=== PATIENT | male | born 1965 | race Caucasian/White ===

== ENCOUNTER → 2017-04-23 | Outpatient (REF) | payer MEDICAID ==
[~2017-04-23] MED LIST: /ADVA50050 IN; /ADVA50050 INH; /AMLO25TA PO; /AUGM25TA OR; /MOM400 PO; /TIOT18INH INH; /VERA40TA OR; ABIL5TAB5 PO; ACET65TA OR; ACTIVITY; ADV250INH INH; ALBU17IN INH; ALBUTEROL INH; ALBUTEROL INHALER INH; ALBUTEROL NEBS NEB; ALLE25CA OR; AMLO10TA2 PO; AMOX875T2 PO; ATOR1TAB21 PO; AZIT250T3 PO; Advair Diskus INH; Albuterol Inhaler INH; Albuterol Sulfate INH; Aspirin PO; BACT800T OR; CEFT250T OR; COLA100C2 OR; COLA50CA3 PO; COMBAER6 INH; DIET; DUONSOL IN; FLUC10TA OR; FOLI1TAB2 PO; FURO20TA2 OR; GUAI20TA PO; HANDIHALER INH; HYDR25TA7 OR; HYDR25TAB PO; IBUP100SUS PO; IBUP600T26 PO; IPRASOL4 IN; IPRASOL4 INH; LEVA500T PO; LEVA750T OR; LIPI20TA OR; LIPI20TA PO; LORATADINE OR; MIRALEX OR; MUCI600T34 PO; MULTLIQ7 PO; NICO14DI20 TD; NICO21DI4 TD; NICO21DI5 TD; NORCOTAB PO; NORV5TAB OR; Naprosyn; OMEP10CASR PO; OMEP20TA7 OR; OMEP40CA2 PO; Omeprazole PO; PERC7.5T12 PO; POTA20TA2 OR; PRED10TA PO; PRED10TA2 OR; PRED20TA OR; PRED20TAB PO; PRED50TA OR; PRED5SOL2 PO; PREDNISONE TAPER; PRIL20CA PO; PRIL40CA PO; PSEUDOEPHEDRINE OR; Ranitidine PO; SENN8.6T14 OR; SING10TA32 PO; SPIRIVA INH; Singular OR; TESS100C OR; TIOT18INH INH; TIZA4CAP3 PO; TRAZ50TA4 PO; TRIC145T19 OR; TRIL150T PO; TRILEPTAL PO; TYLE325T5 PO; VICO5TAB OR; VITAMIN D50000 UNT OR; WELLTAB38 PO; ZANT300T OR; ZITH500T OR; ZOLO50TA PO; [UNRECOGNIZED DRUG - OTHER]; [UNRECOGNIZED DRUG - REMARK]; calcium chew
[2017-04-23 13:48] LABS: BASO # 0.1 K/mm3 (0.0-0.2); BASO % 0.6 % (0.0-1.0); EOS # 0.2 K/mm3 (0.0-0.50); EOS % 2.1 % (0.0-3.0); LARGE UNSTAINED CELL # 0.1 K/mm3 (0.0-0.4); LARGE UNSTAINED CELL % 1.4 % (0.0-4.0); LYMPH # 2.4 K/mm3 (1.5-4.5); MEAN CORPUSCULAR HEMOGLOBIN 28.7 pg (27.0-33.0); MEAN CORPUSCULAR HGB CONC 32.9 g/dl (32.0-36.5); MEAN CORPUSCULAR VOLUME 87.2 fl (80.0-96.0); MONO # 0.5 K/mm3 (0.0-0.8); MONO % 5.2 % (0.0-5.0); NEUTROPHILS # 6.6 K/mm3 (1.8-7.7); NEUTROPHILS % 67.7 % (36.0-66.0); PLATELET COUNT, AUTOMATED 237 k/mm3 (150-450); RED CELL DISTRIBUTION WIDTH 12.6 % (11.5-14.5); WHITE BLOOD COUNT 9.8 K/mm3 (4.0-10.0)
[2017-04-23 16:50] LABS: ALBUMIN 3.9 GM/DL (3.2-5.2); ALBUMIN/GLOBULIN RATIO 1.08 (1.00-1.93); ALKALINE PHOSPHATASE 112 U/L (45-117); ALT/SGPT 34 U/L (12-78); ANION GAP 6 MEQ/L (8-16); AST/SGOT 16 U/L (15-37); BILIRUBIN,TOTAL 0.5 MG/DL (0.2-1.0); BLOOD UREA NITROGEN 9 MG/DL (7-18); CALCIUM LEVEL 9.1 MG/DL (8.5-10.1); CARBON DIOXIDE LEVEL 30 MEQ/L (21-32); CHLORIDE LEVEL 103 MEQ/L (98-107); CHOLESTEROL LEVEL 214 MG/DL (<200); CREATININE FOR GFR 0.86 MG/DL (0.70-1.30); GLOMERULAR FILTRATION RATE > 60.0 (>56); GLUCOSE, FASTING 83 MG/DL (70-105); POTASSIUM SERUM 3.9 MEQ/L (3.5-5.1); SODIUM LEVEL 139 MEQ/L (136-145); TOTAL PROTEIN 7.5 GM/DL (6.4-8.2); TRIGLYCERIDES LEVEL 222 MG/DL (<150)
== END ==
LOC: M LAB REF 13:19
PROVIDERS: ATTEND Family Medicine Addiction Medicine
DX: R73.09 Other abnormal glucose (principal)

== ENCOUNTER 2017-06-02 12:33 | Emergency (ER) | payer OTHER ==
[~2017-06-02] VITALS: Ht 172.7 cm; Wt 85.9 kg
[~2017-06-02 12:33] MED LIST changes: +ABIL1TAB11 PO; -ABIL5TAB5 PO; +AZIT-12 PO; -AZIT250T3 PO; -FOLI1TAB2 PO; +FOLI1TAB4 PO; +IBUP-1022 PO; -IBUP600T26 PO; +LEVA1TAB2 PO; -LEVA500T PO; +TRAZ50TA11 PO; -TRAZ50TA4 PO
[2017-06-02] MEDS ORDERED: ALBU17IN2 (12:47)
[2017-06-02] MEDS ORDERED: BUPR200T (12:47)
[2017-06-02] MEDS ORDERED: MIRT15TA3 (12:47)
[2017-06-02] MEDS ORDERED: SPIR1CAP (12:47)
[2017-06-02] MEDS ORDERED: OXCA150T (12:47)
[2017-06-02] MEDS ORDERED: ATOR1TAB21 (12:47)
[2017-06-02] MEDS ORDERED: ALBU83IN (12:47)
[2017-06-02] MEDS ORDERED: OMEP20CA3 (12:47)
[2017-06-02] MEDS ORDERED: CLINDAMYCIN 150 MG CAP PO ONE (13:30)
[2017-06-02] MEDS ORDERED: LIDOCAINE 2% MDV 20 ML VIAL SC ONE (13:30)
[2017-06-02] MEDS ORDERED: CLEO300C2 PO (14:06)
[2017-06-02 14:10] VITALS: BP 113/67
== END 2017-06-02 14:11 | disposition home or self-care (01) ==
LOC: M ED 12:33
DX: L02.413 Cutaneous abscess of right upper limb (principal); L02.512 Cutaneous abscess of left hand; M54.5 Low back pain; F41.9 Anxiety disorder, unspecified; F31.9 Bipolar disorder, unspecified; K21.9 Gastro-esophageal reflux disease without esophagitis; E78.00 Pure hypercholesterolemia, unspecified; G47.33 Obstructive sleep apnea (adult) (pediatric); F15.90 Other stimulant use, unspecified, uncomplicated; F17.200 Nicotine dependence, unspecified, uncomplicated; Z79.51 Long term (current) use of inhaled steroids; Z79.899 Other long term (current) drug therapy

== ENCOUNTER 2017-06-04 12:51 | Emergency (ER) | payer OTHER ==
[~2017-06-04] VITALS: Ht 172.7 cm; Wt 84.2 kg
[~2017-06-04 12:51] MED LIST changes: +ALBU17IN2; +ALBU83IN; +ATOR1TAB21; +BUPR200T; +CLEO300C2 PO; +MIRT15TA3; +OMEP20CA3; +OXCA150T; +SPIR1CAP
[2017-06-04 12:53] VITALS: BP 105/69
[2017-06-04] MEDS ORDERED: TRIP1OIN4 TOP (13:50)
== END 2017-06-04 14:31 | disposition home or self-care (01) ==
LOC: M ED 12:51
DX: L03.114 Cellulitis of left upper limb (principal); I10 Essential (primary) hypertension; J45.909 Unspecified asthma, uncomplicated; E78.5 Hyperlipidemia, unspecified; F43.10 Post-traumatic stress disorder, unspecified; F41.9 Anxiety disorder, unspecified; F31.9 Bipolar disorder, unspecified; F17.210 Nicotine dependence, cigarettes, uncomplicated; Z79.899 Other long term (current) drug therapy

== ENCOUNTER 2017-06-10 22:12 | Emergency (ER) | payer OTHER ==
[~2017-06-10] VITALS: Ht 172.7 cm; Wt 83.2 kg
[~2017-06-10 22:12] MED LIST changes: +TRIP1OIN4 TOP
[2017-06-10 22:24] VITALS: BP 114/72
[2017-06-10] MEDS ORDERED: ADVA230A INH (22:29)
--- NOTE | 2017-06-10 22:50 | REPUSA ---
CT of the head Clinical history: trauma. Comparison: 02/01/2015. Technique: Multiple axial CT images were obtained through the head without administration of contrast . Findings: The ventricles and sulci are symmetric bilaterally. There is no evidence of acute hemorrhag e or infarct. There is no midline shift, mass effect, or extra-axial fluid collection. The osseous st ructures are unremarkable. The visualized paranasal sinuses and mastoid air cells are clear. Impression: Negative study.
== END 2017-06-10 23:27 | disposition home or self-care (01) ==
LOC: EDBD 22:12 → M ED 22:12
DX: S00.93XA Contusion of unspecified part of head, initial encounter (principal); Y04.2XXA Assault by strike against or bumped into by another person, initial encounter; Y92.019 Unspecified place in single-family (private) house as the place of occurrence of the external cause; Y93.9 Activity, unspecified; Y99.8 Other external cause status; I10 Essential (primary) hypertension; J44.9 Chronic obstructive pulmonary disease, unspecified; F17.200 Nicotine dependence, unspecified, uncomplicated; Z79.51 Long term (current) use of inhaled steroids; Z79.899 Other long term (current) drug therapy

== ENCOUNTER 2019-01-05 18:57 | Emergency (ER) | payer MEDICAID, OTHER ==
[~2019-01-05] VITALS: Ht 172.7 cm; Wt 95.5 kg
[~2019-01-05 18:57] MED LIST changes: +ADVA230A INH; -AMLO10TA2 PO; +AMLO10TA5 PO; +FOLI1TAB11 PO; -FOLI1TAB4 PO; +IPRA0.00 IN; +IPRA0.00 INH; -IPRASOL4 IN; -IPRASOL4 INH; -NICO21DI5 TD; +NICO21DI6 TD; -OXCA150T; +OXCA150T21; +TIZA4CAP PO; -TIZA4CAP3 PO; +TRAZ-160 PO; -TRAZ50TA11 PO
[2019-01-05] MEDS ORDERED: NS 1,000 ML IV SCH (19:22)
[2019-01-05] MEDS ORDERED: IPRATROPIUM 0.5MG/ALBUTEROL 2.5MG INH SOL UD 3ML (DUONEB)(J7620) NEB PRN (19:30)
[2019-01-05] MEDS ORDERED: methylPREDNISolone INJ 125 MG/2 ML VIAL (J2930) IV ONE (19:30)
[2019-01-05] MEDS ORDERED: ASPIRIN 81 MG CHEW TABLET PO ONE (19:30)
[2019-01-05 19:33] LABS: BASO % 0.4 % (0.0-1.0); EOS # 0.3 10^3/uL (0.0-0.50); EOS % 2.7 % (0.0-3.0); HEMATOCRIT 47.2 % (42.0-52.0); HEMOGLOBIN 15.8 g/dl (13.5-17.5); LYMPH # 2.1 10^3/uL (1.5-4.5); LYMPH % 21.4 % (24.0-44.0); MEAN CORPUSCULAR HEMOGLOBIN 28.9 pg (27.0-33.0); MEAN CORPUSCULAR HGB CONC 33.5 g/dl (32.0-36.5); MEAN CORPUSCULAR VOLUME 86.3 fl (80.0-96.0); MONO # 0.8 10^3/uL (0.0-0.8); MONO % 8.4 % (0.0-5.0); NEUTROPHILS # 6.6 10^3/uL (1.8-7.7); NEUTROPHILS % 66.7 % (36.0-66.0); PLATELET COUNT, AUTOMATED 220 10^3/uL (150-450); RED BLOOD COUNT 5.47 10^6/uL (4.30-6.10); WHITE BLOOD COUNT 9.9 10^3/uL (4.0-10.0)
[2019-01-05 19:51] LABS: INR 0.95; PROTHROMBIN TIME 12.8 SECONDS (12.1-14.4)
[2019-01-05 19:56] LABS: VENOUS BASE EXCESS 0.5 (-2.0-2.0); VENOUS HCO3 26.9 MEQ/L (23.0-27.0); VENOUS O2 SATURATION 86.3 % (60.0-80.0); VENOUS PARTIAL PRESSURE CO2 49.3 mmHg (38.0-50.0); VENOUS PH 7.355 UNITS (7.330-7.430); VENOUS STANDARD HCO3 24.7 MEQ/L; VENOUS TOTAL CO2 28.4 MEQ/L (24.0-28.0)
[2019-01-05] MEDS ORDERED: ONDANSETRON 4MG/2ML VIAL (J2405) IV ONE (20:00)
[2019-01-05 20:09] LABS: ALBUMIN 3.5 GM/DL (3.2-5.2); ALT/SGPT 38 U/L (12-78); BILIRUBIN,DIRECT < 0.1 MG/DL (0.0-0.2); BILIRUBIN,TOTAL 0.3 MG/DL (0.2-1.0); BLOOD UREA NITROGEN 9 MG/DL (7-18); CALCIUM LEVEL 8.5 MG/DL (8.5-10.1); CARBON DIOXIDE LEVEL 31 MEQ/L (21-32); CHLORIDE LEVEL 103 MEQ/L (98-107); CPK CREATINE PHOSPHOKINASE 124 U/L (39-308); CREATININE FOR GFR 0.72 MG/DL (0.70-1.30); GLOMERULAR FILTRATION RATE > 60.0 (>56); GLUCOSE, FASTING 86 MG/DL (70-100); MB/CK RELATIVE INDEX 1.37 (< OR =4); POTASSIUM SERUM 4.1 MEQ/L (3.5-5.1); SODIUM LEVEL 140 MEQ/L (136-145); TOTAL PROTEIN 7.4 GM/DL (6.4-8.2); TROPONIN I < 0.02 NG/ML (< 0.10)
[2019-01-05 20:56] LABS: INFLUENZA A AMPLIFICATION NEGATIVE (NEGATIVE); INFLUENZA B AMPLIFICATION NEGATIVE (NEGATIVE)
--- NOTE | 2019-01-05 21:07 | REP ---
The portable chest, 07:53 p.m., single AP view, the patient upright: Comparison is 10/08, 12/18/2014. The lung lynch are clear. The cardiac size is normal. The varsha, mediastinum, and skeletal structures are unremarkable. Impression: Negative portable chest. There is no interval change. Electronically Signed by Greg Lovett MD 01/05/2019 08:58 P
[2019-01-05 21:15] VITALS: BP 127/63
[2019-01-05] MEDS ORDERED: KETOROLAC 30 MG/ML VIAL (J1885) IV ONE (21:45)
[2019-01-05] MEDS ORDERED: IPRATROPIUM 0.5MG/ALBUTEROL 2.5MG INH SOL UD 3ML (DUONEB)(J7620) NEB ONE (21:45)
--- NOTE | 2019-01-06 06:42 | ECGEPIP ---
Stationary ECG Study [facility] - ED Test Date: 2019-01-05 Pat Name: SEVERIANO DOYLE Department: Room: - Gender: M Jde Developer: : 1965 Requested By: CESAR CARSON Order Number: [id number] Reading MD: Jules Sorto Measurements Intervals [place] Rate: 89 P: 78 W[place]: 125 QRS: 82 QRSD: 69 T: 66 QT: 314 QTc: 383 Interpretive Statements SINUS RHYTHM POSSIBLE LEFT ATRIAL ENLARGEMENT SIMILAR TO 11/08/15 Electronically Signed On 01-06-2019 6:42:32 EST by Jules Sorto
== END 2019-01-05 22:07 | disposition left against medical advice (07) ==
LOC: M ED 18:57
DX: J44.1 Chronic obstructive pulmonary disease with (acute) exacerbation (principal); R06.02 Shortness of breath; E11.9 Type 2 diabetes mellitus without complications; I10 Essential (primary) hypertension; E78.5 Hyperlipidemia, unspecified; F17.200 Nicotine dependence, unspecified, uncomplicated
CPT/HCPCS: 36415; 71045; 80048; 80076; 82550; 82553; 82803; 85025; 85610; 87040; 87502; 93005; 93041; 96361; 96374; 96375; 99285; J2405; J2930

== ENCOUNTER 2019-09-09 04:42 | Inpatient (IN) | payer MEDICAID, SELFPAY ==
[~2019-09-09] VITALS: Ht 172.7 cm; Wt 74.7 kg
[~2019-09-09 04:42] MED LIST changes: -/ADVA50050 IN; -/ADVA50050 INH; -/AMLO25TA PO; -/MOM400 PO; -/TIOT18INH INH; -/VERA40TA OR; +ADVA1AER2 IN; +ADVA1AER2 INH; +HYDR-2541 PO; +HYDR-3715 PO; -HYDR25TAB PO; +IBUP100S44 PO; -IBUP100SUS PO; +MILK10SU PO; -NORCOTAB PO; +NORV2TAB PO; -OMEP20CA3; +OMEP20CA4; -OMEP40CA2 PO; +OMEP40CA97 PO; +PRED-351 PO; -PRED10TA PO; +SPIR1CAP INH; -TRAZ-160 PO; +TRAZ-252 PO; -TRIP1OIN4 TOP; +TRIPOIN9 TOP; +VERA1TAB23 OR
[2019-09-09] MEDS ORDERED: ONDANSETRON 4MG/2ML VIAL (J2405) IV ONE (05:30)
[2019-09-09] MEDS ORDERED: VANCOMYCIN HCL 1,000 MG, VIAL MATE ADAPTER 1 EACH in D5W 250 ML IV ONE (05:45)
[2019-09-09] MEDS ORDERED: PIPERACILLIN/TAZOBACTAM SOD 3.375 GM in D5W MINI-BAG PLUS 50 ML IV ONE (05:45)
[2019-09-09] MEDS: MORPHINE 4 MG/ML 1ML VIAL/SYRINGE (J2270) IV PRN ×4 (06:14→20:45)
[2019-09-09 06:22] LABS: BASO % 0.4 % (0.0-1.0); EOS # 0.3 10^3/uL (0.0-0.5); EOS % 2.9 % (0.0-3.0); HEMATOCRIT 44.6 % (42.0-52.0); HEMOGLOBIN 14.7 g/dl (13.5-17.5); LYMPH # 1.8 10^3/uL (1.5-5.0); LYMPH % 16.1 % (24.0-44.0); MEAN CORPUSCULAR HEMOGLOBIN 28.5 pg (27.0-33.0); MEAN CORPUSCULAR VOLUME 86.4 fl (80.0-96.0); MONO # 0.9 10^3/uL (0.0-0.8); MONO % 8.1 % (0.0-5.0); NEUTROPHILS # 8.2 10^3/uL (1.5-8.5); NEUTROPHILS % 72.1 % (36.0-66.0); PLATELET COUNT, AUTOMATED 211 10^3/uL (150-450); RED BLOOD COUNT 5.16 10^6/uL (4.30-6.10); WHITE BLOOD COUNT 11.4 10^3/uL (4.0-10.0)
--- NOTE | 2019-09-09 06:46 | REPVR ---
PROCEDURE INFORMATION: Exam: US Left Non-Vascular Joint or Other Extremity Structure, Limited Upper Extremity Exam date and time: 09/09/2019 6:22 AM Clinical history: 53 years old, male; Pain; Lower or forearm; Left; Additional info: Abscess left forearm TECHNIQUE: Imaging protocol: Left US Non-Vascular Joint or Other Extremity Structure. Limited exam of the upper extremity. COMPARISON: No relevant prior studies available. FINDINGS: Soft tissues: There is marked edema and increased echogenicity of the fat within the subcutaneous tissues of the left forearm. There is a somewhat poorly defined focal area of heterogeneous hypoechogenicity in the mid left forearm, likely representing complex fluid, measuring 2.0 x 1.7 x 2.4 cm. IMPRESSION: Somewhat poorly defined collection of complex fluid with marked adjacent edema and echogenic fat, consistent with early abscess or phlegmon. Electronically signed by: Marleni Gray On 09/09/2019 06:45:44 AM
[2019-09-09 06:51] LABS: BLOOD UREA NITROGEN 9 MG/DL (7-18); CALCIUM LEVEL 8.8 MG/DL (8.5-10.1); CARBON DIOXIDE LEVEL 29 MEQ/L (21-32); CHLORIDE LEVEL 106 MEQ/L (98-107); CREATININE FOR GFR 0.64 MG/DL (0.70-1.30); GLOMERULAR FILTRATION RATE > 60.0 (>56); GLUCOSE, FASTING 68 MG/DL (70-100); POTASSIUM SERUM 4.2 MEQ/L (3.5-5.1); SODIUM LEVEL 139 MEQ/L (136-145)
[2019-09-09] MEDS ORDERED: IPRATROPIUM 0.5MG/ALBUTEROL 2.5MG INH SOL UD 3ML (DUONEB)(J7620) NEB PRN (08:30)
--- NOTE | 2019-09-09 08:32 | CR.PDOC ---
General Surgery Consultation Date of Consultation 09/09/19 History and Physical CONSULT REPORT FOR: Purnima Dale MD (hospitalist service) REASON FOR CONSULTATION: left arm abscess HISTORY OF PRESENT ILLNESS: PAST MEDICAL HISTORY: 1. . PAST SURGICAL HISTORY: INCLUDES: 1. . PREVIOUS ANESTHESIA REACTIONS: ALLERGIES: Please see below. FAMILY HISTORY: . HOME MEDICATIONS: Please see below. REVIEW OF SYSTEMS: GENERAL: [Denies chills, reports weight gain, reports feeling febrile yesterday]. HEENT: [Denies blurred vision and double vision. Denies ear symptoms. Denies hoarseness]. NECK: Denies any neck pain]. CARDIOVASCULAR: [Denies chest pain and palpitations]. MUSCULOSKELETAL: [Denies arthralgias, back pain and thrombophlebitis]. SKIN: [Denies rash]. NEUROLOGIC: [Denies headache, stroke and transient ischemic attack]. PSYCHIATRIC: [Denies anxiety and depression]. ENDOCRINE: [Denies thyroid disease]. HEMATOLOGY/ONCOLOGY: [Denies bleeding or clotting disorder]. HEART: [Denies any chest pains, palpitations, paroxysmal dyspnea, orthopnea]. PULMONARY: [Denies chronic cough, dyspnea and wheezing]. GASTROINTESTINAL: [Denies rectal bleeding, family history of colon cancer, constipation, diarrhea, dysphagia, heartburn and jaundice]. GENITOURINARY: [Denies dysuria, frequency, hematuria and nocturia]. ENDOCRINE: [Denies polydipsia, polyphagia, polyuria, heat or cold intolerance]. INFECTIOUS: [Denies any recent upper respiratory tract infection, UTI, need for use of antibiotics]. NUTRITION: [Reports good appetite]. PHYSICAL EXAMINATION: VITALS SIGNS: Please see below. GENERAL APPEARANCE:[Patient seen, laying in bed, awake, alert, and oriented. Comfortable, in no acute distress]. SKIN: [Warm and moist]. HEENT: [Normocephalic, atraumatic. Colp palpebral conjunctiva, anicteric sclerae. Lips and mucosa appear moist]. NECK: [Supple, no thyromegaly. No obvious jugular venous distention]. LUNGS: [Clear to auscultation bilaterally. No wheezing appreciated]. HEART: [No chest wall abnormalities. Regular rate and rhythm with no murmurs appreciated]. ABDOMEN: Abdomen is , soft, . [No hepatosplenomegaly. No umbilical or groin herniations, nondistended. No noticeable rebound or guarding. No grimacing with palpation. No rebound tenderness. No masses appreciated]. EXTREMITIES: [Extremities have no deformities. No edema identified] ANCILLARIES: . LABORATORY DATA: Please see below. IMAGING STUDIES: Extremity US Soft tissues: There is marked edema and increased echogenicity of the fat within the subcutaneous tissues of the left forearm. There is a somewhat poorly defined focal area of heterogeneous hypoechogenicity in the mid left forearm, likely representing complex fluid, measuring 2.0 x 1.7 x 2.4 cm. IMPRESSION AND PLAN: left arm abscess Vital Signs Vital Signs Date Time Temp Pulse Resp B/P (MAP) Pulse Ox O2 Delivery O2 Flow Rate FiO2 09/09/19 06:47 88 18 119/72 (88) 99 Room Air 09/09/19 04:42 98.0 Laboratory Data Labs 24H Laboratory Tests 2 09/09/19 06:07: Immature Granulocyte % (Auto) 0.4, Neutrophils (%) (Auto) 72.1H, Lymphocytes (%) (Auto) 16.1L, Monocytes (%) (Auto) 8.1H, Eosinophils (%) (Auto) 2.9, Basophils (%) (Auto) 0.4, Neutrophils # (Auto) 8.2, Lymphocytes # (Auto) 1.8, Monocytes # (Auto) 0.9H, Eosinophils # (Auto) 0.3, Basophils # (Auto) 0.0, Nucleated Red Blo od Cells % (auto) 0.0, Anion Gap 4L, Glomerular Filtration Rate > 60.0, Calcium Level 8.8 CBC/BMP Laboratory Tests 09/09/19 06:07 Microbiology Microbiology 09/09/19 Blood Culture, Received Pending 09/09/19 Blood Culture, Received Pending Home Medications No Active Prescriptions or Reported Meds Allergies Coded Allergies: No Known Allergies (Verified , 02/08/04) CHELLY MCNAMARA MD Sep 09, 2019 08:32
[2019-09-09] MEDS ORDERED: PERCOCET 5MG/325MG TAB PO PRN (08:45)
[2019-09-09] MEDS ORDERED: LIDOCAINE W/EPINEPHRINE 1% 20ML VIAL SC SCH (08:45)
[2019-09-09] MEDS ORDERED: ENOXAPARIN 40 MG/0.4 ML SYRINGE (J1650) SC SCH (09:00)
--- NOTE | 2019-09-09 09:36 | ROOPDOC ---
[facility] Report Of Operation Report of Operation DATE OF PROCEDURE: 09/09/19 PREPROCEDURE DIAGNOSES: Left arm abscess with a history of IV drug use. POSTPROCEDURE DIAGNOSES: Left arm abscess, cellulitis and soft tissue infection. PROCEDURE: Incision and drainage of left arm abscess. SURGEON: Ulysses King MD BAG TURNER: Hipolito Garcia [facility] ANESTHESIA: Local anesthesia using 1% lidocaine containing epinephrine. ESTIMATED BLOOD LOSS: Approximately 10 mL. COMPLICATIONS: None. . PROCEDURE NOTE: Cultures were taken of the abscess DESCRIPTION OF PROCEDURE: Patient was positioned in the emergency room. A timeout was performed. The left arm area was prepped and draped in usual sterile fashion. This skin and soft tissue around the area of fluctuance which roughly measures about 3 x 2 cm at the medial aspect of his left forearm treated with local anesthesia. After adequate local anesthesia cruciate skin incision was created and taken deep through the skin with resulting drainage of abscess. There were some thick purulent material came out. The cruciate piece of skin was removed and the probe the wound for further sinus tracts from the main wound. After adequate hemostasis this was packed with 1/2 inch iodoform gauze with bulky gauze dressing. ULYSSES KING MD Sep 09, 2019 09:35
[2019-09-09 12:30] VITALS: BP 115/66
--- NOTE | 2019-09-09 13:09 | HPEPDOC ---
[facility] Medical History & Physical Date of Admission Sep 09, 2019 Date of Service: Sep 09, 2019 History and Physical CHIEF COMPLAINT: L. arm pain HISTORY OF PRESENT ILLNESS: Patient is a 53M with PMH COPD and IVDU presented to the ER with complaints of L. arm pain for the past several weeks after injecting cocaine. Reportedly started out with some irritation and progressively gotten worse over the past several weeks now with significant pain. He also reports associated chills but otherwise no noticable fevers or any other complaints apart from the pain. PAST MEDICAL HISTORY: Refer to [facility] PAST SURGICAL HISTORY: None SOCIAL HISTORY: Smokes 1/2 ppd. Denies alcohol use. Injects cocaine. FAMILY HISTORY: Cancers in parents ALLERGIES: Please see below. REVIEW OF SYSTEMS: 10 point review of system negative except as stated in [facility] HOME MEDICATIONS: Please see below. PHYSICAL EXAMINATION: General: Mild to moderate distress, Alert Eyes: Normal sclera, EOMI, JOVANNY HENT: Atraumatic Cardiovascular: Normal rate, normal rhythm Pulmonary: Clear to auscultation b/l, no wheezing GI: Soft, nontender, nondistended Skin: Warm and dry. L. mid anterior forearm with round erythematous elevated lesion. Neuro: CN grossly intact. No focal deficits. Psych: oriented x 3 LABORATORY DATA: See below. IMAGING: L. arm US- IMPRESSION: Somewhat poorly defined collection of complex fluid with marked adjacent edema and echogenic fat, consistent with early abscess or phlegmon. MICROBIOLOGY: Please see below. ASSESSMENT AND PLAN: 1. L. forearm abscess - 2/2 IVDU cocaine injection several weeks POA. - s/p I and D by surgery. - c/w antibiotics while pending cultures. - Pain control 2. COPD - No active issues at this time. - Duonebs PRN. Code status: Full code dispo: Home once medically stable Vital Signs Vital Signs Date Time Temp Pulse Resp B/P (MAP) Pulse Ox O2 Delivery O2 Flow Rate FiO2 09/09/19 12:30 98.7 103 19 115/66 (82) 98 Room Air Laboratory Data Labs 24H Laboratory Tests 2 09/09/19 06:07: Immature Granulocyte % (Auto) 0.4, Neutrophils (%) (Auto) 72.1H, Lymphocytes (%) (Auto) 16.1L, Monocytes (%) (Auto) 8.1H, Eosinophils (%) (Auto) 2.9, Basophils (%) (Auto) 0.4, Neutrophils # (Auto) 8.2, Lymphocytes # (Auto) 1.8, Monocytes # (Auto) 0.9H, Eosinophils # (Auto) 0.3, Basophils # (Auto) 0.0, Nucleated Red Blood Cells % (auto) 0.0, Anion Gap 4L, Glomerular Filtration Rate > 60.0, Calcium Level 8.8 CBC/BMP Laboratory Tests 09/09/19 06:07 Microbiology Microbiology 09/09/19 Gram Stain - Final, Resulted 09/09/19 Wound Culture, Resulted Pending 09/09/19 Blood Culture, Received Pending 09/09/19 Blood Culture, Received Pending Home Medications No Active Prescriptions or Reported Meds Allergies Coded Allergies: No Known Allergies (Verified , 02/08/04) A-FIB/CHADSVASC A-FIB History Current/History of A-Fib/PAF?: No DL WALLIS MD Sep 09, 2019 13:09
[2019-09-09 14:00] VITALS: BP 100/60
[2019-09-09 17:52] VITALS: BP 102/58
[2019-09-09 22:00] VITALS: BP 119/69
[2019-09-10 02:00] VITALS: BP 108/58
[2019-09-10 06:00] VITALS: BP 148/62
[2019-09-10 06:20] LABS: HEMATOCRIT 43.4 % (42.0-52.0); HEMOGLOBIN 14.3 g/dl (13.5-17.5); MEAN CORPUSCULAR HEMOGLOBIN 28.2 pg (27.0-33.0); MEAN CORPUSCULAR HGB CONC 32.9 g/dl (32.0-36.5); MEAN CORPUSCULAR VOLUME 85.6 fl (80.0-96.0); PLATELET COUNT, AUTOMATED 228 10^3/uL (150-450); RED BLOOD COUNT 5.07 10^6/uL (4.30-6.10); WHITE BLOOD COUNT 9.6 10^3/uL (4.0-10.0)
[2019-09-10 06:44] LABS: BLOOD UREA NITROGEN 8 MG/DL (7-18); CALCIUM LEVEL 9.3 MG/DL (8.5-10.1); CARBON DIOXIDE LEVEL 28 MEQ/L (21-32); CHLORIDE LEVEL 107 MEQ/L (98-107); CREATININE FOR GFR 0.62 MG/DL (0.70-1.30); GLOMERULAR FILTRATION RATE > 60.0 (>56); GLUCOSE, FASTING 107 MG/DL (70-100); SODIUM LEVEL 140 MEQ/L (136-145)
[2019-09-10] MEDS ORDERED: NICOTINE 14 MG/24 HR TRANSDERMAL TD SCH (09:00)
[2019-09-10] MEDS ORDERED: BACT800T5 PO (10:08)
--- NOTE | 2019-09-10 10:12 | DS.PDOC ---
Discharge Summary General Date of Admission Sep 09, 2019 at 08:13 Date of Discharge 09/10/19 Discharge Summary AMA NOTE/DISCHARGE SUMMARY ADMITTING DIAGNOSES: 1. L. arm abscess 2. IV drug use DISCHARGE DIAGNOSES: 1. L. arm abscess 2. IV drug use HOSPITAL COURSE: Patient 53M with history of IVDU presented to the ER with complaints of severe L. forearm pain after injecting himself with cocaine several weeks prior. He was started on IV abx and underwent I and D with surgery. He reported feeling better this morning and was notified by nursing staff that patient wants to sign out AMA. Spoke to patient regarding need to figure out a safe discharge plan. He agreed to stay but then notified again that he is leaving AMA shortly after. A 10 day course of Bactrim is sent to the pharmacy for patient. Vital Signs/I&Os Vital Signs Date Time Temp Pulse Resp B/P (MAP) Pulse Ox O2 Delivery O2 Flow Rate FiO2 09/10/19 06:20 16 09/10/19 06:00 97.3 81 148/62 (90) 100 09/09/19 20:45 Room Air I&O- Last 24 Hours up to 6 AM 09/10/19 06:00 Intake Total 2330 ml Output Total 1000 ml Balance 1330 ml Laboratory Data Labs 24H Laboratory Tests 2 09/10/19 05:49: Nucleated Red Blood Cells % (auto) 0.0, Anion Gap 5L, Glomerular Filtration Rate > 60.0, Calcium Level 9.3 CBC/BMP Laboratory Tests 09/10/19 05:49 Microbiology Microbiology 09/09/19 Gram Stain - Final, Resulted 09/09/19 Wound Culture, Resulted Pending 09/09/19 Blood Culture - Preliminary, Resulted No growth after 24 hours . All specim... 09/09/19 Blood Culture - Preliminary, Resulted No growth after 24 hours . All specim... Discharge Medications Scheduled Sulfamethoxazole/Trimethoprim (Bactrim Ds Tablet) 1 Each Tablet, 1 TAB PO BID Allergies Coded Allergies: No Known Allergies (Verified , 02/08/04) DL WALLIS MD Sep 10, 2019 10:12
== END 2019-09-10 09:25 | disposition left against medical advice (07) | DRG 383 ==
LOC: M ED 04:42 → M ED INP 08:13 → M MSPAV 12:29
PROVIDERS: ADMIT Student in an Organized Health Care Education/Training Program; ATTEND Student in an Organized Health Care Education/Training Program
PROC: 0HDLXZZ Extraction of Left Lower Leg Skin, External Approach (ICD-10-PCS; principal; 2019-09-09)
DX: L02.412 Cutaneous abscess of left axilla (principal); J44.9 Chronic obstructive pulmonary disease, unspecified; F17.200 Nicotine dependence, unspecified, uncomplicated; F14.90 Cocaine use, unspecified, uncomplicated

== ENCOUNTER 2022-11-16 21:14 | Emergency (ER) | payer OTHER, SELFPAY ==
[~2022-11-16] VITALS: Ht 167.6 cm; Wt 75.0 kg
[~2022-11-16 21:14] MED LIST changes: +ALBU2.5V10; -ALBU83IN; -AMLO10TA5 PO; +AMLO1TAB25 PO; +BACT800T5 PO; -BUPR200T; +BUPR200T41; +OMEP1CAP73; -OMEP20CA4; +OMEP40CA4 PO; -OMEP40CA97 PO
[2022-11-16] MEDS ORDERED: ISOVUE-370 76% 100ML VIAL As Ordered ONE (21:35)
[2022-11-16 21:57] LABS: BASO # 0.1 10^3/uL (0.0-0.2); BASO % 0.6 % (0.0-1.0); EOS # 0.2 10^3/uL (0.0-0.5); EOS % 2.2 % (0.0-3.0); HEMATOCRIT 52.3 % (42.0-52.0); HEMOGLOBIN 17.4 g/dl (13.5-17.5); LYMPH # 3.2 10^3/uL (1.5-5.0); LYMPH % 30.9 % (24.0-44.0); MEAN CORPUSCULAR HEMOGLOBIN 28.6 pg (27.0-33.0); MEAN CORPUSCULAR HGB CONC 33.3 g/dl (32.0-36.5); MEAN CORPUSCULAR VOLUME 85.9 fl (80.0-96.0); MONO # 0.9 10^3/uL (0.0-0.8); MONO % 8.7 % (2.0-8.0); NEUTROPHILS % 57.2 % (36.0-66.0); PLATELET COUNT, AUTOMATED 261 10^3/uL (150-450); RED BLOOD COUNT 6.09 10^6/uL (4.30-6.10); WHITE BLOOD COUNT 10.5 10^3/uL (4.0-10.0)
[2022-11-16 22:12] LABS: INR 0.95; PROTHROMBIN TIME 12.9 SECONDS (12.5-14.5)
[2022-11-16 22:13] LABS: PARTIAL THROMBOPLASTIN TIME 23.4 SECONDS (24.8-34.2)
[2022-11-16 22:26] LABS: ETHYL ALCOHOL (ETHANOL) 0.003 % (0.000-0.010)
[2022-11-16 22:30] LABS: CK-MB VALUE MASS 1.4 NG/ML (<3.6); MB/CK RELATIVE INDEX 1.04 (< OR =4)
[2022-11-16] MEDS ORDERED: ASPIRIN 81MG CHEW TABLET PO ONE (23:05)
[2022-11-16 23:58] LABS: RSV AMPLIFICATION NEGATIVE (NEGATIVE)
[2022-11-17 00:06] VITALS: BP 146/87
== END 2022-11-17 00:25 | disposition short-term general hospital (02) ==
LOC: M ED 21:14
DX: I65.01 Occlusion and stenosis of right vertebral artery (principal); I49.9 Cardiac arrhythmia, unspecified; I10 Essential (primary) hypertension; F19.10 Other psychoactive substance abuse, uncomplicated; F17.200 Nicotine dependence, unspecified, uncomplicated

== ENCOUNTER 2022-12-25 10:15 | Inpatient (IN) | payer MEDICAID, OTHER ==
[~2022-12-25] VITALS: Ht 172.7 cm; Wt 91.6 kg
[2022-12-25 11:58] VITALS: BP 152/88
[2022-12-25] MEDS ORDERED: FOLI1TAB11 PO (12:44)
[2022-12-25] MEDS ORDERED: FLON1SPR NARES (12:44)
[2022-12-25] MEDS ORDERED: RA M10TA PO (12:44)
[2022-12-25] MEDS ORDERED: CLOP75TA2 PO (12:44)
[2022-12-25] MEDS ORDERED: VITMTA PO (12:44)
[2022-12-25] MEDS ORDERED: PANT40TA29 PO (12:44)
[2022-12-25] MEDS ORDERED: ASPI81TA26 PO (12:44)
[2022-12-25] MEDS ORDERED: B-1100TA2 PO (12:44)
[2022-12-25] MEDS ORDERED: ATOR80TA59 PO (12:44)
[2022-12-25] MEDS ORDERED: HOME MED LIST COMPLETE! XX SCH (12:45)
[2022-12-25] MEDS ORDERED: GABAPENTIN 100 MG CAP PO SCH (13:20)
[2022-12-25] MEDS ORDERED: AMITRIPTYLINE 10MG TABLET PO ONE (14:00)
[2022-12-25 14:07] LABS: HEMATOCRIT 47.8 % (42.0-52.0); HEMOGLOBIN 15.9 g/dl (13.5-17.5); MEAN CORPUSCULAR HEMOGLOBIN 28.6 pg (27.0-33.0); MEAN CORPUSCULAR HGB CONC 33.3 g/dl (32.0-36.5); PLATELET COUNT, AUTOMATED 227 10^3/uL (150-450); RED BLOOD COUNT 5.56 10^6/uL (4.30-6.10); WHITE BLOOD COUNT 8.3 10^3/uL (4.0-10.0)
[2022-12-25 14:18] LABS: INR 1.02; PROTHROMBIN TIME 13.6 SECONDS (12.5-14.5)
[2022-12-25 14:19] LABS: PARTIAL THROMBOPLASTIN TIME 26.6 SECONDS (24.8-34.2)
[2022-12-25 14:24] LABS: ALBUMIN 3.8 G/DL (3.2-5.2); ALKALINE PHOSPHATASE 84 U/L (46-116); ALT/SGPT 109 U/L (7.0-40); AST/SGOT 57 U/L (<34); BILIRUBIN,TOTAL 0.5 MG/DL (0.3-1.2); BLOOD UREA NITROGEN 13 MG/DL (9-23); CALCIUM LEVEL 9.3 MG/DL (8.5-10.1); CARBON DIOXIDE LEVEL 27 MMOL/L (20-31); CHLORIDE LEVEL 102 MMOL/L (98-107); CREATININE FOR GFR 0.72 MG/DL (0.70-1.30); GLOMERULAR FILTRATION RATE > 60.0 (>56); GLUCOSE, FASTING 104 MG/DL (60-100); POTASSIUM SERUM 4.3 MMOL/L (3.5-5.1); SODIUM LEVEL 138 MMOL/L (136-145)
[2022-12-25] MEDS: ALBUTEROL 90 MCG/ACT 8GM HFA INHALER INH SCH ×2 (15:52→19:27)
[2022-12-25 16:30] VITALS: BP 118/69
[2022-12-25 20:37] VITALS: BP 128/79
[2022-12-25] MEDS: GABAPENTIN 100 MG CAP PO SCH (21:23)
[2022-12-25] MEDS: SENOKOT S TAB PO SCH (21:23)
[2022-12-25] MEDS: ACETAMINOPHEN 500 MG TAB PO PRN (21:26)
[2022-12-26] VITALS: BP 123/72
[2022-12-26 04:00] VITALS: BP 110/62
[2022-12-26] MEDS: ACETAMINOPHEN 500 MG TAB PO PRN (06:07)
[2022-12-26] MEDS ORDERED: traMADol 50 MG TAB PO ONE (07:20)
[2022-12-26 08:00] VITALS: BP 141/89
[2022-12-26] MEDS: ALBUTEROL 90 MCG/ACT 8GM HFA INHALER INH SCH ×3 (08:28→15:11)
[2022-12-26] MEDS ORDERED: ASPIRIN 81MG ENTERIC TABLET PO SCH (09:00)
[2022-12-26] MEDS ORDERED: ATORVASTATIN 20 MG TAB PO SCH (09:00)
[2022-12-26] MEDS ORDERED: PANTOPRAZOLE 40MG TAB (PROTONIX) PO SCH (09:00)
[2022-12-26] MEDS ORDERED: MULTIVITAMINS/MINERALS THERAP 1 TAB PO SCH (09:00)
[2022-12-26] MEDS ORDERED: FOLIC ACID 1MG TAB PO SCH (09:00)
[2022-12-26] MEDS ORDERED: THIAMINE 100 MG TAB PO SCH (09:00)
[2022-12-26] MEDS ORDERED: AMITRIPTYLINE 25MG TABLET PO ONE (09:00)
[2022-12-26] MEDS ORDERED: NICOTINE 14 MG/24 HR TRANSDERMAL TD SCH (09:00)
[2022-12-26] MEDS ORDERED: CLOPIDOGREL 75 MG TAB PO SCH (09:00)
[2022-12-26] MEDS: GABAPENTIN 100 MG CAP PO SCH (09:02)
[2022-12-26] MEDS: SENOKOT S TAB PO SCH (09:03)
[2022-12-26] MEDS ORDERED: AMIT25TA17 PO (11:36)
[2022-12-26] MEDS ORDERED: TRAM50TA2 PO (11:36)
[2022-12-26] MEDS ORDERED: GABA-1171 PO (11:36)
[2022-12-26] MEDS ORDERED: VENTAER INH (11:36)
== END 2022-12-26 16:00 | disposition home or self-care (01) | DRG 45 ==
LOC: M PCU 11:40
PROVIDERS: ADMIT Internal Medicine; ATTEND Internal Medicine Nephrology
DX: I63.9 Cerebral infarction, unspecified (principal); J44.9 Chronic obstructive pulmonary disease, unspecified; F17.200 Nicotine dependence, unspecified, uncomplicated; I69.354 Hemiplegia and hemiparesis following cerebral infarction affecting left non-dominant side; I69.322 Dysarthria following cerebral infarction; E78.5 Hyperlipidemia, unspecified; F31.9 Bipolar disorder, unspecified; Z91.51 Personal history of suicidal behavior; F41.9 Anxiety disorder, unspecified; H72.91 Unspecified perforation of tympanic membrane, right ear; Z20.822 Contact with and (suspected) exposure to COVID-19; Z79.82 Long term (current) use of aspirin; Z79.899 Other long term (current) drug therapy; Z88.5 Allergy status to narcotic agent; Z88.8 Allergy status to other drugs, medicaments and biological substances; Z59.00 Homelessness unspecified

== ENCOUNTER → 2023-01-02 | Outpatient (CLI) | payer OTHER ==
[~2023-01-02] MED LIST changes: +AMIT25TA17 PO; +ASPI81TA26 PO; +ATOR80TA59 PO; +B-1100TA2 PO; +CLOP75TA2 PO; +FLON1SPR NARES; +GABA-1171 PO; +PANT40TA29 PO; +RA M10TA PO; +TRAM50TA2 PO; +VENTAER INH; +VITMTA PO
== END ==
LOC: M RAD 11:53
PROVIDERS: ATTEND Family Medicine
DX: M25.512 Pain in left shoulder (principal)

== ENCOUNTER 2023-01-07 20:33 | Inpatient (IN) | payer OTHER ==
[~2023-01-07] VITALS: Ht 170.2 cm; Wt 93.6 kg
[~2023-01-07 20:33] MED LIST changes: +FLON1SPR; -FLON1SPR NARES; +MONT-5 PO; -SING10TA32 PO
[2023-01-07] MEDS ORDERED: LABETALOL 100MG/20ML VIAL IV STA (21:03)
[2023-01-07 21:41] LABS: BASO % 0.4 % (0.0-1.0); EOS # 0.2 10^3/uL (0.0-0.5); HEMATOCRIT 48.2 % (42.0-52.0); HEMOGLOBIN 15.9 g/dl (13.5-17.5); LYMPH # 1.2 10^3/uL (1.5-5.0); LYMPH % 14.9 % (24.0-44.0); MEAN CORPUSCULAR HEMOGLOBIN 28.4 pg (27.0-33.0); MEAN CORPUSCULAR VOLUME 86.2 fl (80.0-96.0); MONO # 0.7 10^3/uL (0.0-0.8); MONO % 9.2 % (2.0-8.0); NEUTROPHILS # 5.6 10^3/uL (1.5-8.5); NEUTROPHILS % 72.2 % (36.0-66.0); PLATELET COUNT, AUTOMATED 203 10^3/uL (150-450); RED BLOOD COUNT 5.59 10^6/uL (4.30-6.10); WHITE BLOOD COUNT 7.7 10^3/uL (4.0-10.0)
[2023-01-07 22:15] LABS: LIPASE 62 U/L (12-53)
[2023-01-07 22:18] LABS: THYROID STIMULATING HORMONE 0.912 uIU/ML (0.55-4.78)
[2023-01-07 22:20] LABS: FREE T4 1.01 NG/DL (0.89-1.76)
[2023-01-07 22:36] LABS: ALBUMIN 3.9 G/DL (3.2-5.2); ALKALINE PHOSPHATASE 96 U/L (46-116); ALT/SGPT 81 U/L (7.0-40); AST/SGOT 43 U/L (<34); BILIRUBIN,DIRECT 0.1 MG/DL (<0.4); BILIRUBIN,TOTAL 0.3 MG/DL (0.3-1.2); BLOOD UREA NITROGEN 12 MG/DL (9-23); CALCIUM LEVEL 8.8 MG/DL (8.5-10.1); CARBON DIOXIDE LEVEL 28 MMOL/L (20-31); CHLORIDE LEVEL 105 MMOL/L (98-107); CPK CREATINE PHOSPHOKINASE 117 U/L (46-171); CREATININE FOR GFR 0.68 MG/DL (0.70-1.30); GLOMERULAR FILTRATION RATE > 60.0 (>56); GLUCOSE, FASTING 89 MG/DL (60-100); MB/CK RELATIVE INDEX 0.85 (< OR =4); POTASSIUM SERUM 4.1 MMOL/L (3.5-5.1); SODIUM LEVEL 139 MMOL/L (136-145); TOTAL PROTEIN 7.8 G/DL (5.7-8.2)
[2023-01-07 22:47] LABS: MAGNESIUM LEVEL 1.7 MG/DL (1.8-2.4)
[2023-01-07] MEDS ORDERED: MAGNESIUM OXIDE 400MG TAB (MAG-OX) PO ONE (22:50)
[2023-01-07] MEDS ORDERED: ISOVUE-370 76% 100ML VIAL As Ordered ONE (22:58)
[2023-01-07] MEDS ORDERED: ONDANSETRON 4MG 2ML VIAL As Ordered ONE (23:20)
[2023-01-07] MEDS ORDERED: ONDANSETRON 4MG 2ML VIAL IV ONE (23:20)
[2023-01-08] VITALS (22 sets, daily range): BP systolic 96–148; BP diastolic 54–89
[2023-01-08] MEDS ORDERED: ONDANSETRON 4MG 2ML VIAL IV ONE (00:10)
[2023-01-08] MEDS ORDERED: guaiFENesin SYRUP 200MG 10ML UDC PO ONE (00:20)
[2023-01-08 02:57] LABS: AMPHETAMINES LEVEL URINE NEGATIVE (NEGATIVE)
[2023-01-08 02:58] LABS: BARBITURATES URINE NEGATIVE (NEGATIVE); BENZODIAZEPINES URINE NEGATIVE (NEGATIVE); CANNABINOIDS URINE NEGATIVE (NEGATIVE); COCAINE METABOLITE URINE NEGATIVE (NEGATIVE); METHADONE URINE NEGATIVE (NEGATIVE); OPIATES URINE NEGATIVE (NEGATIVE); PHENCYCLIDINE URINE NEGATIVE (NEGATIVE)
[2023-01-08 03:00] LABS: RSV AMPLIFICATION NEGATIVE (NEGATIVE)
[2023-01-08] MEDS: LORazepam 2 MG TAB PO PRN ×5 (04:00→22:36)
[2023-01-08] MEDS: THIAMINE 100 MG TAB PO SCH ×2 (04:11→20:50)
[2023-01-08] MEDS ORDERED: GABA-282 PO (04:11)
[2023-01-08] MEDS ORDERED: ALBU8.5H INH (04:11)
[2023-01-08] MEDS ORDERED: AMIT25TA17 PO (04:12)
[2023-01-08] MEDS ORDERED: ONDA-195 PO (04:12)
[2023-01-08] MEDS ORDERED: HOME MED LIST COMPLETE! XX SCH (04:15)
[2023-01-08] MEDS: IPRATROPIUM 0.5MG/ALBUTEROL 2.5MG INH SOL UD 3ML (DUONEB) NEB PRN ×2 (04:16→07:36)
[2023-01-08] MEDS ORDERED: NS 1,000 ML IV SCH (05:35)
[2023-01-08] MEDS ORDERED: ALBUTEROL 90 MCG/ACT 8GM HFA INHALER INH PRN (06:55)
[2023-01-08 07:24] LABS: HEMATOCRIT 46.1 % (42.0-52.0); HEMOGLOBIN 15.2 g/dl (13.5-17.5); MEAN CORPUSCULAR HEMOGLOBIN 28.6 pg (27.0-33.0); MEAN CORPUSCULAR VOLUME 86.7 fl (80.0-96.0); PLATELET COUNT, AUTOMATED 191 10^3/uL (150-450); RED BLOOD COUNT 5.32 10^6/uL (4.30-6.10); WHITE BLOOD COUNT 7.6 10^3/uL (4.0-10.0)
[2023-01-08 07:27] LABS: LIPASE 51 U/L (12-53)
[2023-01-08 07:29] LABS: AMYLASE 63 U/L (30-118)
[2023-01-08 07:30] LABS: ALBUMIN 3.6 G/DL (3.2-5.2); ALKALINE PHOSPHATASE 85 U/L (46-116); ALT/SGPT 73 U/L (7.0-40); AST/SGOT 40 U/L (<34); BILIRUBIN,TOTAL 0.3 MG/DL (0.3-1.2); BLOOD UREA NITROGEN 11 MG/DL (9-23); CALCIUM LEVEL 8.8 MG/DL (8.5-10.1); CARBON DIOXIDE LEVEL 28 MMOL/L (20-31); CHLORIDE LEVEL 104 MMOL/L (98-107); CREATININE FOR GFR 0.74 MG/DL (0.70-1.30); GLOMERULAR FILTRATION RATE > 60.0 (>56); GLUCOSE, FASTING 111 MG/DL (60-100); POTASSIUM SERUM 4.1 MMOL/L (3.5-5.1); SODIUM LEVEL 137 MMOL/L (136-145); TOTAL PROTEIN 7.3 G/DL (5.7-8.2)
[2023-01-08] MEDS: IPRATROPIUM 0.5MG/ALBUTEROL 2.5MG INH SOL UD 3ML (DUONEB) NEB SCH ×3 (08:00→19:35)
[2023-01-08] MEDS: CLOPIDOGREL 75 MG TAB PO SCH (08:53)
[2023-01-08] MEDS: MULTIVITAMINS/MINERALS THERAP 1 TAB PO SCH (08:53)
[2023-01-08] MEDS: ATORVASTATIN 20 MG TAB PO SCH (08:53)
[2023-01-08] MEDS: ASPIRIN 81MG ENTERIC TABLET PO SCH (08:54)
[2023-01-08] MEDS: FLUTICASONE PROP 0.05% NASAL SPRAY 16 GM (FLONASE) SCH (08:54)
[2023-01-08] MEDS: GABAPENTIN 300 MG CAP PO SCH ×3 (08:54→20:51)
[2023-01-08] MEDS: PANTOPRAZOLE 40MG TAB (PROTONIX) PO SCH (08:54)
[2023-01-08] MEDS: FOLIC ACID 1MG TAB PO SCH (08:54)
[2023-01-08] MEDS: ENOXAPARIN 40MG/0.4ML SYRINGE (J1650 PER 10MG) SC SCH (08:55)
[2023-01-08] MEDS: amLODIPine 5 MG TAB PO SCH (08:55)
[2023-01-08] MEDS ORDERED: methylPREDNISolone 40MG 1ML VIAL IV ONE (09:00)
[2023-01-08] MEDS ORDERED: EXCEDRIN MIGRAINE TABLET PO ONE (11:00)
[2023-01-08] MEDS: guaiFENesin ER 600 MG TAB PO SCH ×2 (13:59→20:50)
[2023-01-08 14:24] LABS: APPEARANCE, URINE CLEAR (CLEAR); BACTERIA, URINE AUTO NEGATIVE (NEGATIVE); BILIRUBIN, URINE AUTO NEGATIVE (NEGATIVE); BLOOD, URINE BLOOD NEGATIVE (NEGATIVE); COLOR, URINE YELLOW (YELLOW); GLUCOSE, URINE (UA) AUTO NEGATIVE (NEGATIVE); KETONE, URINE AUTO NEGATIVE (NEGATIVE); LEUKOCYTE ESTERASE, URINE AUTO NEGATIVE (NEGATIVE); MUCUS, URINE SMALL (NEGATIVE); NITRITE, URINE AUTO NEGATIVE (NEGATIVE); PROTEIN, URINE AUTO NEGATIVE (NEGATIVE); RBC, URINE AUTO 0 /HPF (0-3); SPECIFIC GRAVITY URINE AUTO 1.018 (1.002-1.035); SQUAMOUS EPITHELIAL CELL UR AU 0 /HPF (0-6); UROBILINOGEN, URINE AUTO 0.2 mg/dL (0.0-2.0); WBC, URINE AUTO 2 /HPF (0-3)
[2023-01-08] MEDS ORDERED: methylPREDNISolone 125MG 2ML VIAL IV ONE (19:15)
[2023-01-08] MEDS: AMITRIPTYLINE 25MG TABLET PO SCH (20:51)
[2023-01-09] VITALS: BP 138/88
[2023-01-09] MEDS: IPRATROPIUM 0.5MG/ALBUTEROL 2.5MG INH SOL UD 3ML (DUONEB) NEB SCH ×7 (00:26→23:33)
[2023-01-09 04:00] VITALS: BP 154/93
[2023-01-09 04:37] LABS: BASO % 0.1 % (0.0-1.0); HEMATOCRIT 42.9 % (42.0-52.0); HEMOGLOBIN 14.3 g/dl (13.5-17.5); LYMPH # 1.1 10^3/uL (1.5-5.0); LYMPH % 8.5 % (24.0-44.0); MEAN CORPUSCULAR HEMOGLOBIN 28.8 pg (27.0-33.0); MEAN CORPUSCULAR HGB CONC 33.3 g/dl (32.0-36.5); MEAN CORPUSCULAR VOLUME 86.5 fl (80.0-96.0); MONO # 0.5 10^3/uL (0.0-0.8); NEUTROPHILS # 11.3 10^3/uL (1.5-8.5); PLATELET COUNT, AUTOMATED 207 10^3/uL (150-450); RED BLOOD COUNT 4.96 10^6/uL (4.30-6.10)
[2023-01-09] MEDS ORDERED: METOPROLOL TART 50 MG TAB PO ONE (05:00)
[2023-01-09 05:05] LABS: BLOOD UREA NITROGEN 11 MG/DL (9-23); CALCIUM LEVEL 9.1 MG/DL (8.5-10.1); CARBON DIOXIDE LEVEL 24 MMOL/L (20-31); CHLORIDE LEVEL 103 MMOL/L (98-107); CREATININE FOR GFR 0.64 MG/DL (0.70-1.30); GLOMERULAR FILTRATION RATE > 60.0 (>56); GLUCOSE, FASTING 348 MG/DL (60-100); MAGNESIUM LEVEL 1.7 MG/DL (1.8-2.4); POTASSIUM SERUM 4.1 MMOL/L (3.5-5.1); SODIUM LEVEL 137 MMOL/L (136-145)
[2023-01-09 06:00] VITALS: BP 164/71
[2023-01-09] MEDS: MAG SULF 1GM/100ML (MAG RUN) 1 GM in IV 1 EA IV SCH ×2 (08:11→09:41)
[2023-01-09] MEDS: ENOXAPARIN 40MG/0.4ML SYRINGE (J1650 PER 10MG) SC SCH (08:12)
[2023-01-09] MEDS: PANTOPRAZOLE 40MG TAB (PROTONIX) PO SCH (08:12)
[2023-01-09] MEDS: MULTIVITAMINS/MINERALS THERAP 1 TAB PO SCH (08:12)
[2023-01-09] MEDS: ASPIRIN 81MG ENTERIC TABLET PO SCH (08:12)
[2023-01-09] MEDS: CLOPIDOGREL 75 MG TAB PO SCH (08:13)
[2023-01-09] MEDS: THIAMINE 100 MG TAB PO SCH ×2 (08:13→21:13)
[2023-01-09] MEDS: TOPIRAMATE (TopAMAX) 25 MG TAB PO SCH (08:13)
[2023-01-09] MEDS: ATORVASTATIN 20 MG TAB PO SCH (08:13)
[2023-01-09] MEDS: guaiFENesin ER 600 MG TAB PO SCH ×2 (08:14→21:13)
[2023-01-09] MEDS: FLUTICASONE PROP 0.05% NASAL SPRAY 16 GM (FLONASE) SCH (08:14)
[2023-01-09] MEDS: amLODIPine 5 MG TAB PO SCH (08:14)
[2023-01-09] MEDS: GABAPENTIN 300 MG CAP PO SCH ×3 (08:16→21:00)
[2023-01-09] MEDS: FOLIC ACID 1MG TAB PO SCH (08:16)
[2023-01-09 09:00] VITALS: BP 156/81
[2023-01-09] MEDS: PROPRANOLOL 10 MG TAB PO SCH ×2 (09:43→21:13)
[2023-01-09] MEDS ORDERED: OLANZapine INTRAMUSCULAR 10MG VIAL IM ONE (10:10)
[2023-01-09] MEDS: ONDANSETRON 4MG TAB PO PRN (13:09)
[2023-01-09 20:00] VITALS: BP 118/61
[2023-01-09] MEDS: AMITRIPTYLINE 25MG TABLET PO SCH (21:13)
[2023-01-09 22:25] VITALS: BP 138/79
[2023-01-09] MEDS: LIDOCAINE 5% (LIDODERM) PATCH TD SCH (22:27)
[2023-01-09] MEDS: QUEtiapine FUMARATE 25 MG TAB PO SCH (23:28)
[2023-01-10] MEDS: methylPREDNISolone 40MG 1ML VIAL IV SCH ×4 (00:11→22:58)
[2023-01-10 00:40] VITALS: BP 157/96
[2023-01-10] MEDS: IPRATROPIUM 0.5MG/ALBUTEROL 2.5MG INH SOL UD 3ML (DUONEB) NEB SCH ×5 (03:25→19:48)
[2023-01-10 04:09] VITALS: BP 141/81
[2023-01-10 05:38] LABS: BASO % 0.1 % (0.0-1.0); EOS % 0.1 % (0.0-3.0); HEMATOCRIT 44.9 % (42.0-52.0); HEMOGLOBIN 14.5 g/dl (13.5-17.5); LYMPH # 1.2 10^3/uL (1.5-5.0); LYMPH % 9.3 % (24.0-44.0); MEAN CORPUSCULAR HEMOGLOBIN 28.6 pg (27.0-33.0); MEAN CORPUSCULAR HGB CONC 32.3 g/dl (32.0-36.5); MEAN CORPUSCULAR VOLUME 88.6 fl (80.0-96.0); MONO # 0.4 10^3/uL (0.0-0.8); MONO % 3.2 % (2.0-8.0); NEUTROPHILS # 11.2 10^3/uL (1.5-8.5); NEUTROPHILS % 86.5 % (36.0-66.0); PLATELET COUNT, AUTOMATED 202 10^3/uL (150-450); RED BLOOD COUNT 5.07 10^6/uL (4.30-6.10)
[2023-01-10 07:23] LABS: ALBUMIN 3.5 G/DL (3.2-5.2); ALKALINE PHOSPHATASE 91 U/L (46-116); ALT/SGPT 67 U/L (7.0-40); AST/SGOT 29 U/L (<34); BILIRUBIN,DIRECT < 0.1 MG/DL (<0.4); BILIRUBIN,TOTAL 0.2 MG/DL (0.3-1.2); BLOOD UREA NITROGEN 9 MG/DL (9-23); CALCIUM LEVEL 9.1 MG/DL (8.5-10.1); CARBON DIOXIDE LEVEL 27 MMOL/L (20-31); CHLORIDE LEVEL 105 MMOL/L (98-107); CREATININE FOR GFR 0.64 MG/DL (0.70-1.30); GLOMERULAR FILTRATION RATE > 60.0 (>56); GLUCOSE, FASTING 356 MG/DL (60-100); POTASSIUM SERUM 4.5 MMOL/L (3.5-5.1); SODIUM LEVEL 138 MMOL/L (136-145); TOTAL PROTEIN 7.4 G/DL (5.7-8.2)
[2023-01-10 08:05] VITALS: BP 136/80
[2023-01-10] MEDS ORDERED: methylPREDNISolone 125MG 2ML VIAL IV ONE (08:10)
[2023-01-10] MEDS ORDERED: IPRATROPIUM 0.5MG/ALBUTEROL 2.5MG INH SOL UD 3ML (DUONEB) NEB ONE (08:10)
[2023-01-10] MEDS: guaiFENesin ER 600 MG TAB PO SCH ×2 (08:37→20:14)
[2023-01-10] MEDS: ENOXAPARIN 40MG/0.4ML SYRINGE (J1650 PER 10MG) SC SCH (08:37)
[2023-01-10] MEDS: MULTIVITAMINS/MINERALS THERAP 1 TAB PO SCH (08:37)
[2023-01-10] MEDS: ASPIRIN 81MG ENTERIC TABLET PO SCH (08:38)
[2023-01-10] MEDS: FOLIC ACID 1MG TAB PO SCH (08:38)
[2023-01-10] MEDS: ATORVASTATIN 20 MG TAB PO SCH (08:38)
[2023-01-10] MEDS: ACETAMINOPHEN TAB 650MG DOSE (2X325MG) PO PRN (08:38)
[2023-01-10] MEDS: amLODIPine 5 MG TAB PO SCH (08:38)
[2023-01-10] MEDS: TOPIRAMATE (TopAMAX) 25 MG TAB PO SCH (08:39)
[2023-01-10] MEDS: PROPRANOLOL 10 MG TAB PO SCH ×2 (08:39→20:12)
[2023-01-10] MEDS: THIAMINE 100 MG TAB PO SCH ×2 (08:39→20:12)
[2023-01-10] MEDS: CLOPIDOGREL 75 MG TAB PO SCH (08:39)
[2023-01-10] MEDS: PANTOPRAZOLE 40MG TAB (PROTONIX) PO SCH (08:39)
[2023-01-10] MEDS: FLUTICASONE PROP 0.05% NASAL SPRAY 16 GM (FLONASE) SCH (08:41)
[2023-01-10 10:23] LABS: HEMOGLOBIN A1c 5.8 % (4.0-6.0)
[2023-01-10 11:53] VITALS: BP 118/59
[2023-01-10 15:31] LABS: HEPATITIS B SURFACE ANTIGEN NEGATIVE (NEGATIVE)
[2023-01-10 15:52] LABS: HEPATITIS B CORE ANTIBODY IGM NEGATIVE (NEGATIVE)
[2023-01-10 16:01] LABS: HEPATITIS C VIRUS ABY INDEX > 11.0 INDEX (<0.8)
[2023-01-10 16:45] VITALS: BP 142/78
[2023-01-10] MEDS: BUDESONIDE 180MCG INHALER (PULMICORT FLEXHALER) INH SCH (19:48)
[2023-01-10 20:00] VITALS: BP 136/74
[2023-01-10] MEDS: LIDOCAINE 5% (LIDODERM) PATCH TD SCH (20:11)
[2023-01-10] MEDS: AMITRIPTYLINE 25MG TABLET PO SCH (20:12)
[2023-01-10] MEDS: QUEtiapine FUMARATE 25 MG TAB PO SCH (20:12)
[2023-01-11] VITALS (7 sets, daily range): BP systolic 111–140; BP diastolic 63–84
[2023-01-11] MEDS: ONDANSETRON 4MG TAB PO PRN ×2 (00:10→12:47)
[2023-01-11] MEDS: IPRATROPIUM 0.5MG/ALBUTEROL 2.5MG INH SOL UD 3ML (DUONEB) NEB SCH ×7 (03:00→23:00)
[2023-01-11] MEDS: methylPREDNISolone 40MG 1ML VIAL IV SCH ×3 (06:01→18:12)
[2023-01-11 06:13] LABS: BASO % 0.1 % (0.0-1.0); HEMATOCRIT 41.6 % (42.0-52.0); HEMOGLOBIN 13.5 g/dl (13.5-17.5); LYMPH # 1.5 10^3/uL (1.5-5.0); MEAN CORPUSCULAR HEMOGLOBIN 28.4 pg (27.0-33.0); MEAN CORPUSCULAR HGB CONC 32.5 g/dl (32.0-36.5); MEAN CORPUSCULAR VOLUME 87.4 fl (80.0-96.0); MONO # 0.9 10^3/uL (0.0-0.8); NEUTROPHILS # 15.8 10^3/uL (1.5-8.5); NEUTROPHILS % 84.7 % (36.0-66.0); PLATELET COUNT, AUTOMATED 208 10^3/uL (150-450); RED BLOOD COUNT 4.76 10^6/uL (4.30-6.10); WHITE BLOOD COUNT 18.7 10^3/uL (4.0-10.0)
[2023-01-11 06:47] LABS: BLOOD UREA NITROGEN 17 MG/DL (9-23); CALCIUM LEVEL 8.8 MG/DL (8.5-10.1); CARBON DIOXIDE LEVEL 27 MMOL/L (20-31); CHLORIDE LEVEL 103 MMOL/L (98-107); CREATININE FOR GFR 0.62 MG/DL (0.70-1.30); GLOMERULAR FILTRATION RATE > 60.0 (>56); GLUCOSE, FASTING 287 MG/DL (60-100); POTASSIUM SERUM 4.4 MMOL/L (3.5-5.1); SODIUM LEVEL 137 MMOL/L (136-145)
[2023-01-11] MEDS: BUDESONIDE 180MCG INHALER (PULMICORT FLEXHALER) INH SCH ×2 (08:01→19:53)
[2023-01-11] MEDS: amLODIPine 5 MG TAB PO SCH (09:00)
[2023-01-11] MEDS: GABAPENTIN 300 MG CAP PO SCH ×3 (09:14→20:54)
[2023-01-11] MEDS: guaiFENesin ER 600 MG TAB PO SCH ×2 (09:15→20:53)
[2023-01-11] MEDS: ASPIRIN 81MG ENTERIC TABLET PO SCH (09:15)
[2023-01-11] MEDS: PANTOPRAZOLE 40MG TAB (PROTONIX) PO SCH (09:15)
[2023-01-11] MEDS: TOPIRAMATE (TopAMAX) 25 MG TAB PO SCH (09:15)
[2023-01-11] MEDS: FOLIC ACID 1MG TAB PO SCH (09:16)
[2023-01-11] MEDS: MULTIVITAMINS/MINERALS THERAP 1 TAB PO SCH (09:16)
[2023-01-11] MEDS: PROPRANOLOL 10 MG TAB PO SCH ×3 (09:16→20:55)
[2023-01-11] MEDS: CLOPIDOGREL 75 MG TAB PO SCH (09:16)
[2023-01-11] MEDS: FLUTICASONE PROP 0.05% NASAL SPRAY 16 GM (FLONASE) SCH (09:17)
[2023-01-11] MEDS: ATORVASTATIN 20 MG TAB PO SCH (09:17)
[2023-01-11] MEDS: ENOXAPARIN 40MG/0.4ML SYRINGE (J1650 PER 10MG) SC SCH (09:17)
[2023-01-11] MEDS: AZITHROMYCIN 250MG TABLET PO SCH (15:51)
[2023-01-11] MEDS: LIDOCAINE 5% (LIDODERM) PATCH TD SCH (20:53)
[2023-01-11] MEDS: AMITRIPTYLINE 25MG TABLET PO SCH (20:54)
[2023-01-11] MEDS: QUEtiapine FUMARATE 25 MG TAB PO SCH (20:54)
[2023-01-11] MEDS: ACETAMINOPHEN TAB 650MG DOSE (2X325MG) PO PRN (23:58)
[2023-01-12] MEDS: methylPREDNISolone 40MG 1ML VIAL IV SCH ×4 (00:01→18:36)
[2023-01-12] MEDS: IPRATROPIUM 0.5MG/ALBUTEROL 2.5MG INH SOL UD 3ML (DUONEB) NEB SCH ×6 (03:06→23:20)
[2023-01-12 04:21] VITALS: BP 113/63
[2023-01-12 06:07] LABS: BASO % 0.2 % (0.0-1.0); HEMATOCRIT 43.2 % (42.0-52.0); HEMOGLOBIN 14.2 g/dl (13.5-17.5); LYMPH # 1.3 10^3/uL (1.5-5.0); LYMPH % 7.1 % (24.0-44.0); MEAN CORPUSCULAR HEMOGLOBIN 28.3 pg (27.0-33.0); MEAN CORPUSCULAR HGB CONC 32.9 g/dl (32.0-36.5); MEAN CORPUSCULAR VOLUME 86.2 fl (80.0-96.0); MONO # 0.6 10^3/uL (0.0-0.8); MONO % 3.5 % (2.0-8.0); NEUTROPHILS # 15.3 10^3/uL (1.5-8.5); NEUTROPHILS % 86.4 % (36.0-66.0); PLATELET COUNT, AUTOMATED 217 10^3/uL (150-450); RED BLOOD COUNT 5.01 10^6/uL (4.30-6.10); WHITE BLOOD COUNT 17.8 10^3/uL (4.0-10.0)
[2023-01-12 06:40] LABS: BLOOD UREA NITROGEN 19 MG/DL (9-23); CALCIUM LEVEL 9.4 MG/DL (8.5-10.1); CARBON DIOXIDE LEVEL 25 MMOL/L (20-31); CHLORIDE LEVEL 101 MMOL/L (98-107); CREATININE FOR GFR 0.62 MG/DL (0.70-1.30); GLOMERULAR FILTRATION RATE > 60.0 (>56); GLUCOSE, FASTING 260 MG/DL (60-100); MAGNESIUM LEVEL 2.1 MG/DL (1.8-2.4); POTASSIUM SERUM 4.4 MMOL/L (3.5-5.1); SODIUM LEVEL 135 MMOL/L (136-145)
[2023-01-12 07:36] VITALS: BP 146/86
[2023-01-12] MEDS: BUDESONIDE 180MCG INHALER (PULMICORT FLEXHALER) INH SCH ×2 (08:24→19:25)
[2023-01-12] MEDS: amLODIPine 5 MG TAB PO SCH (09:00)
[2023-01-12] MEDS: AZITHROMYCIN 250MG TABLET PO SCH (09:02)
[2023-01-12] MEDS: PROPRANOLOL 10 MG TAB PO SCH ×3 (09:02→20:39)
[2023-01-12] MEDS: ENOXAPARIN 40MG/0.4ML SYRINGE (J1650 PER 10MG) SC SCH (09:02)
[2023-01-12] MEDS: TOPIRAMATE (TopAMAX) 25 MG TAB PO SCH (09:02)
[2023-01-12] MEDS: ASPIRIN 81MG ENTERIC TABLET PO SCH (09:02)
[2023-01-12] MEDS: CLOPIDOGREL 75 MG TAB PO SCH (09:03)
[2023-01-12] MEDS: MULTIVITAMINS/MINERALS THERAP 1 TAB PO SCH (09:03)
[2023-01-12] MEDS: ATORVASTATIN 20 MG TAB PO SCH (09:03)
[2023-01-12] MEDS: guaiFENesin ER 600 MG TAB PO SCH ×2 (09:03→20:40)
[2023-01-12] MEDS: GABAPENTIN 300 MG CAP PO SCH ×3 (09:03→20:40)
[2023-01-12] MEDS: FLUTICASONE PROP 0.05% NASAL SPRAY 16 GM (FLONASE) SCH (09:04)
[2023-01-12] MEDS: FOLIC ACID 1MG TAB PO SCH (09:04)
[2023-01-12] MEDS: PANTOPRAZOLE 40MG TAB (PROTONIX) PO SCH (09:04)
[2023-01-12] MEDS: SODIUM CHLORIDE HYPERTONIC 3% 15ML NEB SOL INH SCH ×4 (11:14→23:20)
[2023-01-12 12:00] VITALS: BP 133/73
[2023-01-12] MEDS: ACETAMINOPHEN TAB 650MG DOSE (2X325MG) PO PRN (12:18)
[2023-01-12 16:00] VITALS: BP 147/77
[2023-01-12 20:00] VITALS: BP 142/68
[2023-01-12] MEDS: AMITRIPTYLINE 25MG TABLET PO SCH (20:39)
[2023-01-12] MEDS: QUEtiapine FUMARATE 25 MG TAB PO SCH (20:40)
[2023-01-12] MEDS: LIDOCAINE 5% (LIDODERM) PATCH TD SCH (20:40)
[2023-01-13] VITALS: BP 146/80
[2023-01-13] MEDS: methylPREDNISolone 40MG 1ML VIAL IV SCH ×4 (00:05→18:45)
[2023-01-13 04:00] VITALS: BP 156/92
[2023-01-13] MEDS: SODIUM CHLORIDE HYPERTONIC 3% 15ML NEB SOL INH SCH ×6 (04:01→23:44)
[2023-01-13] MEDS: IPRATROPIUM 0.5MG/ALBUTEROL 2.5MG INH SOL UD 3ML (DUONEB) NEB SCH ×6 (04:01→23:44)
[2023-01-13 07:28] LABS: BASO # 0.1 10^3/uL (0.0-0.2); BASO % 0.3 % (0.0-1.0); EOS # 0.1 10^3/uL (0.0-0.5); EOS % 0.4 % (0.0-3.0); HEMATOCRIT 44.7 % (42.0-52.0); HEMOGLOBIN 14.8 g/dl (13.5-17.5); LYMPH # 1.4 10^3/uL (1.5-5.0); MEAN CORPUSCULAR HEMOGLOBIN 28.2 pg (27.0-33.0); MEAN CORPUSCULAR HGB CONC 33.1 g/dl (32.0-36.5); MEAN CORPUSCULAR VOLUME 85.3 fl (80.0-96.0); MONO # 0.9 10^3/uL (0.0-0.8); MONO % 4.6 % (2.0-8.0); NEUTROPHILS # 16.9 10^3/uL (1.5-8.5); NEUTROPHILS % 84.3 % (36.0-66.0); PLATELET COUNT, AUTOMATED 245 10^3/uL (150-450); RED BLOOD COUNT 5.24 10^6/uL (4.30-6.10); WHITE BLOOD COUNT 20.1 10^3/uL (4.0-10.0)
[2023-01-13] MEDS: FOLIC ACID 1MG TAB PO SCH (08:21)
[2023-01-13] MEDS: ATORVASTATIN 20 MG TAB PO SCH (08:21)
[2023-01-13 08:22] VITALS: BP 134/84
[2023-01-13] MEDS: TOPIRAMATE (TopAMAX) 25 MG TAB PO SCH (08:22)
[2023-01-13] MEDS: amLODIPine 5 MG TAB PO SCH (08:22)
[2023-01-13] MEDS: CLOPIDOGREL 75 MG TAB PO SCH (08:23)
[2023-01-13] MEDS: ASPIRIN 81MG ENTERIC TABLET PO SCH (08:23)
[2023-01-13] MEDS: PROPRANOLOL 10 MG TAB PO SCH ×3 (08:23→20:21)
[2023-01-13] MEDS: AZITHROMYCIN 250MG TABLET PO SCH (08:23)
[2023-01-13] MEDS: guaiFENesin ER 600 MG TAB PO SCH ×2 (08:23→20:21)
[2023-01-13] MEDS: GABAPENTIN 300 MG CAP PO SCH ×3 (08:24→20:21)
[2023-01-13] MEDS: PANTOPRAZOLE 40MG TAB (PROTONIX) PO SCH ×2 (08:24→20:21)
[2023-01-13] MEDS: MULTIVITAMINS/MINERALS THERAP 1 TAB PO SCH (08:24)
[2023-01-13] MEDS: ENOXAPARIN 40MG/0.4ML SYRINGE (J1650 PER 10MG) SC SCH (08:25)
[2023-01-13] MEDS: FLUTICASONE PROP 0.05% NASAL SPRAY 16 GM (FLONASE) SCH (08:26)
[2023-01-13] MEDS: BUDESONIDE 180MCG INHALER (PULMICORT FLEXHALER) INH SCH ×2 (08:36→20:18)
[2023-01-13 10:29] LABS: BLOOD UREA NITROGEN 24 MG/DL (9-23); CALCIUM LEVEL 8.9 MG/DL (8.5-10.1); CARBON DIOXIDE LEVEL 26 MMOL/L (20-31); CHLORIDE LEVEL 101 MMOL/L (98-107); CREATININE FOR GFR 0.65 MG/DL (0.70-1.30); GLOMERULAR FILTRATION RATE > 60.0 (>56); GLUCOSE, FASTING 178 MG/DL (60-100); MAGNESIUM LEVEL 2.1 MG/DL (1.8-2.4); POTASSIUM SERUM 4.1 MMOL/L (3.5-5.1); SODIUM LEVEL 138 MMOL/L (136-145)
[2023-01-13] MEDS: MONTELUKAST 10 MG TAB PO SCH (12:03)
[2023-01-13 15:33] VITALS: BP 144/79
[2023-01-13] MEDS: ACETAMINOPHEN TAB 650MG DOSE (2X325MG) PO PRN ×2 (16:38→22:51)
[2023-01-13 19:43] VITALS: BP 156/87
[2023-01-13] MEDS: AMITRIPTYLINE 25MG TABLET PO SCH (20:16)
[2023-01-13] MEDS: QUEtiapine FUMARATE 25 MG TAB PO SCH (20:21)
[2023-01-13] MEDS: LIDOCAINE 5% (LIDODERM) PATCH TD SCH (20:22)
[2023-01-13] MEDS ORDERED: POLYVINYL ALCOHOL OPHTH SOLN 15ML (LIQUITEARS) OU PRN (20:35)
[2023-01-13 21:38] VITALS: BP 150/96
[2023-01-14] MEDS: methylPREDNISolone 40MG 1ML VIAL IV SCH ×3 (02:00→13:00)
[2023-01-14] MEDS: IPRATROPIUM 0.5MG/ALBUTEROL 2.5MG INH SOL UD 3ML (DUONEB) NEB SCH ×3 (04:14→11:18)
[2023-01-14] MEDS: SODIUM CHLORIDE HYPERTONIC 3% 15ML NEB SOL INH SCH ×3 (04:14→11:19)
[2023-01-14] MEDS ORDERED: MAALOX 30 ML SUSP *UDC PO PRN (05:20)
[2023-01-14] MEDS: ACETAMINOPHEN TAB 650MG DOSE (2X325MG) PO PRN (05:47)
[2023-01-14 06:00] VITALS: BP 145/92
[2023-01-14 06:01] LABS: BASO # 0.1 10^3/uL (0.0-0.2); BASO % 0.6 % (0.0-1.0); HEMATOCRIT 44.4 % (42.0-52.0); HEMOGLOBIN 14.6 g/dl (13.5-17.5); LYMPH # 1.5 10^3/uL (1.5-5.0); LYMPH % 6.2 % (24.0-44.0); MEAN CORPUSCULAR HEMOGLOBIN 28.2 pg (27.0-33.0); MEAN CORPUSCULAR HGB CONC 32.9 g/dl (32.0-36.5); MEAN CORPUSCULAR VOLUME 85.9 fl (80.0-96.0); MONO # 1.3 10^3/uL (0.0-0.8); MONO % 5.4 % (2.0-8.0); NEUTROPHILS # 19.9 10^3/uL (1.5-8.5); NEUTROPHILS % 82.8 % (36.0-66.0); PLATELET COUNT, AUTOMATED 224 10^3/uL (150-450); RED BLOOD COUNT 5.17 10^6/uL (4.30-6.10)
[2023-01-14 06:28] LABS: BLOOD UREA NITROGEN 26 MG/DL (9-23); CALCIUM LEVEL 8.4 MG/DL (8.5-10.1); CARBON DIOXIDE LEVEL 26 MMOL/L (20-31); CHLORIDE LEVEL 102 MMOL/L (98-107); CREATININE FOR GFR 0.63 MG/DL (0.70-1.30); GLOMERULAR FILTRATION RATE > 60.0 (>56); GLUCOSE, FASTING 168 MG/DL (60-100); MAGNESIUM LEVEL 2.1 MG/DL (1.8-2.4); POTASSIUM SERUM 4.1 MMOL/L (3.5-5.1); SODIUM LEVEL 138 MMOL/L (136-145)
[2023-01-14] MEDS: BUDESONIDE 180MCG INHALER (PULMICORT FLEXHALER) INH SCH (07:39)
[2023-01-14] MEDS: ENOXAPARIN 40MG/0.4ML SYRINGE (J1650 PER 10MG) SC SCH (08:32)
[2023-01-14] MEDS: TOPIRAMATE (TopAMAX) 25 MG TAB PO SCH (08:34)
[2023-01-14] MEDS: PANTOPRAZOLE 40MG TAB (PROTONIX) PO SCH (08:34)
[2023-01-14] MEDS: ASPIRIN 81MG ENTERIC TABLET PO SCH (08:34)
[2023-01-14] MEDS: MONTELUKAST 10 MG TAB PO SCH (08:34)
[2023-01-14] MEDS: GABAPENTIN 300 MG CAP PO SCH (08:34)
[2023-01-14] MEDS: CLOPIDOGREL 75 MG TAB PO SCH (08:37)
[2023-01-14] MEDS: amLODIPine 5 MG TAB PO SCH (08:37)
[2023-01-14] MEDS: MULTIVITAMINS/MINERALS THERAP 1 TAB PO SCH (08:37)
[2023-01-14] MEDS: guaiFENesin ER 600 MG TAB PO SCH (08:37)
[2023-01-14] MEDS: ATORVASTATIN 20 MG TAB PO SCH (08:37)
[2023-01-14] MEDS: FOLIC ACID 1MG TAB PO SCH (08:37)
[2023-01-14 08:38] VITALS: BP 142/92
[2023-01-14] MEDS: FLUTICASONE PROP 0.05% NASAL SPRAY 16 GM (FLONASE) SCH (08:38)
[2023-01-14] MEDS: PROPRANOLOL 10 MG TAB PO SCH (08:38)
[2023-01-14] MEDS ORDERED: TOPA1TAB PO (08:59)
[2023-01-14] MEDS ORDERED: PRED20TA PO (08:59)
[2023-01-14] MEDS ORDERED: IPRA0.00 NEB (08:59)
[2023-01-14] MEDS ORDERED: ADV100INH INH (08:59)
[2023-01-14] MEDS ORDERED: AZIT500T5 PO (08:59)
[2023-01-14] MEDS ORDERED: QUET1TAB17 PO (08:59)
[2023-01-14] MEDS ORDERED: AMLO1TAB25 PO (09:02)
[2023-01-14] MEDS ORDERED: SERO1TAB PO (09:11)
== END 2023-01-14 14:30 | disposition home or self-care (01) | DRG 199 ==
LOC: EDBD 20:33 → M ED 20:33 → M ED INP 01-08 03:12 → M ICU 01-08 04:05 → M PCU 01-09 23:02 → M MSPAV 01-13 21:43
PROVIDERS: ADMIT Family Medicine; ATTEND Internal Medicine
DX: I16.0 Hypertensive urgency (principal); J44.1 Chronic obstructive pulmonary disease with (acute) exacerbation; K76.0 Fatty (change of) liver, not elsewhere classified; E83.42 Hypomagnesemia; E78.5 Hyperlipidemia, unspecified; F31.9 Bipolar disorder, unspecified; F41.9 Anxiety disorder, unspecified; R74.01 Elevation of levels of liver transaminase levels; G43.909 Migraine, unspecified, not intractable, without status migrainosus; F19.11 Other psychoactive substance abuse, in remission; H72.91 Unspecified perforation of tympanic membrane, right ear; D72.829 Elevated white blood cell count, unspecified; F10.21 Alcohol dependence, in remission; F43.21 Adjustment disorder with depressed mood; F17.210 Nicotine dependence, cigarettes, uncomplicated; B19.20 Unspecified viral hepatitis C without hepatic coma; K21.9 Gastro-esophageal reflux disease without esophagitis; Z91.51 Personal history of suicidal behavior; Z86.73 Personal history of transient ischemic attack (TIA), and cerebral infarction without residual deficits; Z79.02 Long term (current) use of antithrombotics/antiplatelets; Z79.82 Long term (current) use of aspirin; Z79.899 Other long term (current) drug therapy; Z88.5 Allergy status to narcotic agent; Z88.8 Allergy status to other drugs, medicaments and biological substances; Z56.0 Unemployment, unspecified; Z59.00 Homelessness unspecified; I10 Essential (primary) hypertension

== ENCOUNTER → 2023-02-18 | Outpatient (CLI) | payer OTHER ==
[~2023-02-18] MED LIST changes: +ADV100INH INH; +ALBU8.5H INH; +AZIT500T5 PO; +GABA-282 PO; +IPRA0.00 NEB; +ONDA-195 PO; +PRED20TA PO; +QUET1TAB17 PO; +SERO1TAB PO; +TOPA1TAB PO
[2023-02-18 13:53] LABS: ALBUMIN 3.9 G/DL (3.2-5.2); ALKALINE PHOSPHATASE 123 U/L (46-116); ALT/SGPT 374 U/L (7.0-40); AST/SGOT 167 U/L (<34); BILIRUBIN,TOTAL 0.4 MG/DL (0.3-1.2); BLOOD UREA NITROGEN 11 MG/DL (9-23); CALCIUM LEVEL 8.8 MG/DL (8.5-10.1); CARBON DIOXIDE LEVEL 29 MMOL/L (20-31); CHLORIDE LEVEL 106 MMOL/L (98-107); CREATININE FOR GFR 0.77 MG/DL (0.70-1.30); GLOMERULAR FILTRATION RATE > 60.0 (>56); GLUCOSE, FASTING 93 MG/DL (60-100); POTASSIUM SERUM 4.5 MMOL/L (3.5-5.1); SODIUM LEVEL 137 MMOL/L (136-145); TOTAL PROTEIN 7.4 G/DL (5.7-8.2)
[2023-02-18 13:56] LABS: HEMATOCRIT 46.9 % (42.0-52.0); HEMOGLOBIN 15.6 g/dl (13.5-17.5); HEPATITIS B SURFACE ANTIBODY POSITIVE (POSITIVE); MEAN CORPUSCULAR HEMOGLOBIN 28.6 pg (27.0-33.0); MEAN CORPUSCULAR HGB CONC 33.3 g/dl (32.0-36.5); MEAN CORPUSCULAR VOLUME 86.1 fl (80.0-96.0); PLATELET COUNT, AUTOMATED 226 10^3/uL (150-450); RED BLOOD COUNT 5.45 10^6/uL (4.30-6.10)
[2023-02-18 14:08] LABS: HEPATITIS B SURFACE ANTIGEN NEGATIVE (NEGATIVE)
[2023-02-18 14:21] LABS: HIV 1&2 SCREEN CENTAUR NEGATIVE (NEGATIVE)
== END ==
LOC: M PLALAB 10:01
PROVIDERS: ATTEND Family Medicine
DX: B18.2 Chronic viral hepatitis C (principal)

== ENCOUNTER 2023-03-14 11:38 | Observation (INO) | payer MEDICAID, OTHER ==
[~2023-03-14] VITALS: Ht 180.3 cm; Wt 91.2 kg
[~2023-03-14 11:38] MED LIST changes: -FLON1SPR; +FLON1SPR NARES
[2023-03-14 12:33] LABS: VENOUS BASE EXCESS -3.1 (-2.0-2.0); VENOUS HCO3 19.9 MMOL/L (23.0-27.0); VENOUS O2 SATURATION 98.9 % (60.0-80.0); VENOUS PARTIAL PRESSURE CO2 31.1 mmHg (38.0-50.0); VENOUS PARTIAL PRESSURE O2 138.6 mmHg (30.0-50.0); VENOUS PH 7.425 UNITS (7.330-7.430); VENOUS TOTAL CO2 20.9 MMOL/L (24.0-28.0)
[2023-03-14 12:40] LABS: BASO # 0.1 10^3/uL (0.0-0.2); BASO % 0.6 % (0.0-1.0); EOS # 0.5 10^3/uL (0.0-0.5); EOS % 5.9 % (0.0-3.0); HEMATOCRIT 45.9 % (42.0-52.0); HEMOGLOBIN 15.9 g/dl (13.5-17.5); LYMPH # 2.7 10^3/uL (1.5-5.0); LYMPH % 30.3 % (24.0-44.0); MEAN CORPUSCULAR HGB CONC 34.6 g/dl (32.0-36.5); MEAN CORPUSCULAR VOLUME 83.6 fl (80.0-96.0); MONO # 0.7 10^3/uL (0.0-0.8); MONO % 8.1 % (2.0-8.0); NEUTROPHILS # 4.8 10^3/uL (1.5-8.5); NEUTROPHILS % 54.8 % (36.0-66.0); PLATELET COUNT, AUTOMATED 273 10^3/uL (150-450); RED BLOOD COUNT 5.49 10^6/uL (4.30-6.10); WHITE BLOOD COUNT 8.8 10^3/uL (4.0-10.0)
[2023-03-14 13:05] LABS: OSMOLALITY SERUM 285 MOSM/KG (275-295)
[2023-03-14 13:07] LABS: ETHYL ALCOHOL (ETHANOL) 0.005 % (0.000-0.010)
[2023-03-14 13:08] LABS: ACETAMINOPHEN LEVEL < 2.0 UG/ML (10.0-20.0)
[2023-03-14 13:09] LABS: ALBUMIN 3.6 G/DL (3.2-5.2); ALKALINE PHOSPHATASE 113 U/L (46-116); ALT/SGPT 45 U/L (7.0-40); AST/SGOT 24 U/L (<34); BILIRUBIN,DIRECT 0.1 MG/DL (<0.4); BILIRUBIN,TOTAL 0.3 MG/DL (0.3-1.2); BLOOD UREA NITROGEN 10 MG/DL (9-23); CALCIUM LEVEL 9.1 MG/DL (8.5-10.1); CARBON DIOXIDE LEVEL 24 MMOL/L (20-31); CHLORIDE LEVEL 106 MMOL/L (98-107); CREATININE FOR GFR 0.66 MG/DL (0.70-1.30); GLOMERULAR FILTRATION RATE > 60.0 (>56); GLUCOSE, FASTING 89 MG/DL (60-100); SALICYLATE LEVEL < 3.0 MG/DL (<30); SODIUM LEVEL 138 MMOL/L (136-145); TOTAL PROTEIN 7.5 G/DL (5.7-8.2)
[2023-03-14 13:10] LABS: THYROID STIMULATING HORMONE 0.809 uIU/ML (0.55-4.78)
[2023-03-14] MEDS ORDERED: KETOROLAC 30 MG/ML 1ML VIAL IV ONE (13:10)
[2023-03-14] MEDS ORDERED: ISOVUE-370 76% 100ML VIAL As Ordered ONE (13:13)
[2023-03-14 14:26] LABS: MAGNESIUM LEVEL 1.9 MG/DL (1.8-2.4)
[2023-03-14 14:51] LABS: RSV AMPLIFICATION NEGATIVE (NEGATIVE)
[2023-03-14] MEDS ORDERED: TOPI25TA10 PO (15:24)
[2023-03-14] MEDS ORDERED: GUAI600T12 PO (15:24)
[2023-03-14] MEDS ORDERED: SERO1TAB PO (15:24)
[2023-03-14] MEDS ORDERED: AMLO1TAB25 PO (15:24)
[2023-03-14] MEDS ORDERED: GABA600T4 PO (15:24)
[2023-03-14] MEDS ORDERED: FLUT1BLS4 INH (15:24)
[2023-03-14] MEDS ORDERED: HOME MED LIST COMPLETE! XX SCH (15:25)
[2023-03-14] MEDS ORDERED: ONDANSETRON 4MG TAB PO PRN (15:40)
[2023-03-14] MEDS ORDERED: IPRATROPIUM 0.5MG/ALBUTEROL 2.5MG INH SOL UD 3ML (DUONEB) NEB PRN (15:40)
[2023-03-14] MEDS ORDERED: ALBUTEROL 90 MCG/ACT 8GM HFA INHALER INH PRN (15:40)
[2023-03-14] MEDS ORDERED: guaiFENesin ER 600 MG TAB PO PRN (15:40)
[2023-03-14 16:27] LABS: AMPHETAMINES LEVEL URINE NEGATIVE (NEGATIVE); BARBITURATES URINE NEGATIVE (NEGATIVE); BENZODIAZEPINES URINE NEGATIVE (NEGATIVE); CANNABINOIDS URINE NEGATIVE (NEGATIVE); COCAINE METABOLITE URINE NEGATIVE (NEGATIVE); METHADONE URINE NEGATIVE (NEGATIVE); OPIATES URINE NEGATIVE (NEGATIVE); PHENCYCLIDINE URINE NEGATIVE (NEGATIVE)
[2023-03-14] MEDS ORDERED: KETOROLAC TROMETHAMINE 10 MG TAB PO PRN (16:30)
[2023-03-14] MEDS ORDERED: LACTULOSE 20GM/30ML SYRUP UDC PO ONE (17:00)
[2023-03-14] MEDS: GABAPENTIN 300 MG CAP PO SCH ×2 (17:50→20:50)
[2023-03-14 18:32] LABS: CHOLESTEROL LEVEL 151 MG/DL (<200); CHOLESTEROL RISK RATIO 5.69 (<5); HDL CHOLESTEROL 26.5 MG/DL (>40); LDL CHOLESTEROL 81.7 MG/DL (<100); NON-HDL-C 124.5 MG/DL; TRIGLYCERIDES LEVEL 214 MG/DL (<150)
[2023-03-14 18:40] LABS: HEMOGLOBIN A1c 5.9 % (4.0-6.0)
[2023-03-14 20:26] VITALS: BP 112/72
[2023-03-14 20:28] VITALS: BP 112/72
[2023-03-14] MEDS: AMITRIPTYLINE 25MG TABLET PO SCH (20:49)
[2023-03-14] MEDS: THIAMINE 100 MG TAB PO SCH (20:49)
[2023-03-14] MEDS: QUEtiapine FUMARATE 100 MG TAB PO SCH (20:49)
[2023-03-14] MEDS: ACETAMINOPHEN TAB 650MG DOSE (2X325MG) PO PRN (20:50)
[2023-03-15] VITALS (9 sets, daily range): BP systolic 118–124; BP diastolic 68–87
[2023-03-15] MEDS: ACETAMINOPHEN TAB 650MG DOSE (2X325MG) PO PRN ×3 (05:18→16:18)
[2023-03-15 06:37] LABS: HEMATOCRIT 42.2 % (42.0-52.0); HEMOGLOBIN 14.2 g/dl (13.5-17.5); MEAN CORPUSCULAR HEMOGLOBIN 28.9 pg (27.0-33.0); MEAN CORPUSCULAR HGB CONC 33.6 g/dl (32.0-36.5); MEAN CORPUSCULAR VOLUME 85.8 fl (80.0-96.0); PLATELET COUNT, AUTOMATED 233 10^3/uL (150-450); RED BLOOD COUNT 4.92 10^6/uL (4.30-6.10)
[2023-03-15 06:47] LABS: ALBUMIN 3.2 G/DL (3.2-5.2); ALKALINE PHOSPHATASE 96 U/L (46-116); ALT/SGPT 39 U/L (7.0-40); AST/SGOT 24 U/L (<34); BILIRUBIN,TOTAL 0.2 MG/DL (0.3-1.2); BLOOD UREA NITROGEN 11 MG/DL (9-23); CALCIUM LEVEL 9.2 MG/DL (8.5-10.1); CARBON DIOXIDE LEVEL 23 MMOL/L (20-31); CHLORIDE LEVEL 108 MMOL/L (98-107); CREATININE FOR GFR 0.65 MG/DL (0.70-1.30); GLOMERULAR FILTRATION RATE > 60.0 (>56); GLUCOSE, FASTING 142 MG/DL (60-100); POTASSIUM SERUM 3.6 MMOL/L (3.5-5.1); SODIUM LEVEL 140 MMOL/L (136-145); TOTAL PROTEIN 6.8 G/DL (5.7-8.2)
[2023-03-15] MEDS ORDERED: ASPIRIN 81MG ENTERIC TABLET PO SCH (09:00)
[2023-03-15] MEDS ORDERED: PANTOPRAZOLE 40MG TAB (PROTONIX) PO SCH (09:00)
[2023-03-15] MEDS ORDERED: TOPIRAMATE (TopAMAX) 25 MG TAB PO SCH (09:00)
[2023-03-15] MEDS ORDERED: MULTIVITAMINS/MINERALS THERAP 1 TAB PO SCH ×2 (09:00)
[2023-03-15] MEDS ORDERED: ATORVASTATIN 20 MG TAB PO SCH (09:00)
[2023-03-15] MEDS ORDERED: CLOPIDOGREL 75 MG TAB PO SCH (09:00)
[2023-03-15] MEDS ORDERED: FOLIC ACID 1MG TAB PO SCH ×2 (09:00)
[2023-03-15] MEDS ORDERED: FLUTICASONE PROP 0.05% NASAL SPRAY 16 GM (FLONASE) NARES SCH (09:00)
[2023-03-15] MEDS: THIAMINE 100 MG TAB PO SCH ×2 (09:57→20:10)
[2023-03-15] MEDS: GABAPENTIN 300 MG CAP PO SCH ×3 (09:57→20:10)
[2023-03-15] MEDS ORDERED: methylPREDNISolone 40MG 1ML VIAL IV ONE (11:00)
[2023-03-15] MEDS: LACTULOSE 20GM/30ML SYRUP UDC PO SCH ×3 (11:01→22:09)
[2023-03-15] MEDS ORDERED: IPRATROPIUM 0.5MG/ALBUTEROL 2.5MG INH SOL UD 3ML (DUONEB) NEB SCH ×2 (12:00→14:00)
[2023-03-15] MEDS ORDERED: ALBUTEROL SULFATE 2.5MG/0.5ML INH NEB SOLN INH SCH (12:00)
[2023-03-15] MEDS ORDERED: IPRATROPIUM 0.02% SOLN 0.5MG 2.5ML NEB INH SCH (12:00)
[2023-03-15] MEDS ORDERED: KETOROLAC TROMETHAMINE 10 MG TAB PO PRN (13:00)
[2023-03-15 13:15] LABS: HEPATITIS B SURFACE ANTIGEN NEGATIVE (NEGATIVE)
[2023-03-15 13:36] LABS: HEPATITIS B CORE ANTIBODY IGM NEGATIVE (NEGATIVE)
[2023-03-15 13:52] LABS: HEPATITIS C VIRUS ABY INDEX > 11.0 INDEX (<0.8)
[2023-03-15] MEDS: IPRATROPIUM 0.02% SOLN 0.5MG 2.5ML NEB INH SCH ×3 (14:00→23:59)
[2023-03-15] MEDS: HEPARIN SOD (PORCINE) 5000UNITS/ML 1ML VIAL/SYRINGE SQ SCH ×2 (14:41→22:00)
[2023-03-15] MEDS: ALBUTEROL SULFATE 2.5MG/0.5ML INH NEB SOLN INH SCH ×3 (14:51→23:59)
[2023-03-15] MEDS: LORazepam 2 MG TAB PO PRN (20:10)
[2023-03-15] MEDS: AMITRIPTYLINE 25MG TABLET PO SCH (20:10)
[2023-03-15] MEDS ORDERED: OXAZEPAM 15MG CAP PO SCH (22:00)
[2023-03-15] MEDS: QUEtiapine FUMARATE 100 MG TAB PO SCH (22:09)
[2023-03-16 00:05] VITALS: BP 122/84
[2023-03-16] MEDS ORDERED: OXAZEPAM 15MG CAP PO ONE (00:10)
[2023-03-16] MEDS: LORazepam 2 MG TAB PO PRN ×2 (00:16→02:16)
[2023-03-16] MEDS: ACETAMINOPHEN TAB 650MG DOSE (2X325MG) PO PRN (00:17)
[2023-03-16 02:01] VITALS: BP 127/85
[2023-03-16] MEDS ORDERED: FIORICET TAB PO ONE (02:10)
[2023-03-16] MEDS: HEPARIN SOD (PORCINE) 5000UNITS/ML 1ML VIAL/SYRINGE SQ SCH (05:27)
[2023-03-16] MEDS: LACTULOSE 20GM/30ML SYRUP UDC PO SCH (05:32)
[2023-03-16 05:34] VITALS: BP 126/87
[2023-03-16 05:39] VITALS: BP 126/87
[2023-03-16] MEDS ORDERED: OXAZEPAM 15MG CAP PO SCH (06:00)
[2023-03-18] MEDS ORDERED: THIAMINE 100 MG TAB PO SCH (09:00)
== END 2023-03-16 07:15 | disposition left against medical advice (07) ==
LOC: M ED 11:38 → M MSPAV 15:36
PROVIDERS: ADMIT Family Medicine; ATTEND Family Medicine
DX: R53.1 Weakness (principal); R79.89 Other specified abnormal findings of blood chemistry; J44.9 Chronic obstructive pulmonary disease, unspecified; I69.354 Hemiplegia and hemiparesis following cerebral infarction affecting left non-dominant side; M25.512 Pain in left shoulder; R07.9 Chest pain, unspecified; Z91.81 History of falling; I10 Essential (primary) hypertension; F10.10 Alcohol abuse, uncomplicated; F19.10 Other psychoactive substance abuse, uncomplicated; R91.8 Other nonspecific abnormal finding of lung field; I65.01 Occlusion and stenosis of right vertebral artery; E78.5 Hyperlipidemia, unspecified; K21.9 Gastro-esophageal reflux disease without esophagitis; M54.9 Dorsalgia, unspecified; G89.29 Other chronic pain; F31.9 Bipolar disorder, unspecified; F17.200 Nicotine dependence, unspecified, uncomplicated; Z88.5 Allergy status to narcotic agent; Z88.8 Allergy status to other drugs, medicaments and biological substances; Z79.899 Other long term (current) drug therapy; Z79.82 Long term (current) use of aspirin; Z79.02 Long term (current) use of antithrombotics/antiplatelets; Z79.51 Long term (current) use of inhaled steroids
CPT/HCPCS: 36415; 70450; 70544; 70551; 71045; 71275; 73030; 76705; 80048; 80053; 80061; 80076; 80143; 80307; 81001; 82077; 82140; 82803; 83036; 83605; 83735; 83930; 84443; 85025; 85027; 86705; 86709; 86803; 87040; 87340; 87522; 87631; 93005; 93041; 93880; 94640; 94760; 96372; 96374; 96375; 99285; J1885; J2920; Q9967

== ENCOUNTER 2023-05-04 06:04 | Inpatient (IN) | payer OTHER ==
[~2023-05-04] VITALS: Ht 170.2 cm; Wt 92.3 kg
[~2023-05-04 06:04] MED LIST changes: +FLUT1BLS4 INH; +GABA600T4 PO; +GUAI600T12 PO; +TOPI25TA10 PO
[2023-05-04] MEDS: CLOPIDOGREL 75 MG TAB PO SCH (09:00)
[2023-05-04] MEDS: THIAMINE 100 MG TAB PO SCH ×2 (09:00→21:00)
[2023-05-04] MEDS: FOLIC ACID 1MG TAB PO SCH (09:00)
[2023-05-04] MEDS: MULTIVITAMINS/MINERALS THERAP 1 TAB PO SCH (09:00)
[2023-05-04] MEDS: TOPIRAMATE (TopAMAX) 25 MG TAB PO SCH (09:00)
[2023-05-04] MEDS: ATORVASTATIN 20 MG TAB PO SCH (09:00)
[2023-05-04] MEDS: PANTOPRAZOLE 40MG TAB (PROTONIX) PO SCH (09:00)
[2023-05-04] MEDS: ASPIRIN 81MG ENTERIC TABLET PO SCH (09:00)
[2023-05-04 09:53] LABS: BASO % 0.3 % (0.0-1.0); EOS # 0.2 10^3/uL (0.0-0.5); EOS % 1.7 % (0.0-3.0); HEMATOCRIT 41.5 % (42.0-52.0); HEMOGLOBIN 13.4 g/dl (13.5-17.5); LYMPH # 1.6 10^3/uL (1.5-5.0); MEAN CORPUSCULAR HEMOGLOBIN 27.5 pg (27.0-33.0); MEAN CORPUSCULAR HGB CONC 32.3 g/dl (32.0-36.5); MEAN CORPUSCULAR VOLUME 85.2 fl (80.0-96.0); MONO # 0.8 10^3/uL (0.0-0.8); MONO % 6.4 % (2.0-8.0); NEUTROPHILS % 77.2 % (36.0-66.0); PLATELET COUNT, AUTOMATED 350 10^3/uL (150-450); RED BLOOD COUNT 4.87 10^6/uL (4.30-6.10); WHITE BLOOD COUNT 11.7 10^3/uL (4.0-10.0)
[2023-05-04 10:09] LABS: ERYTHROCYTE SEDIMENTATION RATE 96 mm/hr (0-20)
[2023-05-04] MEDS ORDERED: NS 2,770 ML in IV 1 EA IV ONE (10:10)
[2023-05-04] MEDS ORDERED: ONDANSETRON 4MG 2ML VIAL IV ONE (10:10)
[2023-05-04] MEDS ORDERED: VANCOMYCIN HCL 2,000 MG in D5W 500 ML IV ONE (10:10)
[2023-05-04] MEDS ORDERED: fentaNYL 100 MCG/2 ML INJECTION IV ONE (10:10)
[2023-05-04 10:15] LABS: LIPASE 28 U/L (12-53)
[2023-05-04 10:17] LABS: ALBUMIN 2.9 G/DL (3.2-5.2); ALKALINE PHOSPHATASE 133 U/L (46-116); ALT/SGPT 40 U/L (7.0-40); AST/SGOT 48 U/L (<34); BILIRUBIN,DIRECT 0.1 MG/DL (<0.4); BILIRUBIN,TOTAL 0.2 MG/DL (0.3-1.2); BLOOD UREA NITROGEN 6 MG/DL (9-23); CALCIUM LEVEL 8.9 MG/DL (8.5-10.1); CARBON DIOXIDE LEVEL 26 MMOL/L (20-31); CHLORIDE LEVEL 102 MMOL/L (98-107); CREATININE FOR GFR 0.72 MG/DL (0.70-1.30); GLOMERULAR FILTRATION RATE > 60.0 (>56); GLUCOSE, FASTING 93 MG/DL (60-100); SODIUM LEVEL 136 MMOL/L (136-145)
[2023-05-04] MEDS ORDERED: VANCOMYCIN HCL 1,000 MG, VIAL MATE ADAPTER 1 EACH in D5W 250 ML IV ONE ×2 (10:20→11:20)
[2023-05-04] MEDS ORDERED: IPRA0.00 INH (12:24)
[2023-05-04] MEDS ORDERED: HOME MED LIST COMPLETE! XX SCH (12:25)
[2023-05-04] MEDS ORDERED: LORazepam 2 MG TAB PO PRN (12:45)
[2023-05-04] MEDS ORDERED: guaiFENesin ER 600 MG TAB PO PRN (12:45)
[2023-05-04] MEDS ORDERED: ACETAMINOPHEN TAB 650MG DOSE (2X325MG) PO PRN (12:45)
[2023-05-04] MEDS ORDERED: IPRATROPIUM 0.5MG/ALBUTEROL 2.5MG INH SOL UD 3ML (DUONEB) INH PRN (12:45)
[2023-05-04] MEDS ORDERED: ALBUTEROL 90 MCG/ACT 8GM HFA INHALER INH PRN (12:45)
[2023-05-04] MEDS: PIPERACILLIN/TAZOBACTAM SOD 3.375 GM in D5W MINI-BAG PLUS 50 ML IV SCH ×2 (14:38→20:00)
[2023-05-04 14:42] LABS: RSV AMPLIFICATION NEGATIVE (NEGATIVE)
[2023-05-04] MEDS ORDERED: KETOROLAC 30 MG/ML 1ML VIAL IV ONE (15:15)
[2023-05-04] MEDS: GABAPENTIN 300 MG CAP PO SCH ×2 (16:00→21:00)
[2023-05-04] MEDS: ADVAIR HFA 115/21MCG INHALER INH SCH (18:57)
[2023-05-04 19:20] VITALS: BP 141/92; TEMP 97.9; O2SAT 98
[2023-05-04 19:30] VITALS: BP 141/92
[2023-05-04] MEDS: VANCOMYCIN HCL 1,000 MG, VIAL MATE ADAPTER 1 EACH in D5W 250 ML IV SCH (20:00)
[2023-05-04] MEDS: QUEtiapine FUMARATE 100 MG TAB PO SCH (21:00)
[2023-05-04] MEDS: AMITRIPTYLINE 25MG TABLET PO SCH (21:00)
[2023-05-05] MEDS: PIPERACILLIN/TAZOBACTAM SOD 3.375 GM in D5W MINI-BAG PLUS 50 ML IV SCH ×4 (02:00→21:28)
[2023-05-05] MEDS: VANCOMYCIN HCL 1,000 MG, VIAL MATE ADAPTER 1 EACH in D5W 250 ML IV SCH ×3 (04:00→21:28)
[2023-05-05 06:00] VITALS: BP_SYST 136; BP_SYST 139; BP_DIAS 91; TEMP 97.5; O2SAT 97
[2023-05-05 06:11] LABS: HEMATOCRIT 39.3 % (42.0-52.0); HEMOGLOBIN 12.6 g/dl (13.5-17.5); MEAN CORPUSCULAR HEMOGLOBIN 27.8 pg (27.0-33.0); MEAN CORPUSCULAR HGB CONC 32.1 g/dl (32.0-36.5); MEAN CORPUSCULAR VOLUME 86.6 fl (80.0-96.0); PLATELET COUNT, AUTOMATED 286 10^3/uL (150-450); RED BLOOD COUNT 4.54 10^6/uL (4.30-6.10); WHITE BLOOD COUNT 6.7 10^3/uL (4.0-10.0)
[2023-05-05 06:43] LABS: ALBUMIN 2.4 G/DL (3.2-5.2); ALKALINE PHOSPHATASE 110 U/L (46-116); ALT/SGPT 36 U/L (7.0-40); AST/SGOT 40 U/L (<34); BILIRUBIN,TOTAL < 0.2 MG/DL (0.3-1.2); BLOOD UREA NITROGEN 7 MG/DL (9-23); CALCIUM LEVEL 8.1 MG/DL (8.5-10.1); CARBON DIOXIDE LEVEL 28 MMOL/L (20-31); CHLORIDE LEVEL 105 MMOL/L (98-107); CREATININE FOR GFR 0.65 MG/DL (0.70-1.30); GLOMERULAR FILTRATION RATE > 60.0 (>56); GLUCOSE, FASTING 130 MG/DL (60-100); POTASSIUM SERUM 4.1 MMOL/L (3.5-5.1); SODIUM LEVEL 139 MMOL/L (136-145); TOTAL PROTEIN 6.9 G/DL (5.7-8.2)
[2023-05-05] MEDS: ADVAIR HFA 115/21MCG INHALER INH SCH ×2 (07:20→19:06)
[2023-05-05 09:00] VITALS: BP 144/88
[2023-05-05] MEDS: ENOXAPARIN 40MG/0.4ML SYRINGE (J1650 PER 10MG) SC SCH (09:00)
[2023-05-05] MEDS: MORPHINE 2 MG/ML 1ML VIAL IV PRN ×3 (09:14→21:28)
[2023-05-05] MEDS: KETOROLAC 30 MG/ML 1ML VIAL IV PRN ×3 (09:14→21:28)
[2023-05-05] MEDS: ATORVASTATIN 20 MG TAB PO SCH (09:19)
[2023-05-05] MEDS: TOPIRAMATE (TopAMAX) 25 MG TAB PO SCH (09:19)
[2023-05-05] MEDS: MULTIVITAMINS/MINERALS THERAP 1 TAB PO SCH (09:19)
[2023-05-05] MEDS: GABAPENTIN 300 MG CAP PO SCH ×3 (09:19→21:27)
[2023-05-05] MEDS: PANTOPRAZOLE 40MG TAB (PROTONIX) PO SCH (09:19)
[2023-05-05] MEDS: THIAMINE 100 MG TAB PO SCH ×2 (09:20→21:27)
[2023-05-05] MEDS: CLOPIDOGREL 75 MG TAB PO SCH (09:20)
[2023-05-05] MEDS: ASPIRIN 81MG ENTERIC TABLET PO SCH (09:20)
[2023-05-05] MEDS: FOLIC ACID 1MG TAB PO SCH (09:22)
[2023-05-05] MEDS: FLUTICASONE PROP 0.05% NASAL SPRAY 16 GM (FLONASE) NARES SCH (09:32)
[2023-05-05 14:00] VITALS: BP_SYST 137; BP_SYST 144; BP_DIAS 88; BP_DIAS 90; TEMP 98.1; O2SAT 98
[2023-05-05] MEDS ORDERED: VANCOMYCIN HCL 500 MG in D5W MINI-BAG PLUS 100 ML IV ONE (16:00)
[2023-05-05] MEDS: ONDANSETRON 4MG TAB PO PRN (18:53)
[2023-05-05 21:25] VITALS: BP 135/77; TEMP 97.9; O2SAT 97
[2023-05-05] MEDS: AMITRIPTYLINE 25MG TABLET PO SCH (21:27)
[2023-05-05] MEDS: QUEtiapine FUMARATE 100 MG TAB PO SCH (21:27)
[2023-05-05 22:00] VITALS: BP 135/77
[2023-05-06] MEDS: PIPERACILLIN/TAZOBACTAM SOD 3.375 GM in D5W MINI-BAG PLUS 50 ML IV SCH ×4 (02:45→22:11)
[2023-05-06] MEDS: KETOROLAC 30 MG/ML 1ML VIAL IV PRN (03:53)
[2023-05-06] MEDS: VANCOMYCIN HCL 1,000 MG, VIAL MATE ADAPTER 1 EACH in D5W 250 ML IV SCH ×3 (03:53→20:08)
[2023-05-06] MEDS: MORPHINE 2 MG/ML 1ML VIAL IV PRN (03:54)
[2023-05-06 05:55] VITALS: BP 122/78; TEMP 97.9; O2SAT 97
[2023-05-06 06:00] VITALS: BP 122/78
[2023-05-06 06:10] LABS: HEMATOCRIT 38.4 % (42.0-52.0); HEMOGLOBIN 12.1 g/dl (13.5-17.5); MEAN CORPUSCULAR HEMOGLOBIN 27.7 pg (27.0-33.0); MEAN CORPUSCULAR HGB CONC 31.5 g/dl (32.0-36.5); MEAN CORPUSCULAR VOLUME 87.9 fl (80.0-96.0); PLATELET COUNT, AUTOMATED 300 10^3/uL (150-450); RED BLOOD COUNT 4.37 10^6/uL (4.30-6.10); WHITE BLOOD COUNT 5.8 10^3/uL (4.0-10.0)
[2023-05-06 06:34] LABS: ALBUMIN 2.4 G/DL (3.2-5.2); ALKALINE PHOSPHATASE 102 U/L (46-116); ALT/SGPT 40 U/L (7.0-40); AST/SGOT 47 U/L (<34); BILIRUBIN,TOTAL < 0.2 MG/DL (0.3-1.2); BLOOD UREA NITROGEN 8 MG/DL (9-23); CALCIUM LEVEL 8.1 MG/DL (8.5-10.1); CARBON DIOXIDE LEVEL 25 MMOL/L (20-31); CHLORIDE LEVEL 108 MMOL/L (98-107); CREATININE FOR GFR 0.75 MG/DL (0.70-1.30); GLOMERULAR FILTRATION RATE > 60.0 (>56); GLUCOSE, FASTING 160 MG/DL (60-100); POTASSIUM SERUM 4.1 MMOL/L (3.5-5.1); SODIUM LEVEL 140 MMOL/L (136-145); TOTAL PROTEIN 7.1 G/DL (5.7-8.2)
[2023-05-06] MEDS: ADVAIR HFA 115/21MCG INHALER INH SCH ×2 (07:30→20:51)
[2023-05-06] MEDS: ATORVASTATIN 20 MG TAB PO SCH (09:47)
[2023-05-06] MEDS: GABAPENTIN 300 MG CAP PO SCH ×2 (09:47→17:12)
[2023-05-06] MEDS: MULTIVITAMINS/MINERALS THERAP 1 TAB PO SCH (09:47)
[2023-05-06] MEDS: ASPIRIN 81MG ENTERIC TABLET PO SCH (09:47)
[2023-05-06] MEDS: CLOPIDOGREL 75 MG TAB PO SCH (09:48)
[2023-05-06] MEDS: TOPIRAMATE (TopAMAX) 25 MG TAB PO SCH (09:48)
[2023-05-06] MEDS: THIAMINE 100 MG TAB PO SCH ×2 (09:48→20:08)
[2023-05-06] MEDS: FOLIC ACID 1MG TAB PO SCH (09:49)
[2023-05-06] MEDS: ENOXAPARIN 40MG/0.4ML SYRINGE (J1650 PER 10MG) SC SCH ×2 (09:49→09:53)
[2023-05-06] MEDS: PANTOPRAZOLE 40MG TAB (PROTONIX) PO SCH (09:49)
[2023-05-06] MEDS: FLUTICASONE PROP 0.05% NASAL SPRAY 16 GM (FLONASE) NARES SCH (09:49)
[2023-05-06] MEDS ORDERED: FOLI1TAB11 PO (12:41)
[2023-05-06] MEDS ORDERED: BACT800T5 PO (12:41)
[2023-05-06] MEDS ORDERED: THIA100TA PO (12:41)
[2023-05-06] MEDS ORDERED: VITMTA PO (12:41)
[2023-05-06] MEDS ORDERED: TRAM50TA2 PO (12:45)
[2023-05-06] MEDS ORDERED: ACET1TAB55 PO (12:45)
[2023-05-06 14:00] VITALS: BP 125/78; TEMP 98.1; O2SAT 97
[2023-05-06] MEDS: AMITRIPTYLINE 25MG TABLET PO SCH (20:08)
[2023-05-06] MEDS: QUEtiapine FUMARATE 100 MG TAB PO SCH (22:11)
[2023-05-06 23:00] VITALS: BP 116/76
[2023-05-06 23:28] VITALS: BP 116/76; TEMP 97.2; O2SAT 96
[2023-05-07] MEDS: PIPERACILLIN/TAZOBACTAM SOD 3.375 GM in D5W MINI-BAG PLUS 50 ML IV SCH (02:48)
[2023-05-07] MEDS: VANCOMYCIN HCL 1,000 MG, VIAL MATE ADAPTER 1 EACH in D5W 250 ML IV SCH (04:04)
[2023-05-07 06:13] LABS: HEMATOCRIT 40.6 % (42.0-52.0); HEMOGLOBIN 12.7 g/dl (13.5-17.5); MEAN CORPUSCULAR HEMOGLOBIN 27.3 pg (27.0-33.0); MEAN CORPUSCULAR HGB CONC 31.3 g/dl (32.0-36.5); MEAN CORPUSCULAR VOLUME 87.1 fl (80.0-96.0); PLATELET COUNT, AUTOMATED 307 10^3/uL (150-450); RED BLOOD COUNT 4.66 10^6/uL (4.30-6.10); WHITE BLOOD COUNT 8.1 10^3/uL (4.0-10.0)
[2023-05-07 06:24] VITALS: BP 121/83; TEMP 97.3; O2SAT 97
[2023-05-07 06:55] LABS: ALBUMIN 2.5 G/DL (3.2-5.2); ALKALINE PHOSPHATASE 99 U/L (46-116); ALT/SGPT 53 U/L (7.0-40); AST/SGOT 50 U/L (<34); BILIRUBIN,TOTAL 0.2 MG/DL (0.3-1.2); BLOOD UREA NITROGEN 8 MG/DL (9-23); CARBON DIOXIDE LEVEL 26 MMOL/L (20-31); CHLORIDE LEVEL 106 MMOL/L (98-107); GLOMERULAR FILTRATION RATE > 60.0 (>56); GLUCOSE, FASTING 150 MG/DL (60-100); POTASSIUM SERUM 3.9 MMOL/L (3.5-5.1); SODIUM LEVEL 138 MMOL/L (136-145); TOTAL PROTEIN 7.6 G/DL (5.7-8.2)
[2023-05-07] MEDS: ADVAIR HFA 115/21MCG INHALER INH SCH ×2 (07:25→19:50)
[2023-05-07] MEDS: ENOXAPARIN 40MG/0.4ML SYRINGE (J1650 PER 10MG) SC SCH (10:08)
[2023-05-07] MEDS: FLUTICASONE PROP 0.05% NASAL SPRAY 16 GM (FLONASE) NARES SCH (10:09)
[2023-05-07] MEDS: PANTOPRAZOLE 40MG TAB (PROTONIX) PO SCH (10:09)
[2023-05-07] MEDS: CLOPIDOGREL 75 MG TAB PO SCH (10:09)
[2023-05-07] MEDS: FOLIC ACID 1MG TAB PO SCH (10:10)
[2023-05-07] MEDS: ASPIRIN 81MG ENTERIC TABLET PO SCH (10:10)
[2023-05-07] MEDS: BACTRIM 160MG/800MG DS TAB PO SCH ×2 (10:10→20:39)
[2023-05-07] MEDS: TOPIRAMATE (TopAMAX) 25 MG TAB PO SCH (10:10)
[2023-05-07] MEDS: ATORVASTATIN 20 MG TAB PO SCH (10:10)
[2023-05-07] MEDS: MULTIVITAMINS/MINERALS THERAP 1 TAB PO SCH (10:10)
[2023-05-07 14:03] VITALS: BP 113/73
[2023-05-07 20:36] VITALS: BP 112/72; TEMP 98.1; O2SAT 95
[2023-05-07] MEDS: QUEtiapine FUMARATE 100 MG TAB PO SCH (20:39)
[2023-05-07] MEDS: AMITRIPTYLINE 25MG TABLET PO SCH (20:39)
[2023-05-07 22:46] VITALS: BP 112/72
[2023-05-08 05:59] VITALS: BP 120/84; TEMP 97.2; O2SAT 94
[2023-05-08 06:18] LABS: HEMOGLOBIN 13.8 g/dl (13.5-17.5); MEAN CORPUSCULAR HEMOGLOBIN 27.7 pg (27.0-33.0); MEAN CORPUSCULAR HGB CONC 32.1 g/dl (32.0-36.5); MEAN CORPUSCULAR VOLUME 86.3 fl (80.0-96.0); PLATELET COUNT, AUTOMATED 350 10^3/uL (150-450); RED BLOOD COUNT 4.98 10^6/uL (4.30-6.10); WHITE BLOOD COUNT 8.9 10^3/uL (4.0-10.0)
[2023-05-08 07:01] LABS: ALBUMIN 2.8 G/DL (3.2-5.2); ALKALINE PHOSPHATASE 104 U/L (46-116); ALT/SGPT 73 U/L (7.0-40); AST/SGOT 67 U/L (<34); BILIRUBIN,TOTAL < 0.2 MG/DL (0.3-1.2); BLOOD UREA NITROGEN 8 MG/DL (9-23); CALCIUM LEVEL 9.4 MG/DL (8.5-10.1); CARBON DIOXIDE LEVEL 23 MMOL/L (20-31); CHLORIDE LEVEL 107 MMOL/L (98-107); CREATININE FOR GFR 0.62 MG/DL (0.70-1.30); GLOMERULAR FILTRATION RATE > 60.0 (>56); GLUCOSE, FASTING 126 MG/DL (60-100); POTASSIUM SERUM 4.1 MMOL/L (3.5-5.1); SODIUM LEVEL 137 MMOL/L (136-145); TOTAL PROTEIN 8.4 G/DL (5.7-8.2)
[2023-05-08] MEDS: ADVAIR HFA 115/21MCG INHALER INH SCH ×2 (08:07→18:05)
[2023-05-08] MEDS: BACTRIM 160MG/800MG DS TAB PO SCH ×2 (08:48→21:21)
[2023-05-08] MEDS: ATORVASTATIN 20 MG TAB PO SCH (08:49)
[2023-05-08] MEDS: TOPIRAMATE (TopAMAX) 25 MG TAB PO SCH (08:49)
[2023-05-08] MEDS: CLOPIDOGREL 75 MG TAB PO SCH (08:50)
[2023-05-08] MEDS: MULTIVITAMINS/MINERALS THERAP 1 TAB PO SCH (08:50)
[2023-05-08] MEDS: PANTOPRAZOLE 40MG TAB (PROTONIX) PO SCH (08:50)
[2023-05-08] MEDS: ASPIRIN 81MG ENTERIC TABLET PO SCH (08:50)
[2023-05-08] MEDS: FOLIC ACID 1MG TAB PO SCH (08:50)
[2023-05-08] MEDS: ENOXAPARIN 40MG/0.4ML SYRINGE (J1650 PER 10MG) SC SCH (08:54)
[2023-05-08] MEDS: FLUTICASONE PROP 0.05% NASAL SPRAY 16 GM (FLONASE) NARES SCH (08:56)
[2023-05-08 18:11] VITALS: BP 120/84
[2023-05-08] MEDS: AMITRIPTYLINE 25MG TABLET PO SCH (21:21)
[2023-05-08] MEDS: QUEtiapine FUMARATE 100 MG TAB PO SCH (21:21)
[2023-05-08 21:22] VITALS: BP 118/83
[2023-05-09 06:25] VITALS: BP 117/83; TEMP 97.5; O2SAT 98
[2023-05-09 06:45] VITALS: BP 117/83
[2023-05-09] MEDS: ADVAIR HFA 115/21MCG INHALER INH SCH (07:21)
[2023-05-09] MEDS ORDERED: BACT800T5 PO (09:48)
[2023-05-09] MEDS: ASPIRIN 81MG ENTERIC TABLET PO SCH (09:55)
[2023-05-09] MEDS: CLOPIDOGREL 75 MG TAB PO SCH (09:55)
[2023-05-09] MEDS: MULTIVITAMINS/MINERALS THERAP 1 TAB PO SCH (09:55)
[2023-05-09] MEDS: PANTOPRAZOLE 40MG TAB (PROTONIX) PO SCH (09:55)
[2023-05-09] MEDS: BACTRIM 160MG/800MG DS TAB PO SCH (09:55)
[2023-05-09] MEDS: ENOXAPARIN 40MG/0.4ML SYRINGE (J1650 PER 10MG) SC SCH (09:55)
[2023-05-09 09:58] VITALS: BP 120/81
[2023-05-09] MEDS: ATORVASTATIN 20 MG TAB PO SCH (10:00)
[2023-05-09] MEDS: FLUTICASONE PROP 0.05% NASAL SPRAY 16 GM (FLONASE) NARES SCH (10:00)
[2023-05-09] MEDS: FOLIC ACID 1MG TAB PO SCH (10:00)
[2023-05-09] MEDS: ONDANSETRON 4MG TAB PO PRN (10:07)
[2023-05-09 11:42] VITALS: BP 119/81; TEMP 97.5; O2SAT 99
== END 2023-05-09 13:30 | disposition home or self-care (01) | DRG 383 ==
LOC: M ED 06:04 → M ED INP 06:05 → M MS5PR 19:20 → EEVIPCON 05-05 15:15 → OBSVTOIN 05-05 15:15
PROVIDERS: ADMIT Internal Medicine; ATTEND Family Medicine
DX: L03.115 Cellulitis of right lower limb (principal); L97.919 Non-pressure chronic ulcer of unspecified part of right lower leg with unspecified severity; I10 Essential (primary) hypertension; J44.9 Chronic obstructive pulmonary disease, unspecified; K21.9 Gastro-esophageal reflux disease without esophagitis; R26.89 Other abnormalities of gait and mobility; E78.5 Hyperlipidemia, unspecified; F31.9 Bipolar disorder, unspecified; F41.9 Anxiety disorder, unspecified; F17.200 Nicotine dependence, unspecified, uncomplicated; Z86.73 Personal history of transient ischemic attack (TIA), and cerebral infarction without residual deficits; Z79.82 Long term (current) use of aspirin; Z79.899 Other long term (current) drug therapy; Z88.5 Allergy status to narcotic agent; Z88.8 Allergy status to other drugs, medicaments and biological substances

== ENCOUNTER 2023-09-17 11:14 | Observation (INO) | payer MEDICAID, OTHER ==
[~2023-09-17] VITALS: Ht 170.2 cm; Wt 85.7 kg
[~2023-09-17 11:14] MED LIST changes: +ACET1TAB55 PO; -AMIT25TA17 PO; +AMIT25TA19 PO; +THIA100TA PO
[2023-09-17 11:57] LABS: BASO % 0.5 % (0.0-1.0); EOS # 0.3 10^3/uL (0.0-0.5); EOS % 3.1 % (0.0-3.0); HEMOGLOBIN 16.9 g/dl (13.5-17.5); LYMPH # 1.9 10^3/uL (1.5-5.0); LYMPH % 22.4 % (24.0-44.0); MEAN CORPUSCULAR HEMOGLOBIN 27.5 pg (27.0-33.0); MEAN CORPUSCULAR HGB CONC 32.5 g/dl (32.0-36.5); MEAN CORPUSCULAR VOLUME 84.6 fl (80.0-96.0); MONO # 0.7 10^3/uL (0.0-0.8); NEUTROPHILS # 5.5 10^3/uL (1.5-8.5); NEUTROPHILS % 65.8 % (36.0-66.0); PLATELET COUNT, AUTOMATED 254 10^3/uL (150-450); RED BLOOD COUNT 6.15 10^6/uL (4.30-6.10); WHITE BLOOD COUNT 8.4 10^3/uL (4.0-10.0)
[2023-09-17 12:23] VITALS: BP 138/86; TEMP 97.2; O2SAT 98
[2023-09-17 12:44] LABS: RSV AMPLIFICATION NEGATIVE (NEGATIVE)
[2023-09-17] MEDS ORDERED: ISOVUE-370 76% 100ML VIAL As Ordered ONE (13:38)
[2023-09-17 14:05] LABS: INR 1.02; PROTHROMBIN TIME 13.1 SECONDS (12.5-14.5)
[2023-09-17 14:06] LABS: PARTIAL THROMBOPLASTIN TIME 25.4 SECONDS (24.8-34.2)
[2023-09-17 14:11] LABS: BLOOD UREA NITROGEN 7 MG/DL (9-23); CALCIUM LEVEL 9.3 MG/DL (8.5-10.1); CARBON DIOXIDE LEVEL 27 MMOL/L (20-31); CHLORIDE LEVEL 102 MMOL/L (98-107); CK-MB VALUE MASS 1.6 NG/ML (<3.6); CREATININE FOR GFR 0.54 MG/DL (0.70-1.30); GLOMERULAR FILTRATION RATE > 60.0 (>56); GLUCOSE, FASTING 85 MG/DL (60-100); POTASSIUM SERUM 4.3 MMOL/L (3.5-5.1); SODIUM LEVEL 135 MMOL/L (136-145)
[2023-09-17 14:15] LABS: CPK CREATINE PHOSPHOKINASE 60 U/L (46-171); MB/CK RELATIVE INDEX 2.66 (< OR =4)
[2023-09-17] MEDS ORDERED: MED REC IN PROGRESS XX SCH (15:15)
[2023-09-17] MEDS ORDERED: IPRATROPIUM 0.5MG/ALBUTEROL 2.5MG INH SOL UD 3ML (DUONEB) NEB PRN (16:45)
[2023-09-17 17:15] LABS: ALKALINE PHOSPHATASE 102 U/L (46-116); ALT/SGPT 45 U/L (7.0-40); AST/SGOT 34 U/L (<34); BILIRUBIN,DIRECT < 0.1 MG/DL (<0.4); BILIRUBIN,TOTAL 0.2 MG/DL (0.3-1.2); TOTAL PROTEIN 8.7 G/DL (5.7-8.2)
[2023-09-17 17:18] LABS: HEPATITIS B SURFACE ANTIBODY POSITIVE (POSITIVE)
[2023-09-17 17:50] LABS: HEPATITIS B CORE ANTIBODY IGM NEGATIVE (NEGATIVE)
[2023-09-17 17:57] LABS: HEPATITIS C VIRUS ABY INDEX > 11.00 INDEX (<0.8)
[2023-09-17 18:35] VITALS: BP 122/77; TEMP 97.1; O2SAT 97
[2023-09-17] MEDS ORDERED: med rec comment (19:18)
[2023-09-17] MEDS ORDERED: HOME MED LIST COMPLETE! XX SCH (19:25)
[2023-09-17] MEDS: IPRATROPIUM 0.5MG/ALBUTEROL 2.5MG INH SOL UD 3ML (DUONEB) NEB SCH (19:36)
[2023-09-17] MEDS: GABAPENTIN 300 MG CAP PO SCH (19:45)
[2023-09-17] MEDS: QUEtiapine FUMARATE 100 MG TAB PO SCH (19:45)
[2023-09-17] MEDS: ADVAIR HFA 115/21MCG INHALER INH SCH (20:00)
[2023-09-17] MEDS ORDERED: ALBUTEROL 90 MCG/ACT 8GM HFA INHALER INH PRN (20:15)
[2023-09-17] MEDS ORDERED: ACETAMINOPHEN TAB 650MG DOSE (2X325MG) PO PRN (20:15)
[2023-09-17] MEDS: THIAMINE 100 MG TAB PO SCH (21:15)
[2023-09-17] MEDS: AMITRIPTYLINE 25MG TABLET PO SCH (21:15)
[2023-09-17 23:39] LABS: CK-MB VALUE MASS < 1.0 NG/ML (<3.6)
[2023-09-17 23:41] LABS: CPK CREATINE PHOSPHOKINASE 47 U/L (46-171); MB/CK RELATIVE INDEX 2.12 (< OR =4)
[2023-09-18 00:10] VITALS: BP 111/71; TEMP 96.9; O2SAT 84; O2SAT 94
[2023-09-18] MEDS: IPRATROPIUM 0.5MG/ALBUTEROL 2.5MG INH SOL UD 3ML (DUONEB) NEB SCH ×4 (02:00→20:00)
[2023-09-18 03:41] VITALS: BP 108/74; TEMP 97.8; O2SAT 97
[2023-09-18] MEDS: ADVAIR HFA 115/21MCG INHALER INH SCH ×2 (07:19→20:00)
[2023-09-18 07:30] LABS: HEMATOCRIT 47.4 % (42.0-52.0); HEMOGLOBIN 15.5 g/dl (13.5-17.5); MEAN CORPUSCULAR HEMOGLOBIN 28.2 pg (27.0-33.0); MEAN CORPUSCULAR HGB CONC 32.7 g/dl (32.0-36.5); MEAN CORPUSCULAR VOLUME 86.3 fl (80.0-96.0); PLATELET COUNT, AUTOMATED 235 10^3/uL (150-450); RED BLOOD COUNT 5.49 10^6/uL (4.30-6.10); WHITE BLOOD COUNT 8.6 10^3/uL (4.0-10.0)
[2023-09-18 07:37] VITALS: BP 116/71; TEMP 97.8; O2SAT 98
[2023-09-18 08:01] LABS: CK-MB VALUE MASS < 1.0 NG/ML (<3.6)
[2023-09-18 08:03] LABS: C REACTIVE PROTEIN QUANTITATIV < 0.40 MG/DL (<1.0)
[2023-09-18 08:04] LABS: CPK CREATINE PHOSPHOKINASE 34 U/L (46-171); MB/CK RELATIVE INDEX 2.94 (< OR =4)
[2023-09-18 08:33] LABS: BLOOD UREA NITROGEN 11 MG/DL (9-23); CALCIUM LEVEL 8.9 MG/DL (8.5-10.1); CARBON DIOXIDE LEVEL 25 MMOL/L (20-31); CHLORIDE LEVEL 103 MMOL/L (98-107); CREATININE FOR GFR 0.67 MG/DL (0.70-1.30); GLOMERULAR FILTRATION RATE > 60.0 (>56); GLUCOSE, FASTING 133 MG/DL (60-100); MAGNESIUM LEVEL 1.9 MG/DL (1.8-2.4); POTASSIUM SERUM 3.9 MMOL/L (3.5-5.1); SODIUM LEVEL 139 MMOL/L (136-145)
[2023-09-18] MEDS: ASPIRIN 325 MG TAB PO SCH (08:45)
[2023-09-18] MEDS: ATORVASTATIN 20 MG TAB PO SCH (08:45)
[2023-09-18] MEDS: GABAPENTIN 300 MG CAP PO SCH ×3 (08:45→20:35)
[2023-09-18] MEDS: ENOXAPARIN 40MG/0.4ML SYRINGE (J1650 PER 10MG) SC SCH ×3 (08:45→09:00)
[2023-09-18] MEDS: FLUTICASONE PROP 0.05% NASAL SPRAY 16 GM (FLONASE) NARES SCH (08:45)
[2023-09-18] MEDS: THIAMINE 100 MG TAB PO SCH ×2 (08:46→20:35)
[2023-09-18] MEDS: CLOPIDOGREL 75 MG TAB PO SCH (08:46)
[2023-09-18] MEDS: MULTIVITAMINS/MINERALS THERAP 1 TAB PO SCH (08:46)
[2023-09-18] MEDS: TOPIRAMATE (TopAMAX) 25 MG TAB PO SCH (08:46)
[2023-09-18] MEDS: PANTOPRAZOLE 40MG TAB (PROTONIX) PO SCH (08:46)
[2023-09-18] MEDS: FOLIC ACID 1MG TAB PO SCH (08:46)
[2023-09-18] MEDS: ONDANSETRON 4MG TAB PO PRN (13:29)
[2023-09-18 15:40] VITALS: BP 129/71; TEMP 97.7; O2SAT 96
[2023-09-18 15:48] LABS: CK-MB VALUE MASS < 1.0 NG/ML (<3.6)
[2023-09-18 15:54] LABS: MB/CK RELATIVE INDEX 2.77 (< OR =4)
[2023-09-18 15:55] LABS: CPK CREATINE PHOSPHOKINASE 36 U/L (46-171)
[2023-09-18] MEDS: AMITRIPTYLINE 25MG TABLET PO SCH (20:35)
[2023-09-18] MEDS: QUEtiapine FUMARATE 100 MG TAB PO SCH (20:35)
[2023-09-18 20:50] VITALS: BP 130/71; TEMP 98; O2SAT 96
[2023-09-19] MEDS: IPRATROPIUM 0.5MG/ALBUTEROL 2.5MG INH SOL UD 3ML (DUONEB) NEB SCH ×4 (02:00→19:22)
[2023-09-19 05:00] VITALS: BP 107/66; TEMP 97.2; O2SAT 99
[2023-09-19 07:29] LABS: HEMATOCRIT 44.9 % (42.0-52.0); HEMOGLOBIN 14.6 g/dl (13.5-17.5); MEAN CORPUSCULAR HGB CONC 32.5 g/dl (32.0-36.5); MEAN CORPUSCULAR VOLUME 86.2 fl (80.0-96.0); PLATELET COUNT, AUTOMATED 189 10^3/uL (150-450); RED BLOOD COUNT 5.21 10^6/uL (4.30-6.10); WHITE BLOOD COUNT 7.7 10^3/uL (4.0-10.0)
[2023-09-19 07:43] VITALS: BP 110/67; TEMP 97.1; O2SAT 96
[2023-09-19 07:51] LABS: BLOOD UREA NITROGEN 11 MG/DL (9-23); CALCIUM LEVEL 8.4 MG/DL (8.5-10.1); CARBON DIOXIDE LEVEL 25 MMOL/L (20-31); CHLORIDE LEVEL 106 MMOL/L (98-107); CREATININE FOR GFR 0.66 MG/DL (0.70-1.30); GLOMERULAR FILTRATION RATE > 60.0 (>56); GLUCOSE, FASTING 139 MG/DL (60-100); MAGNESIUM LEVEL 1.7 MG/DL (1.8-2.4); POTASSIUM SERUM 3.7 MMOL/L (3.5-5.1); SODIUM LEVEL 139 MMOL/L (136-145)
[2023-09-19] MEDS: ADVAIR HFA 115/21MCG INHALER INH SCH ×2 (08:00→19:21)
[2023-09-19] MEDS: amLODIPine 5 MG TAB PO SCH (08:55)
[2023-09-19] MEDS: FLUTICASONE PROP 0.05% NASAL SPRAY 16 GM (FLONASE) NARES SCH (09:00)
[2023-09-19] MEDS: ENOXAPARIN 40MG/0.4ML SYRINGE (J1650 PER 10MG) SC SCH (09:00)
[2023-09-19] MEDS ORDERED: MAG SULF 1GM/100ML (MAG RUN) 1 GM in IV 1 EA IV ONE (10:00)
[2023-09-19] MEDS: ASPIRIN 325 MG TAB PO SCH (10:09)
[2023-09-19] MEDS: FOLIC ACID 1MG TAB PO SCH (10:10)
[2023-09-19] MEDS: PANTOPRAZOLE 40MG TAB (PROTONIX) PO SCH (10:10)
[2023-09-19] MEDS: ATORVASTATIN 20 MG TAB PO SCH (10:10)
[2023-09-19] MEDS: CLOPIDOGREL 75 MG TAB PO SCH (10:10)
[2023-09-19] MEDS: TOPIRAMATE (TopAMAX) 25 MG TAB PO SCH (10:10)
[2023-09-19] MEDS: GABAPENTIN 300 MG CAP PO SCH ×3 (10:10→20:16)
[2023-09-19] MEDS: THIAMINE 100 MG TAB PO SCH ×2 (10:11→20:16)
[2023-09-19] MEDS: MAGNESIUM OXIDE 400MG TAB (MAG-OX) PO SCH ×3 (10:11→20:16)
[2023-09-19] MEDS: MULTIVITAMINS/MINERALS THERAP 1 TAB PO SCH (10:11)
[2023-09-19 14:08] LABS: HEPATITIS C QUANTITATION 12600 IU/mL (.)
[2023-09-19 16:02] VITALS: BP 128/74; TEMP 97.6; O2SAT 94
[2023-09-19 19:17] VITALS: BP 124/80; TEMP 97.3; O2SAT 94
[2023-09-19] MEDS: QUEtiapine FUMARATE 25 MG TAB PO SCH (20:16)
[2023-09-19] MEDS ORDERED: GABAPENTIN 300 MG CAP PO SCH (21:00)
[2023-09-20] MEDS: IPRATROPIUM 0.5MG/ALBUTEROL 2.5MG INH SOL UD 3ML (DUONEB) NEB SCH ×4 (01:12→19:50)
[2023-09-20 05:27] VITALS: BP 113/78; TEMP 97.9; O2SAT 95
[2023-09-20 05:49] LABS: HEMATOCRIT 44.1 % (42.0-52.0); HEMOGLOBIN 14.5 g/dl (13.5-17.5); MEAN CORPUSCULAR HEMOGLOBIN 28.3 pg (27.0-33.0); MEAN CORPUSCULAR HGB CONC 32.9 g/dl (32.0-36.5); MEAN CORPUSCULAR VOLUME 86.1 fl (80.0-96.0); PLATELET COUNT, AUTOMATED 170 10^3/uL (150-450); RED BLOOD COUNT 5.12 10^6/uL (4.30-6.10); WHITE BLOOD COUNT 7.2 10^3/uL (4.0-10.0)
[2023-09-20 06:10] LABS: BLOOD UREA NITROGEN 8 MG/DL (9-23); CALCIUM LEVEL 8.7 MG/DL (8.5-10.1); CARBON DIOXIDE LEVEL 24 MMOL/L (20-31); CHLORIDE LEVEL 107 MMOL/L (98-107); CREATININE FOR GFR 0.57 MG/DL (0.70-1.30); GLOMERULAR FILTRATION RATE > 60.0 (>56); GLUCOSE, FASTING 138 MG/DL (60-100); MAGNESIUM LEVEL 1.8 MG/DL (1.8-2.4); POTASSIUM SERUM 3.5 MMOL/L (3.5-5.1); SODIUM LEVEL 140 MMOL/L (136-145)
[2023-09-20 07:14] VITALS: BP 110/68; TEMP 97.8; O2SAT 97
[2023-09-20] MEDS: ADVAIR HFA 115/21MCG INHALER INH SCH ×2 (08:00→19:50)
[2023-09-20] MEDS: amLODIPine 5 MG TAB PO SCH (08:10)
[2023-09-20] MEDS: GABAPENTIN 300 MG CAP PO SCH ×3 (08:16→20:57)
[2023-09-20] MEDS: MULTIVITAMINS/MINERALS THERAP 1 TAB PO SCH (08:16)
[2023-09-20] MEDS: ATORVASTATIN 20 MG TAB PO SCH (08:16)
[2023-09-20] MEDS: ASPIRIN 325 MG TAB PO SCH (08:16)
[2023-09-20] MEDS: PANTOPRAZOLE 40MG TAB (PROTONIX) PO SCH (08:16)
[2023-09-20] MEDS: THIAMINE 100 MG TAB PO SCH ×2 (08:16→20:56)
[2023-09-20] MEDS: TOPIRAMATE (TopAMAX) 25 MG TAB PO SCH (08:16)
[2023-09-20] MEDS: FLUTICASONE PROP 0.05% NASAL SPRAY 16 GM (FLONASE) NARES SCH (08:17)
[2023-09-20] MEDS: MAGNESIUM OXIDE 400MG TAB (MAG-OX) PO SCH ×3 (08:17→20:56)
[2023-09-20] MEDS: FOLIC ACID 1MG TAB PO SCH (08:17)
[2023-09-20] MEDS: ENOXAPARIN 40MG/0.4ML SYRINGE (J1650 PER 10MG) SC SCH (08:17)
[2023-09-20] MEDS: CLOPIDOGREL 75 MG TAB PO SCH (08:17)
[2023-09-20] MEDS ORDERED: KETOROLAC 30 MG/ML 1ML VIAL IV ONE (09:00)
[2023-09-20] MEDS: ACETAMINOPHEN 500 MG TAB PO SCH ×3 (09:42→20:56)
[2023-09-20 13:53] LABS: APPEARANCE, URINE CLEAR (CLEAR); BACTERIA, URINE AUTO NEGATIVE (NEGATIVE); BILIRUBIN, URINE AUTO NEGATIVE (NEGATIVE); BLOOD, URINE BLOOD NEGATIVE (NEGATIVE); COLOR, URINE YELLOW (YELLOW); GLUCOSE, URINE (UA) AUTO NEGATIVE (NEGATIVE); KETONE, URINE AUTO NEGATIVE (NEGATIVE); LEUKOCYTE ESTERASE, URINE AUTO NEGATIVE (NEGATIVE); MUCUS, URINE SMALL (NEGATIVE); NITRITE, URINE AUTO NEGATIVE (NEGATIVE); PROTEIN, URINE AUTO NEGATIVE (NEGATIVE); RBC, URINE AUTO 0 /HPF (0-3); SPECIFIC GRAVITY URINE AUTO 1.025 (1.002-1.035); SQUAMOUS EPITHELIAL CELL UR AU 0 /HPF (0-6); UROBILINOGEN, URINE AUTO 0.2 mg/dL (0.0-2.0); WBC, URINE AUTO 1 /HPF (0-3)
[2023-09-20 14:15] LABS: AMPHETAMINES LEVEL URINE NEGATIVE (NEGATIVE); BARBITURATES URINE NEGATIVE (NEGATIVE)
[2023-09-20 14:16] LABS: BENZODIAZEPINES URINE NEGATIVE (NEGATIVE); CANNABINOIDS URINE NEGATIVE (NEGATIVE); COCAINE METABOLITE URINE NEGATIVE (NEGATIVE); METHADONE URINE NEGATIVE (NEGATIVE); OPIATES URINE NEGATIVE (NEGATIVE); PHENCYCLIDINE URINE NEGATIVE (NEGATIVE)
[2023-09-20 16:00] VITALS: BP 132/76; TEMP 97.6; O2SAT 99
[2023-09-20 19:22] VITALS: BP 134/88; TEMP 97.4; O2SAT 99
[2023-09-20] MEDS: QUEtiapine FUMARATE 25 MG TAB PO SCH (20:57)
[2023-09-21] MEDS: IPRATROPIUM 0.5MG/ALBUTEROL 2.5MG INH SOL UD 3ML (DUONEB) NEB SCH ×4 (01:20→19:28)
[2023-09-21 03:46] VITALS: BP 120/74; TEMP 97.8; O2SAT 99
[2023-09-21 05:15] LABS: HEMATOCRIT 41.4 % (42.0-52.0); HEMOGLOBIN 13.6 g/dl (13.5-17.5); MEAN CORPUSCULAR HEMOGLOBIN 28.6 pg (27.0-33.0); MEAN CORPUSCULAR HGB CONC 32.9 g/dl (32.0-36.5); MEAN CORPUSCULAR VOLUME 87.2 fl (80.0-96.0); PLATELET COUNT, AUTOMATED 176 10^3/uL (150-450); RED BLOOD COUNT 4.75 10^6/uL (4.30-6.10); WHITE BLOOD COUNT 6.9 10^3/uL (4.0-10.0)
[2023-09-21 05:24] LABS: BLOOD UREA NITROGEN 11 MG/DL (9-23); CALCIUM LEVEL 8.1 MG/DL (8.5-10.1); CARBON DIOXIDE LEVEL 24 MMOL/L (20-31); CHLORIDE LEVEL 109 MMOL/L (98-107); CREATININE FOR GFR 0.56 MG/DL (0.70-1.30); GLOMERULAR FILTRATION RATE > 60.0 (>56); GLUCOSE, FASTING 133 MG/DL (60-100); MAGNESIUM LEVEL 1.8 MG/DL (1.8-2.4); POTASSIUM SERUM 3.5 MMOL/L (3.5-5.1); SODIUM LEVEL 142 MMOL/L (136-145)
[2023-09-21 07:25] VITALS: BP 116/75; TEMP 97.3; O2SAT 98
[2023-09-21] MEDS: ADVAIR HFA 115/21MCG INHALER INH SCH ×2 (08:00→19:29)
[2023-09-21] MEDS: THIAMINE 100 MG TAB PO SCH (08:22)
[2023-09-21] MEDS: MAGNESIUM OXIDE 400MG TAB (MAG-OX) PO SCH ×2 (08:22→21:17)
[2023-09-21] MEDS: FOLIC ACID 1MG TAB PO SCH (08:22)
[2023-09-21] MEDS: TOPIRAMATE (TopAMAX) 25 MG TAB PO SCH (08:22)
[2023-09-21] MEDS: PANTOPRAZOLE 40MG TAB (PROTONIX) PO SCH (08:22)
[2023-09-21] MEDS: CLOPIDOGREL 75 MG TAB PO SCH (08:22)
[2023-09-21] MEDS: ATORVASTATIN 20 MG TAB PO SCH (08:22)
[2023-09-21] MEDS: ASPIRIN 325 MG TAB PO SCH (08:22)
[2023-09-21] MEDS: MULTIVITAMINS/MINERALS THERAP 1 TAB PO SCH (08:22)
[2023-09-21] MEDS: ACETAMINOPHEN 500 MG TAB PO SCH ×3 (08:23→21:14)
[2023-09-21] MEDS: GABAPENTIN 300 MG CAP PO SCH ×3 (08:23→21:14)
[2023-09-21 08:24] VITALS: BP 116/75
[2023-09-21] MEDS: amLODIPine 5 MG TAB PO SCH (08:24)
[2023-09-21] MEDS: ENOXAPARIN 40MG/0.4ML SYRINGE (J1650 PER 10MG) SC SCH (08:24)
[2023-09-21] MEDS: FLUTICASONE PROP 0.05% NASAL SPRAY 16 GM (FLONASE) NARES SCH (08:24)
[2023-09-21 21:29] VITALS: BP 120/71; TEMP 98.1; O2SAT 99
[2023-09-22] MEDS: IPRATROPIUM 0.5MG/ALBUTEROL 2.5MG INH SOL UD 3ML (DUONEB) NEB SCH ×4 (01:31→20:00)
[2023-09-22 07:34] VITALS: BP 134/82; TEMP 98.5; O2SAT 99
[2023-09-22] MEDS: ASPIRIN 325 MG TAB PO SCH (08:02)
[2023-09-22] MEDS: PANTOPRAZOLE 40MG TAB (PROTONIX) PO SCH (08:02)
[2023-09-22] MEDS: MULTIVITAMINS/MINERALS THERAP 1 TAB PO SCH (08:03)
[2023-09-22] MEDS: ENOXAPARIN 40MG/0.4ML SYRINGE (J1650 PER 10MG) SC SCH (08:04)
[2023-09-22] MEDS: CLOPIDOGREL 75 MG TAB PO SCH (08:04)
[2023-09-22] MEDS: ACETAMINOPHEN 500 MG TAB PO SCH ×3 (08:04→20:43)
[2023-09-22] MEDS: TOPIRAMATE (TopAMAX) 25 MG TAB PO SCH (08:04)
[2023-09-22] MEDS: QUEtiapine FUMARATE 25 MG TAB PO SCH ×2 (08:04→20:43)
[2023-09-22] MEDS: GABAPENTIN 300 MG CAP PO SCH ×3 (08:05→20:42)
[2023-09-22] MEDS: ATORVASTATIN 20 MG TAB PO SCH (08:05)
[2023-09-22] MEDS: FLUTICASONE PROP 0.05% NASAL SPRAY 16 GM (FLONASE) NARES SCH (08:05)
[2023-09-22] MEDS: FOLIC ACID 1MG TAB PO SCH (08:05)
[2023-09-22] MEDS: MAGNESIUM OXIDE 400MG TAB (MAG-OX) PO SCH ×2 (08:05→20:42)
[2023-09-22] MEDS: ADVAIR HFA 115/21MCG INHALER INH SCH ×2 (08:15→20:07)
[2023-09-22 08:24] VITALS: BP 133/83
[2023-09-22] MEDS ORDERED: THIAMINE 100 MG TAB PO SCH (09:00)
[2023-09-22] MEDS: ONDANSETRON 4MG TAB PO PRN (12:07)
[2023-09-22] MEDS: MECLIZINE 12.5 MG TAB PO SCH ×2 (12:07→17:13)
[2023-09-22 12:10] VITALS: BP 131/85; TEMP 97.6; O2SAT 97
[2023-09-22 15:45] VITALS: BP 118/71; TEMP 98.6; O2SAT 98
[2023-09-22] MEDS ORDERED: MECLIZINE 12.5 MG TAB PO PRN (17:55)
[2023-09-22 21:52] VITALS: BP 127/75; TEMP 97.9; O2SAT 99
[2023-09-23] MEDS: IPRATROPIUM 0.5MG/ALBUTEROL 2.5MG INH SOL UD 3ML (DUONEB) NEB SCH ×4 (02:00→20:00)
[2023-09-23 06:14] LABS: BASO # 0.1 10^3/uL (0.0-0.2); BASO % 0.6 % (0.0-1.0); EOS # 0.4 10^3/uL (0.0-0.5); EOS % 4.4 % (0.0-3.0); HEMATOCRIT 44.6 % (42.0-52.0); HEMOGLOBIN 14.3 g/dl (13.5-17.5); LYMPH # 2.1 10^3/uL (1.5-5.0); LYMPH % 24.2 % (24.0-44.0); MEAN CORPUSCULAR HEMOGLOBIN 27.8 pg (27.0-33.0); MEAN CORPUSCULAR HGB CONC 32.1 g/dl (32.0-36.5); MEAN CORPUSCULAR VOLUME 86.6 fl (80.0-96.0); MONO # 0.7 10^3/uL (0.0-0.8); MONO % 8.1 % (2.0-8.0); NEUTROPHILS # 5.3 10^3/uL (1.5-8.5); NEUTROPHILS % 61.8 % (36.0-66.0); PLATELET COUNT, AUTOMATED 190 10^3/uL (150-450); RED BLOOD COUNT 5.15 10^6/uL (4.30-6.10); WHITE BLOOD COUNT 8.5 10^3/uL (4.0-10.0)
[2023-09-23 06:40] VITALS: BP 127/76; TEMP 97.3; O2SAT 97
[2023-09-23 06:45] LABS: ALBUMIN 3.2 G/DL (3.2-5.2); ALKALINE PHOSPHATASE 81 U/L (46-116); ALT/SGPT 39 U/L (7.0-40); AST/SGOT 26 U/L (<34); BILIRUBIN,TOTAL 0.2 MG/DL (0.3-1.2); BLOOD UREA NITROGEN 11 MG/DL (9-23); CALCIUM LEVEL 8.8 MG/DL (8.5-10.1); CARBON DIOXIDE LEVEL 24 MMOL/L (20-31); CHLORIDE LEVEL 104 MMOL/L (98-107); CHOLESTEROL LEVEL 181 MG/DL (<200); CHOLESTEROL RISK RATIO 5.08 (<5); CREATININE FOR GFR 0.61 MG/DL (0.70-1.30); GLOMERULAR FILTRATION RATE > 60.0 (>56); GLUCOSE, FASTING 120 MG/DL (60-100); HDL CHOLESTEROL 35.6 MG/DL (>40); LDL CHOLESTEROL 80.8 MG/DL (<100); NON-HDL-C 145.4 MG/DL; POTASSIUM SERUM 4.3 MMOL/L (3.5-5.1); SODIUM LEVEL 139 MMOL/L (136-145); TOTAL PROTEIN 7.2 G/DL (5.7-8.2); TRIGLYCERIDES LEVEL 323 MG/DL (<150)
[2023-09-23] MEDS: ADVAIR HFA 115/21MCG INHALER INH SCH ×2 (07:24→19:48)
[2023-09-23] MEDS: ENOXAPARIN 40MG/0.4ML SYRINGE (J1650 PER 10MG) SC SCH ×2 (09:00→09:52)
[2023-09-23] MEDS: FLUTICASONE PROP 0.05% NASAL SPRAY 16 GM (FLONASE) NARES SCH (09:00)
[2023-09-23] MEDS: ACETAMINOPHEN 500 MG TAB PO SCH ×3 (09:54→21:58)
[2023-09-23] MEDS: GABAPENTIN 300 MG CAP PO SCH ×3 (09:54→21:58)
[2023-09-23] MEDS: MAGNESIUM OXIDE 400MG TAB (MAG-OX) PO SCH ×2 (09:54→21:58)
[2023-09-23] MEDS: CLOPIDOGREL 75 MG TAB PO SCH (09:54)
[2023-09-23] MEDS: ASPIRIN 325 MG TAB PO SCH (09:54)
[2023-09-23] MEDS: PANTOPRAZOLE 40MG TAB (PROTONIX) PO SCH (09:54)
[2023-09-23 09:58] VITALS: BP 98/68
[2023-09-23 14:00] VITALS: BP 106/71; TEMP 97.5; O2SAT 97
[2023-09-23 21:45] VITALS: BP 107/71; TEMP 97.7; O2SAT 96
[2023-09-23] MEDS: ATORVASTATIN 20 MG TAB PO SCH (21:58)
[2023-09-23] MEDS: MECLIZINE 12.5 MG TAB PO SCH (21:58)
[2023-09-23] MEDS: TOPIRAMATE (TopAMAX) 25 MG TAB PO SCH (21:58)
[2023-09-23] MEDS: QUEtiapine FUMARATE 100 MG TAB PO SCH (21:59)
[2023-09-24] MEDS: IPRATROPIUM 0.5MG/ALBUTEROL 2.5MG INH SOL UD 3ML (DUONEB) NEB SCH ×4 (02:00→19:40)
[2023-09-24 05:57] VITALS: BP 114/75; TEMP 97.2; O2SAT 96
[2023-09-24] MEDS: ADVAIR HFA 115/21MCG INHALER INH SCH ×2 (07:52→19:40)
[2023-09-24] MEDS: GABAPENTIN 300 MG CAP PO SCH (08:42)
[2023-09-24] MEDS: ASPIRIN 325 MG TAB PO SCH (08:42)
[2023-09-24] MEDS: PANTOPRAZOLE 40MG TAB (PROTONIX) PO SCH (08:43)
[2023-09-24] MEDS: ACETAMINOPHEN 500 MG TAB PO SCH ×3 (08:43→21:42)
[2023-09-24] MEDS: MAGNESIUM OXIDE 400MG TAB (MAG-OX) PO SCH ×2 (08:43→21:42)
[2023-09-24] MEDS: CLOPIDOGREL 75 MG TAB PO SCH (08:43)
[2023-09-24] MEDS: ENOXAPARIN 40MG/0.4ML SYRINGE (J1650 PER 10MG) SC SCH (08:43)
[2023-09-24] MEDS: MECLIZINE 12.5 MG TAB PO SCH ×3 (08:43→21:42)
[2023-09-24] MEDS: FLUTICASONE PROP 0.05% NASAL SPRAY 16 GM (FLONASE) NARES SCH (08:55)
[2023-09-24 14:00] VITALS: BP 111/71; TEMP 97.3; O2SAT 98
[2023-09-24] MEDS: GABAPENTIN 400MG CAP PO SCH ×2 (16:00→21:42)
[2023-09-24 21:39] VITALS: BP 125/77; TEMP 97.7; O2SAT 98
[2023-09-24] MEDS: QUEtiapine FUMARATE 100 MG TAB PO SCH (21:42)
[2023-09-24] MEDS: ATORVASTATIN 20 MG TAB PO SCH (21:42)
[2023-09-24] MEDS: TOPIRAMATE (TopAMAX) 25 MG TAB PO SCH (21:42)
[2023-09-25] MEDS: IPRATROPIUM 0.5MG/ALBUTEROL 2.5MG INH SOL UD 3ML (DUONEB) NEB SCH ×2 (02:00→08:00)
[2023-09-25 06:34] VITALS: BP 113/73; TEMP 97.7; O2SAT 99
[2023-09-25] MEDS: ADVAIR HFA 115/21MCG INHALER INH SCH ×2 (07:44→19:49)
[2023-09-25] MEDS: ENOXAPARIN 40MG/0.4ML SYRINGE (J1650 PER 10MG) SC SCH (09:00)
[2023-09-25] MEDS: FLUTICASONE PROP 0.05% NASAL SPRAY 16 GM (FLONASE) NARES SCH (09:44)
[2023-09-25] MEDS: ACETAMINOPHEN 500 MG TAB PO SCH ×3 (09:44→20:44)
[2023-09-25] MEDS: CLOPIDOGREL 75 MG TAB PO SCH (09:45)
[2023-09-25] MEDS: ASPIRIN 325 MG TAB PO SCH (09:45)
[2023-09-25] MEDS: GABAPENTIN 400MG CAP PO SCH ×3 (09:45→20:44)
[2023-09-25] MEDS: PANTOPRAZOLE 40MG TAB (PROTONIX) PO SCH (09:45)
[2023-09-25] MEDS: MAGNESIUM OXIDE 400MG TAB (MAG-OX) PO SCH ×2 (09:45→20:45)
[2023-09-25] MEDS: MECLIZINE 12.5 MG TAB PO SCH (09:45)
[2023-09-25] MEDS: LIDOCAINE 5% (LIDODERM) PATCH TD SCH (15:30)
[2023-09-25] MEDS: MECLIZINE 25 MG TABLET PO SCH ×2 (15:30→20:45)
[2023-09-25 20:00] VITALS: BP 127/81; TEMP 98.4; O2SAT 95
[2023-09-25] MEDS: TOPIRAMATE (TopAMAX) 25 MG TAB PO SCH (20:44)
[2023-09-25] MEDS: QUEtiapine FUMARATE 100 MG TAB PO SCH (20:45)
[2023-09-25] MEDS: ATORVASTATIN 20 MG TAB PO SCH (20:45)
[2023-09-26 06:00] VITALS: BP 126/79; TEMP 98.1; O2SAT 95
[2023-09-26] MEDS: ADVAIR HFA 115/21MCG INHALER INH SCH ×2 (07:24→20:31)
[2023-09-26] MEDS: ENOXAPARIN 40MG/0.4ML SYRINGE (J1650 PER 10MG) SC SCH (09:00)
[2023-09-26] MEDS: PANTOPRAZOLE 40MG TAB (PROTONIX) PO SCH (09:20)
[2023-09-26] MEDS: ASPIRIN 325 MG TAB PO SCH (09:20)
[2023-09-26] MEDS: ACETAMINOPHEN 500 MG TAB PO SCH ×3 (09:20→20:55)
[2023-09-26] MEDS: MAGNESIUM OXIDE 400MG TAB (MAG-OX) PO SCH ×2 (09:20→20:54)
[2023-09-26] MEDS: FLUTICASONE PROP 0.05% NASAL SPRAY 16 GM (FLONASE) NARES SCH (09:21)
[2023-09-26] MEDS: CLOPIDOGREL 75 MG TAB PO SCH (09:21)
[2023-09-26] MEDS: MECLIZINE 25 MG TABLET PO SCH ×3 (09:21→20:54)
[2023-09-26] MEDS: GABAPENTIN 400MG CAP PO SCH ×3 (09:21→20:54)
[2023-09-26] MEDS: LIDOCAINE 5% (LIDODERM) PATCH TD SCH (09:22)
[2023-09-26] MEDS: ONDANSETRON 4MG TAB PO PRN (10:46)
[2023-09-26 14:00] VITALS: BP 117/79; TEMP 97.7; O2SAT 97
[2023-09-26] MEDS: TOPIRAMATE (TopAMAX) 25 MG TAB PO SCH (20:54)
[2023-09-26] MEDS: QUEtiapine FUMARATE 100 MG TAB PO SCH (20:54)
[2023-09-26] MEDS: ATORVASTATIN 20 MG TAB PO SCH (20:54)
[2023-09-26] MEDS: RAMELTEON 8 MG TAB (ROZEREM) PO PRN (20:55)
[2023-09-26 22:00] VITALS: BP 120/64; TEMP 97.5; O2SAT 96
[2023-09-27 05:10] VITALS: BP 119/88; TEMP 97.2; O2SAT 99
[2023-09-27] MEDS: ADVAIR HFA 115/21MCG INHALER INH SCH ×2 (07:26→20:01)
[2023-09-27] MEDS: LIDOCAINE 5% (LIDODERM) PATCH TD SCH (09:00)
[2023-09-27] MEDS: ENOXAPARIN 40MG/0.4ML SYRINGE (J1650 PER 10MG) SC SCH (09:00)
[2023-09-27] MEDS: ASPIRIN 325 MG TAB PO SCH (09:06)
[2023-09-27] MEDS: CLOPIDOGREL 75 MG TAB PO SCH (09:06)
[2023-09-27] MEDS: PANTOPRAZOLE 40MG TAB (PROTONIX) PO SCH (09:06)
[2023-09-27] MEDS: MAGNESIUM OXIDE 400MG TAB (MAG-OX) PO SCH ×2 (09:07→21:16)
[2023-09-27] MEDS: ACETAMINOPHEN 500 MG TAB PO SCH ×3 (09:07→21:16)
[2023-09-27] MEDS: FLUTICASONE PROP 0.05% NASAL SPRAY 16 GM (FLONASE) NARES SCH (09:07)
[2023-09-27] MEDS: GABAPENTIN 400MG CAP PO SCH ×3 (09:07→21:15)
[2023-09-27] MEDS: MECLIZINE 25 MG TABLET PO SCH ×3 (09:07→21:16)
[2023-09-27 14:00] VITALS: BP 106/64; TEMP 98.4; O2SAT 98
[2023-09-27 21:00] VITALS: BP 120/75; TEMP 97; O2SAT 96
[2023-09-27] MEDS: TOPIRAMATE (TopAMAX) 25 MG TAB PO SCH (21:15)
[2023-09-27] MEDS: ATORVASTATIN 20 MG TAB PO SCH (21:15)
[2023-09-27] MEDS: QUEtiapine FUMARATE 100 MG TAB PO SCH (21:16)
[2023-09-27] MEDS: RAMELTEON 8 MG TAB (ROZEREM) PO PRN (21:16)
[2023-09-28 05:15] VITALS: BP 120/75; TEMP 97.5; O2SAT 93
[2023-09-28] MEDS: ADVAIR HFA 115/21MCG INHALER INH SCH ×2 (07:31→19:38)
[2023-09-28] MEDS: MECLIZINE 25 MG TABLET PO SCH ×3 (08:00→21:21)
[2023-09-28] MEDS: PANTOPRAZOLE 40MG TAB (PROTONIX) PO SCH (08:00)
[2023-09-28] MEDS: CLOPIDOGREL 75 MG TAB PO SCH (08:00)
[2023-09-28] MEDS: ASPIRIN 325 MG TAB PO SCH (08:00)
[2023-09-28] MEDS: GABAPENTIN 400MG CAP PO SCH ×3 (08:00→21:21)
[2023-09-28] MEDS: MAGNESIUM OXIDE 400MG TAB (MAG-OX) PO SCH ×2 (08:00→21:21)
[2023-09-28] MEDS: ACETAMINOPHEN 500 MG TAB PO SCH ×3 (08:01→21:20)
[2023-09-28] MEDS: FLUTICASONE PROP 0.05% NASAL SPRAY 16 GM (FLONASE) NARES SCH (08:01)
[2023-09-28] MEDS: LIDOCAINE 5% (LIDODERM) PATCH TD SCH (08:01)
[2023-09-28] MEDS: ENOXAPARIN 40MG/0.4ML SYRINGE (J1650 PER 10MG) SC SCH (08:01)
[2023-09-28 14:00] VITALS: BP 120/75; TEMP 98.3; O2SAT 97
[2023-09-28 20:45] VITALS: BP 120/76; TEMP 97; O2SAT 97
[2023-09-28] MEDS: ATORVASTATIN 20 MG TAB PO SCH (21:20)
[2023-09-28] MEDS: QUEtiapine FUMARATE 100 MG TAB PO SCH (21:21)
[2023-09-28] MEDS: TOPIRAMATE (TopAMAX) 25 MG TAB PO SCH (21:21)
[2023-09-29 05:10] VITALS: BP 102/66; TEMP 97.3; O2SAT 98
[2023-09-29] MEDS: ADVAIR HFA 115/21MCG INHALER INH SCH ×2 (07:33→19:40)
[2023-09-29] MEDS: ENOXAPARIN 40MG/0.4ML SYRINGE (J1650 PER 10MG) SC SCH (09:00)
[2023-09-29] MEDS: LIDOCAINE 5% (LIDODERM) PATCH TD SCH (09:23)
[2023-09-29] MEDS: GABAPENTIN 400MG CAP PO SCH ×3 (09:24→21:38)
[2023-09-29] MEDS: CLOPIDOGREL 75 MG TAB PO SCH (09:24)
[2023-09-29] MEDS: FLUTICASONE PROP 0.05% NASAL SPRAY 16 GM (FLONASE) NARES SCH (09:24)
[2023-09-29] MEDS: ASPIRIN 325 MG TAB PO SCH (09:24)
[2023-09-29] MEDS: MECLIZINE 25 MG TABLET PO SCH ×3 (09:24→21:38)
[2023-09-29] MEDS: MAGNESIUM OXIDE 400MG TAB (MAG-OX) PO SCH ×2 (09:24→21:38)
[2023-09-29] MEDS: PANTOPRAZOLE 40MG TAB (PROTONIX) PO SCH (09:25)
[2023-09-29] MEDS: ACETAMINOPHEN 500 MG TAB PO SCH ×3 (09:25→21:38)
[2023-09-29 14:00] VITALS: BP 124/74; TEMP 97.2; O2SAT 98
[2023-09-29] MEDS: ATORVASTATIN 20 MG TAB PO SCH (21:37)
[2023-09-29] MEDS: QUEtiapine FUMARATE 100 MG TAB PO SCH (21:38)
[2023-09-29] MEDS: RAMELTEON 8 MG TAB (ROZEREM) PO PRN (21:38)
[2023-09-29] MEDS: TOPIRAMATE (TopAMAX) 25 MG TAB PO SCH (21:38)
[2023-09-30 04:30] VITALS: BP 111/69; TEMP 98.1; O2SAT 96
[2023-09-30] MEDS: ADVAIR HFA 115/21MCG INHALER INH SCH ×2 (07:36→19:56)
[2023-09-30] MEDS: ENOXAPARIN 40MG/0.4ML SYRINGE (J1650 PER 10MG) SC SCH (09:00)
[2023-09-30] MEDS: LIDOCAINE 5% (LIDODERM) PATCH TD SCH (09:54)
[2023-09-30] MEDS: GABAPENTIN 400MG CAP PO SCH ×3 (09:54→21:41)
[2023-09-30] MEDS: PANTOPRAZOLE 40MG TAB (PROTONIX) PO SCH (09:54)
[2023-09-30] MEDS: ASPIRIN 325 MG TAB PO SCH (09:54)
[2023-09-30] MEDS: MECLIZINE 25 MG TABLET PO SCH ×3 (09:55→21:41)
[2023-09-30] MEDS: MAGNESIUM OXIDE 400MG TAB (MAG-OX) PO SCH ×2 (09:55→21:41)
[2023-09-30] MEDS: ACETAMINOPHEN 500 MG TAB PO SCH ×3 (09:55→21:41)
[2023-09-30] MEDS: FLUTICASONE PROP 0.05% NASAL SPRAY 16 GM (FLONASE) NARES SCH (09:55)
[2023-09-30] MEDS: CLOPIDOGREL 75 MG TAB PO SCH (09:55)
[2023-09-30] MEDS: TOPIRAMATE (TopAMAX) 25 MG TAB PO SCH (21:41)
[2023-09-30] MEDS: ATORVASTATIN 20 MG TAB PO SCH (21:41)
[2023-09-30] MEDS: RAMELTEON 8 MG TAB (ROZEREM) PO PRN (21:41)
[2023-09-30] MEDS: QUEtiapine FUMARATE 100 MG TAB PO SCH (21:41)
[2023-10-01 05:50] VITALS: BP 113/71; TEMP 98.1; O2SAT 98
[2023-10-01] MEDS: ADVAIR HFA 115/21MCG INHALER INH SCH ×2 (07:35→20:00)
[2023-10-01] MEDS: ENOXAPARIN 40MG/0.4ML SYRINGE (J1650 PER 10MG) SC SCH (09:00)
[2023-10-01] MEDS: ACETAMINOPHEN 500 MG TAB PO SCH ×3 (09:18→20:44)
[2023-10-01] MEDS: ASPIRIN 325 MG TAB PO SCH (09:18)
[2023-10-01] MEDS: GABAPENTIN 400MG CAP PO SCH ×3 (09:18→20:42)
[2023-10-01] MEDS: MAGNESIUM OXIDE 400MG TAB (MAG-OX) PO SCH ×2 (09:18→20:42)
[2023-10-01] MEDS: PANTOPRAZOLE 40MG TAB (PROTONIX) PO SCH (09:19)
[2023-10-01] MEDS: MECLIZINE 25 MG TABLET PO SCH ×3 (09:19→20:42)
[2023-10-01] MEDS: CLOPIDOGREL 75 MG TAB PO SCH (09:19)
[2023-10-01] MEDS: FLUTICASONE PROP 0.05% NASAL SPRAY 16 GM (FLONASE) NARES SCH (09:19)
[2023-10-01] MEDS: LIDOCAINE 5% (LIDODERM) PATCH TD SCH (09:20)
[2023-10-01 15:55] VITALS: BP 129/84; TEMP 97.9; O2SAT 98
[2023-10-01] MEDS ORDERED: oxyCODONE 5MG TAB PO ONE (16:00)
[2023-10-01 17:07] LABS: CK-MB VALUE MASS < 1.0 NG/ML (<3.6)
[2023-10-01 17:09] LABS: CPK CREATINE PHOSPHOKINASE 48 U/L (46-171); MB/CK RELATIVE INDEX 2.08 (< OR =4)
[2023-10-01 20:05] LABS: CK-MB VALUE MASS < 1.0 NG/ML (<3.6)
[2023-10-01 20:12] LABS: CPK CREATINE PHOSPHOKINASE 46 U/L (46-171); MB/CK RELATIVE INDEX 2.17 (< OR =4)
[2023-10-01] MEDS: RAMELTEON 8 MG TAB (ROZEREM) PO PRN (20:42)
[2023-10-01] MEDS: TOPIRAMATE (TopAMAX) 25 MG TAB PO SCH (20:42)
[2023-10-01] MEDS: ATORVASTATIN 20 MG TAB PO SCH (20:42)
[2023-10-01] MEDS: QUEtiapine FUMARATE 100 MG TAB PO SCH (20:48)
[2023-10-01 23:13] VITALS: TEMP 98.6; O2SAT 96
[2023-10-02 00:06] VITALS: BP 112/77; O2SAT 98
[2023-10-02 06:36] VITALS: BP 103/66; TEMP 98.1; O2SAT 94
[2023-10-02] MEDS: ADVAIR HFA 115/21MCG INHALER INH SCH ×2 (07:29→20:15)
[2023-10-02] MEDS: ASPIRIN 325 MG TAB PO SCH (08:09)
[2023-10-02] MEDS: ACETAMINOPHEN 500 MG TAB PO SCH ×3 (08:10→20:55)
[2023-10-02] MEDS: GABAPENTIN 400MG CAP PO SCH ×3 (08:10→20:54)
[2023-10-02] MEDS: MAGNESIUM OXIDE 400MG TAB (MAG-OX) PO SCH ×2 (08:10→20:55)
[2023-10-02] MEDS: CLOPIDOGREL 75 MG TAB PO SCH (08:10)
[2023-10-02] MEDS: PANTOPRAZOLE 40MG TAB (PROTONIX) PO SCH (08:10)
[2023-10-02] MEDS: LIDOCAINE 5% (LIDODERM) PATCH TD SCH (08:10)
[2023-10-02] MEDS: ENOXAPARIN 40MG/0.4ML SYRINGE (J1650 PER 10MG) SC SCH (08:11)
[2023-10-02] MEDS: FLUTICASONE PROP 0.05% NASAL SPRAY 16 GM (FLONASE) NARES SCH (08:11)
[2023-10-02] MEDS: MECLIZINE 25 MG TABLET PO SCH ×3 (08:14→20:54)
[2023-10-02] MEDS: RAMELTEON 8 MG TAB (ROZEREM) PO PRN (20:54)
[2023-10-02] MEDS: TOPIRAMATE (TopAMAX) 25 MG TAB PO SCH (20:54)
[2023-10-02] MEDS: QUEtiapine FUMARATE 100 MG TAB PO SCH (20:54)
[2023-10-02] MEDS: ATORVASTATIN 20 MG TAB PO SCH (20:55)
[2023-10-03 06:16] VITALS: BP 113/79; TEMP 97; O2SAT 96
[2023-10-03] MEDS: ADVAIR HFA 115/21MCG INHALER INH SCH ×2 (06:19→19:48)
[2023-10-03] MEDS: ENOXAPARIN 40MG/0.4ML SYRINGE (J1650 PER 10MG) SC SCH (08:37)
[2023-10-03] MEDS: ASPIRIN 325 MG TAB PO SCH (08:44)
[2023-10-03] MEDS: CLOPIDOGREL 75 MG TAB PO SCH (08:44)
[2023-10-03] MEDS: PANTOPRAZOLE 40MG TAB (PROTONIX) PO SCH (08:44)
[2023-10-03] MEDS: FLUTICASONE PROP 0.05% NASAL SPRAY 16 GM (FLONASE) NARES SCH (08:45)
[2023-10-03] MEDS: ACETAMINOPHEN 500 MG TAB PO SCH ×2 (08:45→20:47)
[2023-10-03] MEDS: MAGNESIUM OXIDE 400MG TAB (MAG-OX) PO SCH ×2 (08:45→20:46)
[2023-10-03] MEDS: MECLIZINE 25 MG TABLET PO SCH ×3 (08:45→20:46)
[2023-10-03] MEDS: GABAPENTIN 400MG CAP PO SCH (08:45)
[2023-10-03] MEDS: LIDOCAINE 5% (LIDODERM) PATCH TD SCH (08:45)
[2023-10-03] MEDS ORDERED: PILL CUTTER 1 EACH XX PRN (12:00)
[2023-10-03 13:04] LABS: BASO % 0.4 % (0.0-1.0); EOS # 0.3 10^3/uL (0.0-0.5); EOS % 3.4 % (0.0-3.0); HEMATOCRIT 41.8 % (42.0-52.0); HEMOGLOBIN 13.5 g/dl (13.5-17.5); LYMPH # 1.8 10^3/uL (1.5-5.0); LYMPH % 19.4 % (24.0-44.0); MEAN CORPUSCULAR HEMOGLOBIN 28.2 pg (27.0-33.0); MEAN CORPUSCULAR HGB CONC 32.3 g/dl (32.0-36.5); MEAN CORPUSCULAR VOLUME 87.3 fl (80.0-96.0); MONO # 0.7 10^3/uL (0.0-0.8); MONO % 7.6 % (2.0-8.0); NEUTROPHILS % 66.5 % (36.0-66.0); PLATELET COUNT, AUTOMATED 157 10^3/uL (150-450); RED BLOOD COUNT 4.79 10^6/uL (4.30-6.10)
[2023-10-03 13:32] LABS: ALBUMIN 3.3 G/DL (3.2-5.2); ALKALINE PHOSPHATASE 62 U/L (46-116); ALT/SGPT 34 U/L (7.0-40); AST/SGOT 21 U/L (<34); BILIRUBIN,TOTAL 0.3 MG/DL (0.3-1.2); BLOOD UREA NITROGEN 14 MG/DL (9-23); CARBON DIOXIDE LEVEL 26 MMOL/L (20-31); CHLORIDE LEVEL 102 MMOL/L (98-107); GLOMERULAR FILTRATION RATE > 60.0 (>56); GLUCOSE, FASTING 132 MG/DL (60-100); POTASSIUM SERUM 4.6 MMOL/L (3.5-5.1); SODIUM LEVEL 137 MMOL/L (136-145); TOTAL PROTEIN 7.2 G/DL (5.7-8.2)
[2023-10-03] MEDS: GABAPENTIN 300 MG CAP PO SCH ×2 (16:34→20:46)
[2023-10-03] MEDS: oxyCODONE 5MG TAB PO PRN (16:37)
[2023-10-03] MEDS: QUEtiapine FUMARATE 100 MG TAB PO SCH (20:47)
[2023-10-03] MEDS: TOPIRAMATE (TopAMAX) 25 MG TAB PO SCH (20:47)
[2023-10-03] MEDS: ATORVASTATIN 20 MG TAB PO SCH (20:47)
[2023-10-03] MEDS ORDERED: oxyCODONE 5MG TAB PO SCH (21:00)
[2023-10-04 06:00] VITALS: BP 108/71; TEMP 98.1; O2SAT 96
[2023-10-04] MEDS: ADVAIR HFA 115/21MCG INHALER INH SCH ×2 (08:26→19:45)
[2023-10-04] MEDS: ENOXAPARIN 40MG/0.4ML SYRINGE (J1650 PER 10MG) SC SCH (09:00)
[2023-10-04] MEDS: GABAPENTIN 300 MG CAP PO SCH ×3 (09:21→21:26)
[2023-10-04] MEDS: CLOPIDOGREL 75 MG TAB PO SCH (09:21)
[2023-10-04] MEDS: ACETAMINOPHEN 500 MG TAB PO SCH ×2 (09:21→21:26)
[2023-10-04] MEDS: MAGNESIUM OXIDE 400MG TAB (MAG-OX) PO SCH ×2 (09:21→21:26)
[2023-10-04] MEDS: MECLIZINE 25 MG TABLET PO SCH ×3 (09:21→21:26)
[2023-10-04] MEDS: ASPIRIN 81MG ENTERIC TABLET PO SCH (09:21)
[2023-10-04] MEDS: PANTOPRAZOLE 40MG TAB (PROTONIX) PO SCH (09:21)
[2023-10-04] MEDS: LIDOCAINE 5% (LIDODERM) PATCH TD SCH (09:22)
[2023-10-04] MEDS: FLUTICASONE PROP 0.05% NASAL SPRAY 16 GM (FLONASE) NARES SCH (09:22)
[2023-10-04] MEDS: oxyCODONE 5MG TAB PO PRN (13:41)
[2023-10-04] MEDS: RAMELTEON 8 MG TAB (ROZEREM) PO PRN (21:26)
[2023-10-04] MEDS: QUEtiapine FUMARATE 100 MG TAB PO SCH (21:26)
[2023-10-04] MEDS: TOPIRAMATE (TopAMAX) 25 MG TAB PO SCH (21:26)
[2023-10-04] MEDS: ATORVASTATIN 20 MG TAB PO SCH (21:26)
[2023-10-05 06:00] VITALS: BP 113/67; TEMP 98.4; O2SAT 94
[2023-10-05] MEDS: ADVAIR HFA 115/21MCG INHALER INH SCH ×2 (07:41→20:07)
[2023-10-05] MEDS: ENOXAPARIN 40MG/0.4ML SYRINGE (J1650 PER 10MG) SC SCH (09:00)
[2023-10-05] MEDS: oxyCODONE 5MG TAB PO PRN (09:19)
[2023-10-05] MEDS: MECLIZINE 25 MG TABLET PO SCH ×3 (09:19→20:57)
[2023-10-05] MEDS: FLUTICASONE PROP 0.05% NASAL SPRAY 16 GM (FLONASE) NARES SCH (09:20)
[2023-10-05] MEDS: GABAPENTIN 300 MG CAP PO SCH ×3 (09:21→20:57)
[2023-10-05] MEDS: ACETAMINOPHEN 500 MG TAB PO SCH ×2 (09:21→20:57)
[2023-10-05] MEDS: CLOPIDOGREL 75 MG TAB PO SCH (09:22)
[2023-10-05] MEDS: PANTOPRAZOLE 40MG TAB (PROTONIX) PO SCH (09:22)
[2023-10-05] MEDS: ASPIRIN 81MG ENTERIC TABLET PO SCH (09:22)
[2023-10-05] MEDS: MAGNESIUM OXIDE 400MG TAB (MAG-OX) PO SCH ×2 (09:22→20:57)
[2023-10-05] MEDS: LIDOCAINE 5% (LIDODERM) PATCH TD SCH (09:23)
[2023-10-05] MEDS: ATORVASTATIN 20 MG TAB PO SCH (20:57)
[2023-10-05] MEDS: TOPIRAMATE (TopAMAX) 25 MG TAB PO SCH (20:57)
[2023-10-05] MEDS: QUEtiapine FUMARATE 100 MG TAB PO SCH (20:57)
[2023-10-05] MEDS: RAMELTEON 8 MG TAB (ROZEREM) PO PRN (20:58)
[2023-10-06 06:00] VITALS: BP 105/55; TEMP 98.1; O2SAT 98
[2023-10-06] MEDS: ADVAIR HFA 115/21MCG INHALER INH SCH ×2 (07:36→20:33)
[2023-10-06] MEDS: PANTOPRAZOLE 40MG TAB (PROTONIX) PO SCH (08:53)
[2023-10-06] MEDS: LIDOCAINE 5% (LIDODERM) PATCH TD SCH (08:53)
[2023-10-06] MEDS: FLUTICASONE PROP 0.05% NASAL SPRAY 16 GM (FLONASE) NARES SCH (08:54)
[2023-10-06] MEDS: GABAPENTIN 300 MG CAP PO SCH ×3 (08:54→21:32)
[2023-10-06] MEDS: ASPIRIN 81MG ENTERIC TABLET PO SCH (08:54)
[2023-10-06] MEDS: MECLIZINE 25 MG TABLET PO SCH ×3 (08:54→21:32)
[2023-10-06] MEDS: ACETAMINOPHEN 500 MG TAB PO SCH ×2 (08:54→21:32)
[2023-10-06] MEDS: ENOXAPARIN 40MG/0.4ML SYRINGE (J1650 PER 10MG) SC SCH (08:54)
[2023-10-06] MEDS: CLOPIDOGREL 75 MG TAB PO SCH (08:54)
[2023-10-06] MEDS: MAGNESIUM OXIDE 400MG TAB (MAG-OX) PO SCH ×2 (08:54→21:32)
[2023-10-06] MEDS: oxyCODONE 5MG TAB PO PRN ×2 (08:58→21:33)
[2023-10-06] MEDS: ONDANSETRON 4MG TAB PO PRN (10:18)
[2023-10-06] MEDS: ATORVASTATIN 20 MG TAB PO SCH (21:32)
[2023-10-06] MEDS: RAMELTEON 8 MG TAB (ROZEREM) PO PRN (21:32)
[2023-10-06] MEDS: QUEtiapine FUMARATE 100 MG TAB PO SCH (21:32)
[2023-10-06] MEDS: TOPIRAMATE (TopAMAX) 25 MG TAB PO SCH (21:33)
[2023-10-07 04:37] VITALS: BP 121/75; TEMP 98.4; O2SAT 95
[2023-10-07 06:11] LABS: BASO # 0.1 10^3/uL (0.0-0.2); BASO % 0.7 % (0.0-1.0); EOS # 0.3 10^3/uL (0.0-0.5); EOS % 3.9 % (0.0-3.0); HEMATOCRIT 40.1 % (42.0-52.0); LYMPH # 1.6 10^3/uL (1.5-5.0); LYMPH % 18.5 % (24.0-44.0); MEAN CORPUSCULAR HEMOGLOBIN 28.4 pg (27.0-33.0); MEAN CORPUSCULAR HGB CONC 32.4 g/dl (32.0-36.5); MEAN CORPUSCULAR VOLUME 87.7 fl (80.0-96.0); MONO # 0.7 10^3/uL (0.0-0.8); NEUTROPHILS # 5.9 10^3/uL (1.5-8.5); NEUTROPHILS % 67.8 % (36.0-66.0); PLATELET COUNT, AUTOMATED 148 10^3/uL (150-450); RED BLOOD COUNT 4.57 10^6/uL (4.30-6.10); WHITE BLOOD COUNT 8.7 10^3/uL (4.0-10.0)
[2023-10-07 06:20] LABS: ERYTHROCYTE SEDIMENTATION RATE 15 mm/hr (0-20)
[2023-10-07] MEDS: ADVAIR HFA 115/21MCG INHALER INH SCH ×2 (07:59→19:51)
[2023-10-07] MEDS: PANTOPRAZOLE 40MG TAB (PROTONIX) PO SCH (08:25)
[2023-10-07] MEDS: FLUTICASONE PROP 0.05% NASAL SPRAY 16 GM (FLONASE) NARES SCH (08:25)
[2023-10-07] MEDS: ASPIRIN 81MG ENTERIC TABLET PO SCH (08:25)
[2023-10-07] MEDS: MECLIZINE 25 MG TABLET PO SCH ×3 (08:25→21:19)
[2023-10-07] MEDS: CLOPIDOGREL 75 MG TAB PO SCH (08:25)
[2023-10-07] MEDS: GABAPENTIN 300 MG CAP PO SCH ×3 (08:25→21:18)
[2023-10-07] MEDS: ACETAMINOPHEN 500 MG TAB PO SCH ×2 (08:25→21:19)
[2023-10-07] MEDS: MAGNESIUM OXIDE 400MG TAB (MAG-OX) PO SCH ×2 (08:26→21:19)
[2023-10-07] MEDS: ENOXAPARIN 40MG/0.4ML SYRINGE (J1650 PER 10MG) SC SCH (08:26)
[2023-10-07] MEDS: LIDOCAINE 5% (LIDODERM) PATCH TD SCH (08:26)
[2023-10-07] MEDS: oxyCODONE 5MG TAB PO PRN (10:49)
[2023-10-07] MEDS: ATORVASTATIN 20 MG TAB PO SCH (21:18)
[2023-10-07] MEDS: RAMELTEON 8 MG TAB (ROZEREM) PO PRN (21:18)
[2023-10-07] MEDS: TOPIRAMATE (TopAMAX) 25 MG TAB PO SCH (21:19)
[2023-10-07] MEDS: QUEtiapine FUMARATE 100 MG TAB PO SCH (21:19)
[2023-10-08 04:25] VITALS: BP 107/59; TEMP 98.4; O2SAT 95
[2023-10-08] MEDS ORDERED: SERO1TAB PO (07:42)
[2023-10-08] MEDS ORDERED: ALBU8.5H INH (07:42)
[2023-10-08] MEDS ORDERED: ASPI81TA26 PO (07:42)
[2023-10-08] MEDS ORDERED: PANT40TA29 PO (07:42)
[2023-10-08] MEDS ORDERED: MECL-86 PO (07:42)
[2023-10-08] MEDS ORDERED: OXYC-517 PO (07:42)
[2023-10-08] MEDS ORDERED: GABA600T4 PO (07:42)
[2023-10-08] MEDS ORDERED: ADVA115A INH (07:42)
[2023-10-08] MEDS ORDERED: CLOP75TA2 PO (07:42)
[2023-10-08] MEDS ORDERED: TOPI25TA10 PO (07:42)
[2023-10-08] MEDS ORDERED: ATOR80TA59 PO (07:42)
[2023-10-08] MEDS ORDERED: ACET-683 PO (07:44)
[2023-10-08] MEDS: ASPIRIN 81MG ENTERIC TABLET PO SCH (08:30)
[2023-10-08] MEDS: ACETAMINOPHEN 500 MG TAB PO SCH (08:30)
[2023-10-08] MEDS: PANTOPRAZOLE 40MG TAB (PROTONIX) PO SCH (08:31)
[2023-10-08] MEDS: MECLIZINE 25 MG TABLET PO SCH (08:31)
[2023-10-08] MEDS: CLOPIDOGREL 75 MG TAB PO SCH (08:31)
[2023-10-08] MEDS: FLUTICASONE PROP 0.05% NASAL SPRAY 16 GM (FLONASE) NARES SCH (08:31)
[2023-10-08] MEDS: ENOXAPARIN 40MG/0.4ML SYRINGE (J1650 PER 10MG) SC SCH (08:31)
[2023-10-08] MEDS: MAGNESIUM OXIDE 400MG TAB (MAG-OX) PO SCH (08:31)
[2023-10-08] MEDS: GABAPENTIN 300 MG CAP PO SCH (08:31)
[2023-10-08] MEDS: LIDOCAINE 5% (LIDODERM) PATCH TD SCH (08:31)
[2023-10-08] MEDS: oxyCODONE 5MG TAB PO PRN (08:36)
[2023-10-08] MEDS: ADVAIR HFA 115/21MCG INHALER INH SCH (08:48)
== END 2023-10-08 10:16 | disposition home or self-care (01) ==
LOC: EDBD 11:14 → M ED 11:14 → M ED INP 11:15 → INTOOBSV 16:45 → UNDOADMOB 16:45 → M PCU 18:30 → M ED INP 18:30 → M PCU 18:30 → OBSVTOIN 09-22 06:59 → INTOOBSV 09-22 06:59 → M PCU 09-22 15:43 → M MSPAV 09-22 15:43
PROVIDERS: ADMIT Family Medicine; ATTEND Internal Medicine Nephrology
DX: R42 Dizziness and giddiness (principal); G62.9 Polyneuropathy, unspecified; G43.909 Migraine, unspecified, not intractable, without status migrainosus; R20.2 Paresthesia of skin; R41.0 Disorientation, unspecified; E83.42 Hypomagnesemia; I69.354 Hemiplegia and hemiparesis following cerebral infarction affecting left non-dominant side; I69.321 Dysphasia following cerebral infarction; I69.398 Other sequelae of cerebral infarction; R26.2 Difficulty in walking, not elsewhere classified; F01.50 Vascular dementia, unspecified severity, without behavioral disturbance, psychotic disturbance, mood disturbance, and anxiety; R53.83 Other fatigue; R10.9 Unspecified abdominal pain; K72.91 Hepatic failure, unspecified with coma; I11.9 Hypertensive heart disease without heart failure; F10.11 Alcohol abuse, in remission; F19.10 Other psychoactive substance abuse, uncomplicated; F17.210 Nicotine dependence, cigarettes, uncomplicated; J44.9 Chronic obstructive pulmonary disease, unspecified; E78.5 Hyperlipidemia, unspecified; B18.2 Chronic viral hepatitis C; K21.9 Gastro-esophageal reflux disease without esophagitis; M54.9 Dorsalgia, unspecified; F31.9 Bipolar disorder, unspecified; F41.9 Anxiety disorder, unspecified; F32.A Depression, unspecified; Z91.51 Personal history of suicidal behavior; Z91.81 History of falling; Z59.00 Homelessness unspecified; Z91.148 Patient's other noncompliance with medication regimen for other reason; Z88.8 Allergy status to other drugs, medicaments and biological substances; Z88.5 Allergy status to narcotic agent; Z79.899 Other long term (current) drug therapy; Z79.82 Long term (current) use of aspirin; Z79.02 Long term (current) use of antithrombotics/antiplatelets; Z83.3 Family history of diabetes mellitus; Z80.1 Family history of malignant neoplasm of trachea, bronchus and lung; Z82.49 Family history of ischemic heart disease and other diseases of the circulatory system; Z82.0 Family history of epilepsy and other diseases of the nervous system
CPT/HCPCS: 36415; 70450; 70496; 70498; 70551; 71045; 72125; 73030; 73060; 80047; 80048; 80053; 80061; 80076; 80307; 81001; 82140; 82550; 82553; 83735; 85025; 85027; 85610; 85652; 85730; 86140; 86618; 86705; 86706; 86803; 86850; 86900; 86901; 87040; 87340; 87522; 87631; 93005; 93041; 93306; 94640; 94760; 96372; 96374; 97110; 97116; 97161; 97165; 97530; 99285; J1650; J1885; J3475; Q9967

== ENCOUNTER → 2023-10-22 | Outpatient (CLI) | payer MEDICAID, OTHER ==
[~2023-10-22] MED LIST changes: +ACET-683 PO; +ADVA115A INH; +MECL-86 PO; +OXYC-517 PO; +med rec comment
== END ==
LOC: M PLALAB 13:30
PROVIDERS: ATTEND Student in an Organized Health Care Education/Training Program
DX: R05.1 Acute cough (principal); Z79.899 Other long term (current) drug therapy

== ENCOUNTER 2023-11-23 21:08 | Emergency (ER) | payer MEDICAID, OTHER ==
[~2023-11-23] VITALS: Ht 167.6 cm; Wt 210.0 kg
[2023-11-23 21:12] VITALS: BP 123/78; TEMP 96.6; O2SAT 98
[2023-11-25] MEDS ORDERED: PRED10TA2 PO (15:02)
== END 2023-11-23 22:04 | disposition left against medical advice (07) ==
LOC: M ED 21:08
DX: Z53.21 Procedure and treatment not carried out due to patient leaving prior to being seen by health care provider (principal)

== ENCOUNTER → 2024-03-26 | Outpatient (CLI) | payer OTHER ==
[~2024-03-26] MED LIST changes: +PRED10TA2 PO
== END ==
LOC: M RAD 12:33
PROVIDERS: ATTEND Internal Medicine Pulmonary Disease
DX: Z12.2 Encounter for screening for malignant neoplasm of respiratory organs (principal); F17.218 Nicotine dependence, cigarettes, with other nicotine-induced disorders

== ENCOUNTER 2024-06-29 19:18 | Emergency (ER) | payer OTHER ==
[~2024-06-29] VITALS: Ht 170.2 cm; Wt 92.5 kg
[2024-06-29 20:28] LABS: BASO # 0.1 10^3/uL (0.0-0.2); BASO % 0.5 % (0.0-1.0); EOS # 0.4 10^3/uL (0.0-0.5); EOS % 3.2 % (0.0-3.0); HEMATOCRIT 52.1 % (42.0-52.0); HEMOGLOBIN 16.7 g/dl (13.5-17.5); LYMPH # 2.5 10^3/uL (1.5-5.0); LYMPH % 22.9 % (24.0-44.0); MEAN CORPUSCULAR HEMOGLOBIN 28.1 pg (27.0-33.0); MEAN CORPUSCULAR HGB CONC 32.1 g/dl (32.0-36.5); MEAN CORPUSCULAR VOLUME 87.7 fl (80.0-96.0); MONO # 0.8 10^3/uL (0.0-0.8); MONO % 7.6 % (2.0-8.0); NEUTROPHILS # 7.2 10^3/uL (1.5-8.5); NEUTROPHILS % 65.3 % (36.0-66.0); PLATELET COUNT, AUTOMATED 275 10^3/uL (150-450); RED BLOOD COUNT 5.94 10^6/uL (4.30-6.10); WHITE BLOOD COUNT 11.1 10^3/uL (4.0-10.0)
[2024-06-29] MEDS ORDERED: ASPIRIN 81MG CHEW TABLET PO ONE (20:35)
[2024-06-29 20:42] LABS: CK-MB VALUE MASS 26.9 NG/ML (<3.6)
[2024-06-29 20:47] LABS: LIPASE 36 U/L (12-53)
[2024-06-29 20:49] LABS: ALBUMIN 3.6 G/DL (3.2-5.2); ALKALINE PHOSPHATASE 113 U/L (46-116); ALT/SGPT 94 U/L (7.0-40); AST/SGOT 76 U/L (<34); BILIRUBIN,DIRECT < 0.1 MG/DL (<0.4); BILIRUBIN,TOTAL 0.3 MG/DL (0.3-1.2); BLOOD UREA NITROGEN 5 MG/DL (9-23); CALCIUM LEVEL 9.1 MG/DL (8.5-10.1); CARBON DIOXIDE LEVEL 28 MMOL/L (20-31); CHLORIDE LEVEL 105 MMOL/L (98-107); GLOMERULAR FILTRATION RATE > 60.0 (>56); GLUCOSE, FASTING 84 MG/DL (60-100); POTASSIUM SERUM 4.6 MMOL/L (3.5-5.1); SODIUM LEVEL 140 MMOL/L (136-145); TOTAL PROTEIN 8.6 G/DL (5.7-8.2)
[2024-06-29 20:54] LABS: CPK CREATINE PHOSPHOKINASE 144 U/L (46-171); MB/CK RELATIVE INDEX 18.68 (< OR =4)
[2024-06-29] MEDS: NITROGLYCERIN 0.4MG SUBL TABLET SL PRN (20:55)
[2024-06-29 21:04] LABS: INR 1.17; PARTIAL THROMBOPLASTIN TIME 25.7 SECONDS (24.8-34.2); PROTHROMBIN TIME 14.6 SECONDS (12.5-14.5)
[2024-06-29 21:55] LABS: CK-MB VALUE MASS 28.4 NG/ML (<3.6)
[2024-06-29 21:59] LABS: MB/CK RELATIVE INDEX 20.14 (< OR =4)
[2024-06-29] MEDS ORDERED: HEPARIN SOD (PORCINE) 5000UNITS/ML 1ML VIAL/SYRINGE IV PRN (22:10)
[2024-06-29] MEDS: CLOPIDOGREL 300 MG TAB (PLAVIX) PO STA (22:25)
[2024-06-29] MEDS: HEPARIN DRIP 25,000 UNITS in IV 1 EA IV SCH (22:39)
[2024-06-29] MEDS: HEPARIN SOD (PORCINE) 5000UNITS/ML 1ML VIAL/SYRINGE IV ONE (22:41)
[2024-06-29 23:00] VITALS: BP 136/82; TEMP 97.8
[2024-06-29] MEDS ORDERED: MORPHINE 2 MG/ML 1ML VIAL As Ordered ONE (23:02)
[2024-06-29 23:05] VITALS: O2SAT 99
[2024-06-29] MEDS: MORPHINE 2 MG/ML 1ML VIAL IV ONE (23:05)
== END 2024-06-29 23:33 | disposition short-term general hospital (02) ==
LOC: M ED 19:18
DX: I21.4 Non-ST elevation (NSTEMI) myocardial infarction (principal); I10 Essential (primary) hypertension; E78.5 Hyperlipidemia, unspecified; I25.119 Atherosclerotic heart disease of native coronary artery with unspecified angina pectoris; J44.9 Chronic obstructive pulmonary disease, unspecified; F17.210 Nicotine dependence, cigarettes, uncomplicated; Z88.5 Allergy status to narcotic agent; Z88.8 Allergy status to other drugs, medicaments and biological substances; Z79.1 Long term (current) use of non-steroidal anti-inflammatories (NSAID); Z79.51 Long term (current) use of inhaled steroids; Z79.52 Long term (current) use of systemic steroids; Z79.899 Other long term (current) drug therapy

== ENCOUNTER 2024-12-07 12:32 | Emergency (ER) | payer MEDICAID, OTHER ==
[~2024-12-07] VITALS: Ht 167.6 cm; Wt 94.5 kg
[~2024-12-07 12:32] MED LIST changes: -ADV100INH INH; -ADV250INH INH; +ADVA1AER8 INH; +ADVA1AER9 INH; +GABA-1172 PO; +GABA-1490 PO; -GABA-282 PO; -GABA600T4 PO
[2024-12-07 13:44] LABS: BASO # 0.1 10^3/uL (0.0-0.2); BASO % 0.4 % (0.0-1.0); EOS # 0.2 10^3/uL (0.0-0.5); EOS % 1.1 % (0.0-3.0); HEMATOCRIT 49.3 % (42.0-52.0); HEMOGLOBIN 16.3 g/dl (13.5-17.5); LYMPH # 1.7 10^3/uL (1.5-5.0); LYMPH % 10.8 % (24.0-44.0); MEAN CORPUSCULAR HEMOGLOBIN 27.6 pg (27.0-33.0); MEAN CORPUSCULAR HGB CONC 33.1 g/dl (32.0-36.5); MEAN CORPUSCULAR VOLUME 83.6 fl (80.0-96.0); MONO # 0.7 10^3/uL (0.0-0.8); MONO % 4.7 % (2.0-8.0); NEUTROPHILS # 12.9 10^3/uL (1.5-8.5); NEUTROPHILS % 82.6 % (36.0-66.0); PLATELET COUNT, AUTOMATED 249 10^3/uL (150-450); WHITE BLOOD COUNT 15.6 10^3/uL (4.0-10.0)
[2024-12-07 13:49] LABS: ERYTHROCYTE SEDIMENTATION RATE 49 mm/hr (0-20)
[2024-12-07] MEDS: ACETAMINOPHEN *IV* 1,000 MG in IV 1 EA IV ONE (13:52)
[2024-12-07 14:01] LABS: C REACTIVE PROTEIN QUANTITATIV 1.24 MG/DL (<1.0)
[2024-12-07 14:07] LABS: URIC ACID 5.6 MG/DL (3.7-9.2)
[2024-12-07 14:21] LABS: BLOOD UREA NITROGEN 11 MG/DL (9-23); CALCIUM LEVEL 9.4 MG/DL (8.5-10.1); CARBON DIOXIDE LEVEL 28 MMOL/L (20-31); CHLORIDE LEVEL 101 MMOL/L (98-107); CREATININE FOR GFR 0.78 MG/DL (0.70-1.30); GLOMERULAR FILTRATION RATE > 60.0 (>56); GLUCOSE, FASTING 115 MG/DL (60-100); SODIUM LEVEL 137 MMOL/L (136-145)
[2024-12-07] MEDS: KETOROLAC 60MG 2ML VIAL IM ONE (17:18)
[2024-12-07] MEDS: DALBAVANCIN 1,500 MG in D5W 250 ML IV ONE (17:18)
[2024-12-07] MEDS: METHOCARBAMOL 1,000 MG/10 ML VIAL IV ONE (18:05)
[2024-12-07] MEDS ORDERED: ACET500P3 PO (18:51)
[2024-12-07] MEDS ORDERED: NAPR1TAB83 PO (18:51)
[2024-12-07] MEDS ORDERED: METH-1164 PO (18:51)
[2024-12-07 19:02] VITALS: BP 101/58; TEMP 98.4; O2SAT 98
== END 2024-12-07 19:05 | disposition home or self-care (01) ==
LOC: M ED 12:32
DX: L03.113 Cellulitis of right upper limb (principal); I25.2 Old myocardial infarction; J44.9 Chronic obstructive pulmonary disease, unspecified; G47.33 Obstructive sleep apnea (adult) (pediatric); K21.9 Gastro-esophageal reflux disease without esophagitis; Z86.73 Personal history of transient ischemic attack (TIA), and cerebral infarction without residual deficits; F17.210 Nicotine dependence, cigarettes, uncomplicated; F12.10 Cannabis abuse, uncomplicated; Z88.5 Allergy status to narcotic agent; Z88.8 Allergy status to other drugs, medicaments and biological substances; Z79.1 Long term (current) use of non-steroidal anti-inflammatories (NSAID); Z79.51 Long term (current) use of inhaled steroids; Z79.52 Long term (current) use of systemic steroids; Z79.899 Other long term (current) drug therapy
CPT/HCPCS: 73110; 73200; 80048; 83605; 84550; 85025; 85652; 86140; 87040; 87070; 87077; 87186; 87205; 96365; 96366; 96372; 96375; 99284; J0131; J0875; J1885; J2800

== ENCOUNTER 2025-01-02 03:16 | Emergency (ER) | payer OTHER ==
[~2025-01-02] VITALS: Ht 167.6 cm; Wt 85.7 kg
[~2025-01-02 03:16] MED LIST changes: +ACET500P3 PO; +METH-1164 PO; +NAPR1TAB83 PO
[2025-01-02 03:54] LABS: BASO # 0.1 10^3/uL (0.0-0.2); BASO % 0.7 % (0.0-1.0); EOS # 0.4 10^3/uL (0.0-0.5); EOS % 5.1 % (0.0-3.0); HEMATOCRIT 45.7 % (42.0-52.0); LYMPH # 2.5 10^3/uL (1.5-5.0); LYMPH % 35.3 % (24.0-44.0); MEAN CORPUSCULAR HEMOGLOBIN 27.2 pg (27.0-33.0); MEAN CORPUSCULAR HGB CONC 32.8 g/dl (32.0-36.5); MEAN CORPUSCULAR VOLUME 82.9 fl (80.0-96.0); MONO # 0.5 10^3/uL (0.0-0.8); MONO % 7.1 % (2.0-8.0); NEUTROPHILS # 3.6 10^3/uL (1.5-8.5); NEUTROPHILS % 51.7 % (36.0-66.0); PLATELET COUNT, AUTOMATED 220 10^3/uL (150-450); RED BLOOD COUNT 5.51 10^6/uL (4.30-6.10); WHITE BLOOD COUNT 7.1 10^3/uL (4.0-10.0)
[2025-01-02 04:07] LABS: INR 0.97; PROTHROMBIN TIME 13.2 SECONDS (12.5-14.5)
[2025-01-02 04:15] LABS: LIPASE 40 U/L (12-53)
[2025-01-02 04:16] LABS: CK-MB VALUE MASS 2.6 NG/ML (<3.6)
[2025-01-02 04:17] LABS: ALBUMIN 3.3 G/DL (3.2-5.2); ALKALINE PHOSPHATASE 80 U/L (40-129); ALT/SGPT 44 U/L (7.0-40); AST/SGOT 38 U/L (<34); BILIRUBIN,DIRECT < 0.1 MG/DL (<0.4); BILIRUBIN,TOTAL 0.3 MG/DL (0.3-1.2); BLOOD UREA NITROGEN 13 MG/DL (9-23); CARBON DIOXIDE LEVEL 29 MMOL/L (20-31); CHLORIDE LEVEL 105 MMOL/L (98-107); CREATININE FOR GFR 0.75 MG/DL (0.70-1.30); GLOMERULAR FILTRATION RATE > 60.0 (>56); GLUCOSE, FASTING 125 MG/DL (60-100); POTASSIUM SERUM 4.4 MMOL/L (3.5-5.1); SODIUM LEVEL 141 MMOL/L (136-145)
[2025-01-02 05:00] LABS: CPK CREATINE PHOSPHOKINASE 102 U/L (46-171); MB/CK RELATIVE INDEX 2.54 (< OR =4)
[2025-01-02] MEDS: ONDANSETRON 4MG 2ML VIAL IV ONE (08:06)
[2025-01-02] MEDS: MORPHINE 2 MG/ML 1ML VIAL IV PRN (08:07)
[2025-01-02] MEDS ORDERED: ISOVUE-370 76% 100ML VIAL As Ordered ONE (08:12)
[2025-01-02] MEDS ORDERED: METH-1164 PO (12:01)
[2025-01-02] MEDS ORDERED: PERC5TAB12 PO (12:02)
[2025-01-02 12:18] VITALS: BP 130/72; TEMP 97.8; O2SAT 94
== END 2025-01-02 12:06 | disposition home or self-care (01) ==
LOC: M ED 03:16
DX: R07.9 Chest pain, unspecified (principal); M87.052 Idiopathic aseptic necrosis of left femur; I10 Essential (primary) hypertension; M25.552 Pain in left hip; I25.119 Atherosclerotic heart disease of native coronary artery with unspecified angina pectoris; E78.5 Hyperlipidemia, unspecified; I25.2 Old myocardial infarction; K21.9 Gastro-esophageal reflux disease without esophagitis; F41.9 Anxiety disorder, unspecified; F32.A Depression, unspecified; Z88.5 Allergy status to narcotic agent; Z88.8 Allergy status to other drugs, medicaments and biological substances; Z79.1 Long term (current) use of non-steroidal anti-inflammatories (NSAID); Z79.51 Long term (current) use of inhaled steroids; Z79.52 Long term (current) use of systemic steroids; Z79.899 Other long term (current) drug therapy
CPT/HCPCS: 71045; 71275; 73502; 73700; 74174; 80053; 82248; 82550; 82553; 83690; 83735; 84484; 85025; 85610; 93005; 93041; 93971; 94760; 96374; 96375; 99285; J2405; Q9967

== ENCOUNTER 2025-08-02 06:01 | Inpatient (IN) | payer OTHER ==
[~2025-08-02] VITALS: Ht 167.6 cm; Wt 90.9 kg
[~2025-08-02 06:01] MED LIST changes: -IBUP-1022 PO; +IBUP600T42 PO; +PERC5TAB12 PO; +TOPI-256 PO; -TOPI25TA10 PO
[2025-08-02 06:13] VITALS: TEMP 98
[2025-08-02] MEDS: NS 500 ML IV ONE (07:45)
[2025-08-02] MEDS ORDERED: IPRATROPIUM 0.5 MG/ALBUTEROL 2.5 MG INH SOL UD 3 ML NEB PRN (07:45)
[2025-08-02 08:38] LABS: BASO # 0.0 10^3/uL (0.0-0.2); BASO % 0.3 % (0.0-1.0); EOS # 0.1 10^3/uL (0.0-0.5); EOS % 0.8 % (0.0-3.0); LYMPH # 0.9 10^3/uL (1.5-5.0); LYMPH % 6.8 % (24.0-44.0); MONO # 0.4 10^3/uL (0.0-0.8); MONO % 3.1 % (2.0-8.0); NEUTROPHILS # 11.9 10^3/uL (1.5-8.5); NEUTROPHILS % 88.4 % (36.0-66.0); PLATELET COUNT, AUTOMATED 217 10^3/uL (150-450)
[2025-08-02 08:55] LABS: BARBITURATES URINE NEGATIVE (NEGATIVE); BENZODIAZEPINES URINE NEGATIVE (NEGATIVE); CANNABINOIDS URINE NEGATIVE (NEGATIVE); COCAINE METABOLITE URINE NEGATIVE (NEGATIVE); METHADONE URINE NEGATIVE (NEGATIVE); OPIATES URINE NEGATIVE (NEGATIVE); PHENCYCLIDINE URINE NEGATIVE (NEGATIVE)
[2025-08-02 08:57] LABS: AMPHETAMINES LEVEL URINE POSITIVE (NEGATIVE)
[2025-08-02 09:01] LABS: ALT/SGPT 58 U/L (7.0-40); AST/SGOT 49 U/L (<34); CALCIUM LEVEL 10.5 MG/DL (8.5-10.1); CARBON DIOXIDE LEVEL 29 MMOL/L (20-31); CHLORIDE LEVEL 99 MMOL/L (98-107); CREATININE FOR GFR 0.68 MG/DL (0.70-1.30); GLOMERULAR FILTRATION RATE > 90.0 (>56); POTASSIUM SERUM 5.2 MMOL/L (3.5-5.1); SODIUM LEVEL 136 MMOL/L (136-145)
[2025-08-02] MEDS ORDERED: ISOVUE-370 76% 100 ML VIAL As Ordered ONE (09:45)
[2025-08-02 11:49] LABS: VENOUS BASE EXCESS 1.6 (-2.0-2.0); VENOUS HCO3 26.8 MMOL/L (23.0-27.0); VENOUS O2 SATURATION 97.2 % (60.0-80.0); VENOUS PARTIAL PRESSURE CO2 43.6 mmHg (38.0-50.0); VENOUS PARTIAL PRESSURE O2 92.2 mmHg (30.0-50.0); VENOUS PH 7.406 UNITS (7.330-7.430); VENOUS STANDARD HCO3 25.9 MMOL/L; VENOUS TOTAL CO2 28.1 MMOL/L (24.0-28.0)
[2025-08-02 11:51] LABS: CPK CREATINE PHOSPHOKINASE 62 U/L (46-171)
[2025-08-02] MEDS ORDERED: ACETAMINOPHEN 325 MG TAB PO PRN (12:25)
[2025-08-02] MEDS ORDERED: MOM 30 ML SUSPENSION UDC PO PRN (12:25)
[2025-08-02] MEDS: MECLIZINE 25 MG TABLET PO ONE (12:32)
[2025-08-02] MEDS ORDERED: GABA-1490 PO (12:44)
[2025-08-02] MEDS ORDERED: VENTAER INH (12:44)
[2025-08-02] MEDS ORDERED: ADVA1AER8 INH (12:44)
[2025-08-02] MEDS ORDERED: HOME MED LIST COMPLETE! XX SCH (12:45)
[2025-08-02] MEDS ORDERED: KETOROLAC 30 MG/ML 1 ML VIAL IV PRN (13:35)
[2025-08-02] MEDS ORDERED: ONDANSETRON 4MG 2ML VIAL IV PRN (13:35)
[2025-08-02] MEDS: IPRATROPIUM 0.5 MG/ALBUTEROL 2.5 MG INH SOL UD 3 ML NEB SCH (15:52)
[2025-08-02 17:45] VITALS: BP 107/57
[2025-08-02 18:15] VITALS: O2SAT 96
[2025-08-02] MEDS ORDERED: SYMBICORT 160/4.5MCG INHALER 6GM INH SCH (20:00)
[2025-08-02] MEDS ORDERED: MECLIZINE 25 MG TABLET PO PRN (20:00)
[2025-08-02] MEDS ORDERED: DOCUSATE SODIUM 100 MG CAPSULE PO SCH (21:00)
[2025-08-02] MEDS ORDERED: PANTOPRAZOLE 40MG TAB PO SCH (21:00)
[2025-08-02] MEDS ORDERED: TOPIRAMATE 25 MG TAB PO SCH (21:00)
[2025-08-02] MEDS ORDERED: GABAPENTIN 300 MG CAP PO SCH (21:00)
[2025-08-03] MEDS ORDERED: ASPIRIN 81 MG ENTERIC TABLET PO SCH (09:00)
[2025-08-03] MEDS ORDERED: CLOPIDOGREL 75 MG TAB PO SCH (09:00)
[2025-08-03] MEDS ORDERED: ATORVASTATIN 20 MG TAB PO SCH (09:00)
[2025-08-03] MEDS ORDERED: ENOXAPARIN 40 MG/0.4 ML SYRINGE (J1650 PER 10MG) SC SCH (09:00)
[2025-08-03] MEDS ORDERED: PANTOPRAZOLE 40MG VIAL IV SCH (09:00)
== END 2025-08-02 19:27 | disposition left against medical advice (07) | DRG 140 ==
LOC: M ED 06:01 → M ED INP 12:25
PROVIDERS: ADMIT Internal Medicine Nephrology; ATTEND Internal Medicine Nephrology
DX: J44.1 Chronic obstructive pulmonary disease with (acute) exacerbation (principal); I69.354 Hemiplegia and hemiparesis following cerebral infarction affecting left non-dominant side; F01.50 Vascular dementia, unspecified severity, without behavioral disturbance, psychotic disturbance, mood disturbance, and anxiety; R26.89 Other abnormalities of gait and mobility; R42 Dizziness and giddiness; H53.8 Other visual disturbances; G43.709 Chronic migraine without aura, not intractable, without status migrainosus; Z79.82 Long term (current) use of aspirin; Z79.899 Other long term (current) drug therapy; Z79.02 Long term (current) use of antithrombotics/antiplatelets; Z88.5 Allergy status to narcotic agent; Z88.8 Allergy status to other drugs, medicaments and biological substances; I69.398 Other sequelae of cerebral infarction; J43.2 Centrilobular emphysema; B18.2 Chronic viral hepatitis C; E78.5 Hyperlipidemia, unspecified; I10 Essential (primary) hypertension; K21.9 Gastro-esophageal reflux disease without esophagitis; F31.9 Bipolar disorder, unspecified; F41.9 Anxiety disorder, unspecified; F17.210 Nicotine dependence, cigarettes, uncomplicated

== ENCOUNTER 2025-11-13 12:47 | Emergency (ER) | payer MEDICAID, OTHER ==
[~2025-11-13] VITALS: Ht 170.2 cm; Wt 85.0 kg
[~2025-11-13 12:47] MED LIST changes: +MELA10TA30 PO; -RA M10TA PO
[2025-11-13 13:39] LABS: BASO # 0.1 10^3/uL (0.0-0.2); BASO % 0.7 % (0.0-1.0); EOS # 0.4 10^3/uL (0.0-0.5); EOS % 5.2 % (0.0-3.0); LYMPH # 1.5 10^3/uL (1.5-5.0); LYMPH % 20.4 % (24.0-44.0); MONO # 0.5 10^3/uL (0.0-0.8); MONO % 7.0 % (2.0-8.0); NEUTROPHILS # 5.0 10^3/uL (1.5-8.5); NEUTROPHILS % 66.3 % (36.0-66.0); PLATELET COUNT, AUTOMATED 217 10^3/uL (150-450)
[2025-11-13 14:07] LABS: CK-MB VALUE MASS 2.9 NG/ML (<3.6)
[2025-11-13 14:13] LABS: ALT/SGPT 38 U/L (7.0-40); AST/SGOT 38 U/L (<34); CALCIUM LEVEL 9.0 MG/DL (8.5-10.1); CARBON DIOXIDE LEVEL 30 MMOL/L (20-31); CHLORIDE LEVEL 102 MMOL/L (98-107); CPK CREATINE PHOSPHOKINASE 57 U/L (46-171); CREATININE FOR GFR 0.79 MG/DL (0.70-1.30); FREE T4 1.04 NG/DL (0.89-1.76); GLOMERULAR FILTRATION RATE > 90.0 (>56); MB/CK RELATIVE INDEX 5.08 (< OR =4); POTASSIUM SERUM 4.1 MMOL/L (3.5-5.1); SODIUM LEVEL 139 MMOL/L (136-145)
[2025-11-13 15:05] LABS: CK-MB VALUE MASS 2.7 NG/ML (<3.6)
[2025-11-13 15:10] LABS: CPK CREATINE PHOSPHOKINASE 51.0 U/L (46-171); MB/CK RELATIVE INDEX 5.29 (< OR =4)
[2025-11-13 16:52] VITALS: BP 131/89; TEMP 98; O2SAT 99
== END 2025-11-13 16:55 | disposition home or self-care (01) ==
LOC: M ED 12:47
DX: R07.9 Chest pain, unspecified (principal); B34.9 Viral infection, unspecified; I25.2 Old myocardial infarction; I10 Essential (primary) hypertension; E78.5 Hyperlipidemia, unspecified; K21.9 Gastro-esophageal reflux disease without esophagitis; B18.2 Chronic viral hepatitis C; Z86.73 Personal history of transient ischemic attack (TIA), and cerebral infarction without residual deficits; Z88.5 Allergy status to narcotic agent; Z88.8 Allergy status to other drugs, medicaments and biological substances; Z79.51 Long term (current) use of inhaled steroids; Z79.1 Long term (current) use of non-steroidal anti-inflammatories (NSAID); Z79.899 Other long term (current) drug therapy